=== PATIENT | male | born 1955 | race Caucasian/White ===

== ENCOUNTER 2023-01-30 08:09 | Day surgery (SDC) | payer MEDICARE, SELFPAY ==
--- NOTE | 2023-01-29 13:13 | HO.ANESPROP2 ---
HPI - Anesthesia Eval Consult details Narrative: 67yo M for Colonoscopy Follows [facility] yearly with echo. Pt reports stable witout CP/SOB. Called 01/29/2023 for office visit, ECHO, device interr. Non-ischemic CMP (d/t radiation for non-hodgkin's lymphoma) with ICD - remote monitoring Aortic stenosis - moderate Xarelto for afib - ok to hold PMFSH Past Medical History Medical History Afib Aortic stenosis Asthma with COPD BPH (benign prostatic hyperplasia) Hodgkins disease Hyperlipidemia Left bundle branch block Nonischemic cardiomyopathy Presence of combination internal cardiac defibrillator (ICD) and pacemaker Surgical History Surgical History Hx of splenectomy Social History Social History Patient Tobacco Use Status: Former Tobacco user Are you DNR?: No Advance Directives: No Advance Directives Information Provided: Yes Nutrition Risks: No Nutritional Risk Meds Allergies Allergy/AdvReac Type Severity Reaction Status Date / Time No Known Allergies Allergy Verified 01/29/23 07:18 Home Medications Medication Instructions Recorded Confirmed Last Taken Type Wixela Inhub 01/29/23 Unknown History Xarelto 01/29/23 01/24/23 History carvedilol 25 mg tablet mg 01/29/23 01/29/23 01/30/23 History diazepam 5 mg tablet mg 01/29/23 Unknown History pentoxifylline 400 mg mg PO 01/29/23 Unknown History tablet,extended release rosuvastatin 40 mg tablet mg 01/29/23 Unknown History sacubitril 24 mg-valsartan 26 mg tab 01/29/23 Unknown History tablet (Entresto) Exam Exam Date and Time: January 29, 2023 1313 Narrative Narrative: ICD interr 12/2022 on chart. No shocks, VT/VF Per office visit 10/2022 ECHO 2020 EF 40-45% Grade 1 DD Moderate with mean pressure gradient of 14, DIMPLE 1.5 No pulm htn Assessment and Plan Assessment Anesthesia Assessment: Chart Reviewed
[2023-01-30 08:24] VITALS: BP 125/65; PULSE 89; RESP 18; TEMP 36.6; O2SAT 96
[2023-01-30] MEDS: Lactated Ringers 1,000 ML 50 ML IVCONT (08:48)
--- NOTE | 2023-01-30 09:28 | HO.ANESPROP2 ---
FORM[facility]LY [facility] Past Medical History Medical History Afib Aortic stenosis Asthma with COPD BPH (benign prostatic hyperplasia) Hodgkins disease Hyperlipidemia Left bundle branch block Nonischemic cardiomyopathy Presence of combination internal cardiac defibrillator (ICD) and pacemaker Functional capacity: independent ambulation Surgical History Surgical History Hx of splenectomy Social History Social History Patient Tobacco Use Status: Former Tobacco user Are you DNR?: No Advance Directives: No Advance Directives Information Provided: Yes Nutrition Risks: No Nutritional Risk Meds Allergies Allergy/AdvReac Type Severity Reaction Status Date / Time No Known Allergies Allergy Verified 01/29/23 07:18 Active Medications: Current Medications Albuterol Sulfate (Albuterol Sulfate (0.083%) 2.5 Mg/3 Ml Vial.Neb) 2.5 mg INHALE ONCE PRN PRN Reason: Shortness of Breath/Wheezing Lactated Ringer's (Lr) 1,000 mls @ 50 mls/hr IVCONT .Q20H DANN Last Admin: 01/30/23 08:48 Dose: 50 mls/hr Home Medications Medication Instructions Recorded Confirmed Last Taken Type Wixela Inhub 01/29/23 Unknown History Xarelto 01/29/23 01/24/23 History carvedilol 25 mg tablet mg 01/29/23 01/29/23 01/30/23 History diazepam 5 mg tablet mg 01/29/23 Unknown History pentoxifylline 400 mg mg PO 01/29/23 Unknown History tablet,extended release rosuvastatin 40 mg tablet mg 01/29/23 Unknown History sacubitril 24 mg-valsartan 26 mg tab 01/29/23 Unknown History tablet (Entresto) Exam Exam Date and Time: January 30, 2023927 Height,Weight and Vital Signs: Last Vital Signs Temp 98 F 01/30/23 08:24 Pulse 89 01/30/23 08:24 Resp 18 01/30/23 08:24 BP 125/65 01/30/23 08:24 Pulse Ox 96 01/30/23 08:24 O2 Del Method Room Air 01/30/23 08:24 Airway Mallampati Class: II TM Dist: >3cm Neck ROM: Full Heart: RRR Lungs: CTA Assessment and Plan Final Anesthetic Review ASA Class: III Final Preanesthetic Review: Meds/Allgs Chart Reviewed, Consent Obtained/Reviewed and Anes Risks/Benef Reviewed Patient Risk: Intermediate Procedure Risk: Low Anesthetic Plan Anesthetic Plan: MAC: Disposition: Standard PACU
[2023-01-30 10:00] VITALS: BMI 24.4
--- NOTE | 2023-01-30 10:05 | MHC.SHP ---
Pre-Procedural Eval Section A Date of Service: 01/30/23 Section B Chief Complaint: Other fecal abnormalities Details of Present Illness: see H&P Relevant Family History (Specify if Yes): No Relevant Social History: None Present Medications: see Short Stay Collaborative assessment Medical History: Significant History History of Previous Operations: No relevant previous surgery Allergies: Allergies Allergy/AdvReac Type Severity Reaction Status Date / Time No Known Allergies Allergy Verified 01/29/23 07:18 Review of Systems Sugical H&P ROS: Negative: Constitution, Cardiovascular, Respiratory, Neurological, Psychiatric, Hem-Onc, Allergic/Immunologic, Gastrointestinal, Genitourinary, Musculoskeletal, Integumentary, Endocrine and Eyes/Ears/Nose/Throat Exam Surgical H&P Exam: Normal: HEENT, Normal: Heart, Normal: Lungs, Normal: Extremities, Normal: Abdomen, Normal: Skin and Normal: Neurological Plan Diagnosis/Plan: Unchanged I have reviewed the history and physical and performed a pertinent physical examination on my patient. No changes have occurred unless specified. Time Spent With Patient Time: Total time managing care of this patient today ____ minutes.
--- NOTE | 2023-01-30 10:50 | HO.POSTANES ---
Post Anesthesia Evaluation Post Anesthesia Evaluation Date of Service: 01/30/23 Vital Signs: Vital Signs Temp Pulse Resp BP Pulse Ox O2 Del Method 01/30/23 08:24 98 F 89 18 125/65 96 Room Air Anesthesia: Monitored Mental Status: Awake Pain Control: Satisfactory Nausea/Vomiting: None Hydration: Adequate Anesthesia-Related Issues: No Anes. Related Issues
[2023-01-30 10:52] VITALS: BP 101/79; PULSE 82; RESP 16; TEMP 36.1; O2SAT 95
--- NOTE | 2023-01-30 11:01 | P.BOP_ITS ---
Brief Operative Note Date of Service: 01/30/23 Pre-op diagnosis: see H&P Post-op diagnosis: same Surgeon: Rico Ugalde Anesthesia: MAC Was an Utilization Coordinator used for this Procedure?: No Estimated blood loss (mL): 2 Pathology: other Condition: stable Disposition: PACU
[2023-01-30 11:03] VITALS: BP 106/57; PULSE 75; RESP 18; TEMP 36.1; O2SAT 95
--- NOTE | 2023-01-30 11:22 | OP_ITS ---
DATE OF SERVICE: 01/30/2023 SURGEON: Rico Ugalde MD INDICATIONS: Abnormal findings in stool. PREOPERATIVE DIAGNOSIS: POSTOPERATIVE DIAGNOSIS: PROCEDURE PERFORMED: Colonoscopy to the terminal ileum with biopsy and snare polypectomy. ESTIMATED BLOOD LOSS: COMPLICATIONS: ANESTHESIA: Monitored anesthesia care. ASSISTANTS: SPECIMENS: DESCRIPTION OF PROCEDURE: A history and physical was performed. The risks and benefits of the procedure were explained to the patient. Informed consent was obtained. The patient was placed in the left lateral decubitus position. A digital rectal exam was performed and was found to be normal. The Olympus pediatric video colonoscope was introduced into the rectum and advanced to the cecum. The cecum was identified by transillumination, palpation, and identification of ileocecal valve. Examination was performed. The scope was removed. He tolerated the procedure well and was returned to the recovery area in stable condition. FINDINGS: The terminal ileum was examined and appeared normal. The visualized colonic mucosa was within normal limits without evidence of masses or ulcers. Multiple colonic polyps were present, all were less than 10 mm. These were removed with a combination of biopsy forceps, cold snare polypectomies, and hot snare polypectomy. Single polyps were located in the right colon at 60 cm and 50 cm. Four polyps were located at 70 cm and two at 30 cm. Retroflexed examination showed small to moderate-sized internal hemorrhoids. The quality of the prep was good. IMPRESSION: Colon polyps. RECOMMENDATION: Follow up the biopsy results. MD YOMAIRA Khan/SHIELAL / [id number]
== END 2023-01-30 12:44 | disposition home or self-care (01) ==
PROVIDERS: PCP Internal Medicine Medical Oncology; Visit Provider Internal Medicine Gastroenterology
PROC: 0DJD8ZZ Inspection of Lower Intestinal Tract, Via Natural or Artificial Opening Endoscopic (ICD-10-PCS; CPT 45378; principal; 2023-01-30 09:40)
DX: D12.2 Benign neoplasm of ascending colon (principal); D12.4 Benign neoplasm of descending colon; D12.5 Benign neoplasm of sigmoid colon; K64.8 Other hemorrhoids; R19.5 Other fecal abnormalities; E78.5 Hyperlipidemia, unspecified; I44.7 Left bundle-branch block, unspecified; I48.91 Unspecified atrial fibrillation; Z85.71 Personal history of Hodgkin lymphoma; Z95.0 Presence of cardiac pacemaker; Z79.899 Other long term (current) drug therapy
CPT/HCPCS: 45380; 45385; 88305

== ENCOUNTER 2024-07-21 10:21 | Outpatient (REF) | payer MEDICARE, SELFPAY ==
[2024-07-21 13:42] LABS: Free T4 (Free Thyroxine) 1.15 ng/dL (0.71-1.85); Thyroid Stimulating Hormone 2.68 uIU/mL (0.32-4.0)
== END 2024-07-21 10:22 | disposition home or self-care (01) ==
LOC: HO.10HDL 10:21
PROVIDERS: Visit Provider Internal Medicine Medical Oncology
DX: Z00.00 Encounter for general adult medical examination without abnormal findings (principal); E04.1 Nontoxic single thyroid nodule; R63.4 Abnormal weight loss
CPT/HCPCS: 36415; 84134; 84439; 84443

== ENCOUNTER 2024-07-22 13:31 | Outpatient (AMB) | payer MEDICARE, SELFPAY ==
--- NOTE | 2024-07-22 13:33 | A.OFFVIS_ITS ---
Vital Signs 07/22/24 13:34 Weight 160 lb 14.999 oz BP 128/62 Blood Pressure Location Rt brachial Position Sitting Pulse 95 Pulse Source Pulse Oximeter Pulse Oximetry (%) 90 L Oxygen Delivery Method Room Air Intake Visit Reasons: Pulmonary Nodule Allergies No Known Allergies Allergy (Verified 07/22/24 13:38) Medication List - Last Reconciled 07/22/24 by Kaylyn Heredia LPN carvedilol mg diazepam mg pentoxifylline ER mg PO rosuvastatin mg sacubitril-valsartan 24-26 mg (Entresto) tabs [Wixela Inhub ] [Xarelto ] HPI HPI Pulmonary Nodule: Details: 68-year-old gentleman, remote approximately 15 pack-year smoker, quit over 30 years prior, with history of Hodgkin's lymphoma status post radiation 49 years prior who is being evaluated for TAVR at [facility] and as a part of evaluation had CT chest that demonstrated multiple pulmonary nodules. Patient is also complain of unintended weight loss of approximately 10 lb over the last 3 months. He has been using Wixela for underlying reactive airway disease. 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 [facility] Medical History (Updated 07/22/24 @ 14:18 by Jose Corey MD) Afib Presence of combination internal cardiac defibrillator (ICD) and pacemaker Asthma with COPD Left bundle branch block BPH (benign prostatic hyperplasia) Aortic stenosis Nonischemic cardiomyopathy Hodgkins disease Hyperlipidemia Surgical History Hx of splenectomy Social History (Updated 07/22/24 @ 13:39 by Kaylyn Heredia LPN) Patient Tobacco Use Status: Former Tobacco user Tobacco use type: Cigarette Years Smoked: 20 Review of Systems Const Denies daytime sleepiness, Denies excessive sweating, Denies fatigue, Denies fever(s), Denies lethargy, Denies malaise, Denies night sweats, Denies snoring and Reports weight loss Eyes Denies blurry vision and Denies itchy eyes ENT Denies nasal congestion, Denies post nasal drip, Denies sinus pain, Denies sinus pressure and Denies other ( Thrush) Card Denies chest pain, Denies pedal edema, Denies dyspnea, Reports dyspnea on exertion, Denies orthopnea and Denies paroxysmal nocturnal dyspnea Resp Denies cough, Denies hemoptysis, Denies excessive phlegm production, Denies dyspnea, Reports dyspnea on exertion, Denies snoring and Denies wheezing GI Denies abdominal pain and Denies heartburn Musc Denies myalgias, Denies arthralgias and Denies joint swelling Skin/Breast Denies rash Neuro Denies memory loss and Denies seizure-like activity Psych Denies abnormal sleep pattern, Denies anxiety and Denies memory loss Endo Denies excessive sweating, Denies fatigue and Denies heat intolerance Chon/Lymph Denies easy bruising Aller/Immun Denies itchy eyes, Denies seasonal rhinorrhea and Denies wheezing Physical Exam Vital Signs: Last Vital Signs Pulse 95 07/22/24 13:34 BP 128/62 07/22/24 13:34 Pulse Ox 90 L 07/22/24 13:34 Oxygen Delivery Method Room Air 07/22/24 13:34 Const General: no acute distress and alert Nutritional Appearance: not obese Orientation/consciousness: Other orientation findings ( oriented) HEENT Head: Yes atraumatic Eyes General: appearance normal, both eyes and all related structures Sclerae: sclerae normal EOM: EOMs intact bilaterally Neck Neck: Yes supple Lymphatic: no lymphadenopathy noted Resp Effort & Inspection: normal respiratory effort and no use of accessory muscles Auscultation: clear to auscultation bilaterally Cardio Rate: regular rate Rhythm: regular rhythm Heart sounds: no gallops, no murmurs and no rubs Skin General skin exam: other ( warm) Extrem General: No clubbing, No cyanosis and No edema Assessment & Plan Assessment & Plan (1) Pulmonary nodules: Code(s): R91.8 - Other nonspecific abnormal finding of lung field Category: Medical Plan: Multiple greater than 1 cm pulmonary nodules on a background of remote Hodgkin's status post XRT and more recent unintended weight loss of about 10 lb in the last 3 months. Will obtain PET scan. (2) Asthma with COPD: Code(s): J44.9 - Chronic obstructive pulmonary disease, unspecified Category: Medical Plan: Continue baseline regimen of Wixela and albuterol MDI. Orders: Orders PET CT fusion skull to thigh Today R91.8 - Other nonspecific abnormal finding of lung field Coding Level of Care Code New Pt Level 4 (86777) Diagnoses Pulmonary nodules R91.8 Asthma with COPD J44.9
[2024-07-22 13:34] VITALS: BP 128/62; PULSE 95; O2SAT 90
== END 2024-07-22 14:06 | disposition home or self-care (01) ==
PROVIDERS: PCP Internal Medicine Medical Oncology; Referring Provider Nurse Practitioner Family; Visit Provider Internal Medicine Pulmonary Disease
DX: R91.8 Other nonspecific abnormal finding of lung field (principal); J44.9 Chronic obstructive pulmonary disease, unspecified
CPT/HCPCS: 99204

== ENCOUNTER → 2024-07-22 13:31 | Outpatient (BNVA) | payer MEDICARE, SELFPAY | PROVIDERS: PCP Internal Medicine Medical Oncology; Referring Provider Nurse Practitioner Family; Visit Provider Internal Medicine Pulmonary Disease | DX: R91.8 Other nonspecific abnormal finding of lung field (principal); J44.9 Chronic obstructive pulmonary disease, unspecified; Z87.891 Personal history of nicotine dependence | CPT/HCPCS: 99202 ==

== ENCOUNTER 2024-08-06 10:31 | Outpatient (AMB) | payer MEDICARE, SELFPAY ==
[2024-08-06 10:41] VITALS: BP 144/67; PULSE 84; O2SAT 94; BMI 24.0
--- NOTE | 2024-08-06 10:41 | A.OFFVIS_ITS ---
Vital Signs 08/06/24 10:41 Height 5 ft 10 in Weight 167 lb BMI 24.0 BP 144/67 H Blood Pressure Location Lt brachial Position Sitting Pulse 84 Pulse Source Doppler Pulse Oximetry (%) 94 Oxygen Delivery Method Room Air Intake Visit Reasons: Pulmonary Nodule Allergies No Known Allergies Allergy (Verified 08/06/24 10:46) HPI HPI Pulmonary Nodule: Details: 68-year-old gentleman, remote approximately 15 pack-year smoker, quit over 30 years prior, with history of Hodgkin's lymphoma status post radiation 49 years prior who is being evaluated for TAVR at [facility] and as a part of evaluation had CT chest that demonstrated multiple pulmonary nodules. Patient is also complain of unintended weight loss of approximately 10 lb over the last 3 months. He has been using Wixela for underlying reactive airway disease. 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 After the last office visit patient PET-CT that did not demonstrate significant FDG uptake in his parenchymal or mediastinal nodules. Patient stated he also has been under lot of stress over the last several months secondary to passing of his child and now he is again gaining weight. [facility] Medical History (Updated 07/22/24 @ 14:18 by Jose Corey MD) Afib Presence of combination internal cardiac defibrillator (ICD) and pacemaker Asthma with COPD Left bundle branch block BPH (benign prostatic hyperplasia) Aortic stenosis Nonischemic cardiomyopathy Hodgkins disease Hyperlipidemia Surgical History Hx of splenectomy Social History Patient Tobacco Use Status: Former Tobacco user Tobacco use type: Cigarette Years Smoked: 20 Review of Systems Const Denies daytime sleepiness, Denies excessive sweating, Denies fatigue, Denies fever(s), Denies lethargy, Denies malaise, Denies night sweats, Denies snoring and Denies weight loss Eyes Denies blurry vision and Denies itchy eyes ENT Denies nasal congestion, Denies post nasal drip, Denies sinus pain, Denies sinus pressure and Denies other ( Thrush) Card Denies chest pain, Denies pedal edema, Denies dyspnea, Denies orthopnea and Denies paroxysmal nocturnal dyspnea Resp Denies cough, Denies hemoptysis, Denies excessive phlegm production, Denies dyspnea, Denies snoring and Denies wheezing GI Denies abdominal pain and Denies heartburn Musc Denies myalgias, Denies arthralgias and Denies joint swelling Skin/Breast Denies rash Neuro Denies memory loss and Denies seizure-like activity Psych Denies abnormal sleep pattern, Denies anxiety and Denies memory loss Endo Denies excessive sweating, Denies fatigue and Denies heat intolerance Chon/Lymph Denies easy bruising Aller/Immun Denies itchy eyes, Denies seasonal rhinorrhea and Denies wheezing Physical Exam Vital Signs: Last Vital Signs Pulse 84 08/06/24 10:41 BP 144/67 H 08/06/24 10:41 Pulse Ox 94 08/06/24 10:41 Oxygen Delivery Method Room Air 08/06/24 10:41 BMI result Body Mass Index 24.0 Const General: no acute distress and alert Nutritional Appearance: not obese Orientation/consciousness: Other orientation findings ( oriented) HEENT Head: Yes atraumatic Eyes General: appearance normal, both eyes and all related structures Sclerae: sclerae normal EOM: EOMs intact bilaterally Neck Neck: Yes supple Lymphatic: no lymphadenopathy noted Resp Effort & Inspection: normal respiratory effort and no use of accessory muscles Auscultation: clear to auscultation bilaterally Cardio Rate: regular rate Rhythm: regular rhythm Heart sounds: no gallops, no murmurs and no rubs Skin General skin exam: other ( warm) Extrem General: No clubbing, No cyanosis and No edema Assessment & Plan Assessment & Plan (1) Asthma with COPD: Code(s): J44.9 - Chronic obstructive pulmonary disease, unspecified Category: Medical Plan: Well controlled on current regimen of Wixela and albuterol MDI. Continue current regimen. (2) Pulmonary nodules: Code(s): R91.8 - Other nonspecific abnormal finding of lung field Category: Medical Plan: Results of PET scan reviewed, no significant FDG uptake in mediastinal or pa renchymal nodules. Will repeat CT chest in 3 months. Coding Level of Care Code Est Pt Level 4 (58143) Diagnoses Asthma with COPD J44.9 Pulmonary nodules R91.8
--- OUTSIDE RECORDS SUMMARY | 2024-08-06 11:40 | XMS_ITS ---
Author Organization Arnaud Armando III, MD Address [address] [place] [address] Care Team Providers Care Cheese Cooker Name Role Phone Arnaud Armando Primary Care Provider [phone] Allergies Allergen (clinical drug ingredient) Drug/Non Drug [...] Date Provider Diagnosis Arnaud Armando III, MD [address] [place] [address] [place] [address] 07/30/2024 Arnaud Armando Aortic stenosis Q25. 3 [...] Q25.3) He will continue to see the accounting technician and appropriate intervals. He would be a good medical candidate for cardiac surgery if necessary.Appointmen t to see his accounting technician this month. 07/30/2024 Cardiomyopathy (ICD-10 - I42.9) His cardiomyopathy is compensated and there was no sign of congestive heart failure today. He is seen regularly by the accounting technician. He is doing much better on the [...] Up: 2 Weeks, Reason: Telehealth Provider Name:Arnaud Armando, 08/13/2024 03:15:00 PM, [address] [place] [address] [address], [place], [address], Provider Name:Arnaud Armando, 07/22/2025 09:30:00 AM, [address] [place] [address] [address], [place], [phone], Progress Notes * Nahed ANDERSONOB:1955 ([age] yo M)Acc No.[id number]:07/30/2024 Patient:?Nicholas ANDERSON Provider:?Arnaud Armando MD :1955???Age:68 Y???Sex:Male Mando e:07/30/2024 Address:[address] [place], [place] [id number] Subjective: * Chief Complaints: * ???Telehealth * HPI: ???:? This telehealth visit took place over 22 minutes with the patient at home and me in my office.? He gave consent for billing.? He has become short of breath with exertion which has been found to be due to aortic stenosis and aortic insufficiency.? He has been seen at [facility] cardiology and a TAVR procedure has been recommended. A preoperative CT scan of the chest showed several pulmonary nodules.? A thyroid nodule was also seen.? An ultrasound of the thyroid has been ordered but not yet done.? A pulmonary consultation was made and he saw Dr. Corey at [facility].? A PET CT scan was ordered and will be done in the near future.? The patient reports no new findings or symptoms. ?Telehealth?Location of provider rendering services:?{...} [address] [facility] [address] ?Location of patient:?address listed in demographics for today's visit ?Patient identification confirmed using:?Name, ?Telehealth method:?Telephone only. Patient not visible to care provider. ?Consent:?Patient verbally consented to treatment, Patient verbally consented to billing insurance company, Patient informed of any privacy concerns related to method of visit ?Total time spent with patient (mins)?15 * ROS:?General/Constitutional:?pain?Neck and shoulders, otherwise only normal aches and pains.?Chills?denies.?Fatigue?admits.?Fever?denies.?ENT:?Decreased hearing?denies.?Respiratory:?Cough?denies.?Cardiovascular:?Chest pain with exertion?denies.?Dyspnea on exertion?denies.?Shortness of breath?with exertion.?Gastrointestinal:?Constipation?occasional.?Decreased appetite?denies.?Diarrhea?denies.?Heartburn?denies.?Nausea?denies.?Rectal bleeding?denies.?Vomiting?denies.?Hematology:?bruising?denies.?petechiae?denies.?Swollen glands?none have been noted.?Genitourinary:?Frequent urination?once a night.?Musculoskeletal:?Muscle aches?denies.?Painful joints?denies.?Sciatica?denies.?Weakness?denies.?Skin:?Itching?denies.?Rash?denies.?Skin lesion(s)?denies.?Neurologic:?Difficulty speaking?denies.?Dizziness?denies.?Headache?denies.?Low back pain?denies.?Psychiatric:?Depressed mood?which is moderate.? * Medical History:? 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 1 son(s) , 1 daughter(s) - healthy. .? He has an identical twin brother. Son due to Angiochleoblastoma. * Social History:?Tobacco Use:?Tobacco Use/Smoking?Patient is a?former smoker ?How long has it been since you last smoked??> 10 years ?Additional Findings: Tobacco Non-User?Ex-cigarette smoker ?Tobacco Control (Standard)?Tobacco use:?Former smoker ?How long has it been since you last smoked??Greater than 10 years ?Additional Findings: Tobacco non-user?Ex-cigarette smoker ???He was born in [place]. He is and has 3 children. He has a twin. * Medications:?TakingWixela In hub 250-50 MCG/ACT Aerosol Powder Breath Activated INHALE [...] reviewed and reconciled with the patient * Allergies:?No Known Drug All ergyno[Allergies Verified] Objective: * Vitals:?Ht: 70, Wt:163, BMI: 23.39, Ht-cm: 177.8, Wt-k.94. * ???Past Orders: ???Lab:Thyroid Stimulating H elba (Order Date - 07/21/2024) (Collection Date & Time - 07/21/2024 10:28 AM) ? Value Reference Range ?Thyroid Stimulating Hormone 2.68 0.32-4.0 - uIU/mL ???Lab:Free T4 (Free Thyroxi ne) (Order Date - 07/21/2024) (Collection Date & Time - 07/21/2024 10:28 AM) ? Value Reference Range ?Free T4 (Free Thyroxine) 1.15 0.71-1.85 - ng/dL ???Lab:Prealbumin (Order Mando e - 07/21/2024) (Collection Date & Time - 07/21/2024 10:28 AM) ? Value Reference Range ?Prealbumin 24.0 20-40 - m g/dL Lab:URINE DIP STICK * Collection Date 07/21/2024 [...] Menstrating NR N/A n/a Assessment: * Assessment: 1.?Aortic stenosis - Q25.3 ( Primary)???Notes :He will continue to see the accounting technician and appropriate intervals. He would be a good medical candidate for cardiac surgery if necessary.Appointment to see his accounting technician this month.???2.?Cardiomyopathy - I42.9???Notes :His cardiomyopathy is compensated and there was no sign of congestive heart failure today. He is seen regularly by the accounting technician. He is doing much better on the entresto.???3.?Hodgkin's disease - C81.90???Notes :There is no sign of a new primary lymphoma.???4.?Other and unspecified hyperlipidemia - E78.5???Notes :Her recent lipid profile shows good control of his lipids in no change in his regimen was needed.???5.?Asthma - J45.909???Notes :He is breathing comfortably. No wheezes are heard on examination. No change in his regimen as needed. His COPDD is mild.???6.?COPD (chronic obstructive pulmonary disease) - J44.9???Notes :He is not smoking and his COPD is mild. No change in his therapy was needed.???7.?Neuromuscular disease - G70.9???Notes :He continues to complain of pain because of the weakness in his neck and back muscles which is from the radiation therapy he received many years ago for Hodgkin's disease.???8.?Pulmonary nodules - R91.8???9.?Thyroid nodule - E04.1???Notes :A significant thyroid nodule in the left lobe was an incidental finding on recent imaging for his heart. He has been losing weight and thyroid function tests have been ordered as well as an ultrasound of the thyroid gland.??? Plan: * Treatment: 2.?Others? Continue Wixela Inhub Aerosol Powder Breath Activated, 250-50 MCG/ACT, INHALE 1 PUFF BY MOUTH TWICE A DAY.?? * Procedure Codes:? * Preventive Medicine:? ??Counseling:?Smoking/Tobacco Use?Patient counseled on the dangers of tobacco use and urged to quit.?07/30/2024 ??COPD Care Plan:?Patient Lifestyle Goals?Relieve symptoms and improve quality of life, Reduce number of ED and hospitalizations, Be able to be more active with friends and family.?Treatment Goals?Eat a nutritious diet and increase water consumption to 6-8 glasses a day, Exercise to help whole body, including lungs.?Barriers?no barriers.?Self-Managment Goals?Get an air purifier for the rooms you are in the most, Eat a healthy diet.? * Follow Up:?2 Weeks (Reason: Telehealth) * Images: * Sign off status: Completed true * Provider:?Arnaud Armando MD Date:?07/16 Generated for Janny mesa/Ed/eTransmitting on:?08/06/2024 11:40 AM EST History and Physical Notes * HPI (History of Present Illness) Category Sub-Category Detail Notes Telehealth Location of [facility] rendering services:: {...} [address] [place] [id number] Location of patient:: address listed in demographics [...]
--- OUTSIDE RECORDS SUMMARY | 2024-08-06 11:40 | XMS_ITS ---
Author Organization Arnaud Armando III, MD Address [address] [place] [address] Care Team Providers Care Digital Sales Planner Name Role Phone Arnaud Armando Primary Care Provider REASON FOR VISIT Message Social History Sex Assigned At : Social History Observation Description Sex Assigned At Male Encounters Encounter Location Date Provider Diagnosis Arnaud Armando III, MD [address] [place] [address] [place] [address] 07/22/2024 Arnaud Armando Plan Of Treatment Next Appt Details Provider Name:Arnaud Armando, 08/13/2024 03:15:00 PM, [address] [place] [address] [place], [address], Provider Name:Arnaud Armando, 07/22/2025 09:30:00 AM, [address] [place] [address] DR, [address], [place], [address], Progress Notes * Nahed ANDERSONOB:1955 ([age] yo M)Acc No.[id number]:07/22/2024 Patient:?Nicholas ANDERSON :1955???Age:68 Y???Sex:Male Address:[address] [place] [id number] * true * Date:? Generated for Janny mesa/Ed/eTjaymiesmitting on:?08/06/2024 11:40 AM EST
--- OUTSIDE RECORDS SUMMARY | 2024-08-06 11:41 | XMS_ITS ---
Author Organization [facility] Address [address] [place] [address] Care Team Providers Care Data Software Engineer Name Role Phone Prabha LIU, Arnaud Primary Care Provider Unavailab Rico Garrido Jr REASON FOR VISIT pathology Encounters Encounter Location Date Provider Diagnosis [facility] [address] [place] [address] 02/09/2023 Rico Ugalde Jr PLAN OF TREATMENT No Information
--- OUTSIDE RECORDS SUMMARY | 2024-08-06 11:41 | XMS_ITS | Encounter Summary ---
Author Organization [facility] Address [address] [place] [address] Care Team Providers Care Legislative Analyst Name Role Phone Unavailable Primary Care Provider Unavailabl e Reason for Referral * Imaging (Routine) - Closed Specialty Diagnoses / Procedures Referred By Hanna gomes Referred To Contact Radiology Diagnoses Other nonspecific abnormal finding of lung field Procedures PET CT Skull to Mid Thigh Initial Jose Corey MD [address] [place] [phone] [facility] Referral ID Status Reason Start Date Expiration Date Visits Re quested Visits Authorized [id number] Closed 07/30/2024 07/30/2025 1 1 Reason for Visit * Imaging (Routine) - Closed Specialty Diagnoses / Procedures Referred By Hanna gomes Referred To Contact Radiology Diagnoses Other nonspecific abnormal finding of lung field Procedures PET CT Skull to Mid Thigh Initial Jsoe Corey MD [address] [place] [phone] [facility] Referral ID Status Reason Start Date Expiration Date Visits Re quested Visits Authorized [id number] Closed 07/30/2024 07/30/2025 1 1 Encounter Details Date Type Department Care Team (Latest Contact Info) Description 07/31/2024 1:29 PM EST Hospital Encounter [facility] PET Scan [address] [place] [address] Other nonspecific abnormal finding of lung field Social History Tobacco Use Types Packs/Day Years Used Date Smoking Tobacco: Never Assessed Sex and Gender Information Value Date Recorded Sex Assigned at Not on file Gender Identity Not on file Sexual Orientation Not on file documented as of this encounter Plan of Treatment Not on file documented as of this encounter Procedures Procedure Name Priority Date/Time Associated Diagnosis Comments PET CT SKULL TO MID THIGH INITIAL Routine 07/31/2024 3:40 PM EST Other nonspecific abnormal finding of lung field documented in this encounter Results * PET CT Skull to Mid Thigh Initial (07/31/2024 3:40 PM EST) Anatomical Region Laterality Modality Body Radiographic Lorene ging 08/04/2024 3:27 AM EST Impressions 08/04/2024 5:12 AM EST 1. ??Bilateral multifocal nodular opacities demonstrating variable FDG activity likely postinfectious/postinflammatory in etiology. ??Follow-up with chest CT can be obtained after treatment to ensure resolution/clearing. 2. ??10 mm nodule in the left lower lobe of the lung not demonstrating significant FDG activity. ??10 mm nodule in the right lower lobe of the lung demonstrates mild FDG activity. ??This may be postinfectious or postinflammatory. ??Short-term follow-up is recommended to ensure clearing and exclude underlying malignancy. 3. ??Abdominal and pelvic lymph nodes not demonstrating significant FDG activity in comparison to background mediastinal blood pool. 4. Indeterminate left thyroid nodule demonstrating asymmetric FDG activity. ??Correlation with thyroid ultrasound is recommended. Please note: The CT was acquired at a low radiation dose settings. ??The images are of nondiagnostic quality and used solely for purposes of attenuation correction and slice localization for the PET scan. ??If a diagnostic CT study is desired it must be ordered separately. -------- FINAL REPORT -------- Dictated By: Christine Grajeda Dictated Date: 08/04/2024 03:27 ET Assigned Physician: Christine Grajeda Reviewed and Electronically Signed By: Christine Grajeda Signed Date: 08/04/2024 05:12 ET Workstation ID: [id number] Transcribed By: Self Edit Transcribed Date: 08/04/2024 03:27 ET Narrative 08/04/2024 5:12 AM EST INDICATION: LUNG CANCER SUSPECTED. ??Outside CT of the chest demonstrated 12 mm solid nodule in the left lower lobe. ??History of Hodgkin's lymphoma status post radiation and splenectomy. TECHNIQUE: FDG PET-CT imaging was performed from the skull bases through the thighs in a single acquisition with data set reconstructed in axial, coronal, and sagittal planes at the computer workstation with fused data from both the PET imaging study and attenuation correction CT. The CT portion of the examination was done strictly for attenuation correction and is not a true diagnostic CT examination. DLP: ??1209 mGy-cm Radiopharmaceutical: 11.6 mCi of F-18 FDG IV. Blood glucose: 100 mg/dl. COMPARISON: Correlation is made with outside CT Angio Chest TAVR 07/08 FINDINGS: ??SUV Max: ??Mediastinal Blood Pool: ??3.2 Liver: ??3.6 HEAD AND NECK: No abnormal FDG activity. ??Nonenlarged supraclavicular/lower cervical lymph nodes without significant FDG activity measuring up to SUV Max 1.9. ??Retention cyst versus polyp in the left maxillary sinus with mucosal thickening the right maxillary sinus. ??Low-attenuation lesions in the thyroid gland, the largest in the left thyroid lobe measuring approximately 2.4 x 1.5 cm SUV max 2.8 on the left and 1.4 on the right. THORAX: 10 mm solid nodule in the left lower lobe SUV max 0.3. ??10 mm nodule in the right lung base SUV max 2.1. Scattered multifocal bilateral tree-in-bud/centrilobular opacities demonstrating variable FDG activity SUV max 2.4 in the right upper lobe and 2.0 in the superior segment of the left lower lobe. ??Bronchial wall thickening. Mediastinal lymph nodes not demonstrating significant FDG activity comparison to background. ??For example subcarinal lymph node SUV max 2.8 (mediastinal blood pool SUV Max 3.2). ?? Left-sided pacing device. ??Aortic annular and coronary artery as well as thoracic aortic calcifications. ??Bilateral gynecomastia. ABDOMEN/PELVIS: Scattered nonenlarged abdominal and pelvic lymph nodes without significant FDG activity compared to blood pool including gastrohepatic SUV Max 2, retroperitoneal measuring up to SUV Max 2.2 and obturator nodes SUV Max 2.1. Postsurgical appearance status post splenectomy with surgical clips also noted near the vicenta hepatis. ??Bilateral low-attenuation lesions within the kidneys without significant FDG activity. ??Bilateral fat-containing inguinal hernias. Nonspecific focal FDG activity within the anal canal SUV max 4.3. MUSCULOSKELETAL: Degenerative changes with associated FDG activity, for example along the right hip and both shoulders. Procedure Note Christine Grajeda MD - 08/04/2024 INDICATION: LUNG CANCER SUSPECTED. Outside CT of the chest [id number] mm solid nodule in the left lower lobe. History of Hodgkin's lymphomastatus post radiation and splenectomy. TECHNIQUE: FDG PET-CT imaging was performed from the skull bases throughthe thighs in a single acquisition with data set reconstructed in axial,coronal, and sagittal planes at the computer workstation with fused datafrom both the PET imaging study and attenuation correction CT. The CTportion of the examination was done strictly for attenuation correctionand is not a true diagnostic CT examination. DLP: 1209 mGy-cm Radiopharmaceutical: 11.6 mCi of F-18 FDG IV. Blood glucose: 100 mg/dl. COMPARISON: Correlation is made with outside CT Angio Chest TAVR 07/08 FINDINGS: SUV Max: Mediastinal Blood Pool: 3.2 Liver: 3.6 HEAD AND NECK: No abnormal FDG activity. Nonenlargedsupraclavicular/lower cervical lymph nodes without significant FDGactivity measuring up to SUV Max 1.9. Retention cyst versus polyp in theleft maxillary sinus with mucosal thickening the right maxillary sinus.Low-attenuation lesions in the thyroid gland, the largest in the leftthyroid lobe measuring approximately 2.4 x 1.5 cm SUV max 2.8 on the leftand 1.4 on the right. THORAX: 10 mm solid nodule in the left lower lobe SUV max 0.3. 10 mmnodule in the right lung base SUV max 2.1. Scattered multifocal bilateral tree-in-bud/centrilobular opacitiesdemonstrating variable FDG activity SUV max 2.4 in the right upper lobeand 2.0 in the superior segment of the left lower lobe. Bronchial wallthickening. Mediastinal lymph nodes not demonstrating significant FDG activitycomparison to background. For example subcarinal lymph node SUV max 2.8(mediastinal blood pool SUV Max 3.2). Left-sided pacing device. Aortic annular and coronary artery as well asthoracic aortic calcifications. Bilateral gynecomastia. ABDOMEN/PELVIS: Scattered nonenlarged abdominal and pelvic lymph nodeswithout significant FDG activity compared to blood pool includinggastrohepatic SUV Max 2, retroperitoneal measuring up to SUV Max 2.2 andobturator nodes SUV Max 2.1. Postsurgical appearance status post splenectomy with surgical clips alsonoted near the vicenta hepatis. Bilateral low-attenuation lesions withinthe kidneys without significant FDG activity. Bilateral fat-containinginguinal hernias. Nonspecific focal FDG activity within the anal canal SUV max 4.3. MUSCULOSKELETAL: Degenerative changes with associated FDG activity, forexample along the right hip and both shoulders. IMPRESSION: 1. Bilateral multifocal nodular opacities demonstrating variable FDGactivity likely postinfectious/postinflammatory in etiology. Follow-upwith chest CT can be obtained after treatment to ensureresolution/clearing. 2. 10 mm nodule in the left lower lobe of the lung not demonstratingsignificant FDG activity. 10 mm nodule in the right lower lobe of thelung demonstrates mild FDG activity. This may be postinfectious orpostinflammatory. Short-term follow-up is recommended to ensure clearingand exclude underlying malignancy. 3. Abdominal and pelvic lymph nodes not demonstrating significant FDGactivity in comparison to background mediastinal blood pool. 4. Indeterminate left thyroid nodule demonstrating asymmetric FDGactivity. Correlation with thyroid ultrasound is recommended. Please note: The CT was acquired at a low radiation dose settings. The images are ofnondiagnostic quality and used solely for purposes of attenuationcorrection and slice localization for the PET scan. If a diagnostic CTstudy is desired it must be ordered separately. -------- FINAL REPORT -------- Dictated By: Christine Grajeda Dictated Date: 08/04/2024 03:27 ET Assigned Physician: Christine Grajeda Reviewed and Electronically Signed By: Christine Grajeda Signed Date: 08/04/2024 05:12 ET Workstation ID: [id number] Transcribed By: Self Edit Transcribed Date: 08/04/2024 03:27 ET Jose Corey MD IMG NM PROCEDURES documented in this encounter Visit Diagnoses Diagnosis Other nonspecific abnormal finding of lung field documented in this encounter Administered Medications Inactive Administered Medications - up to 3 most recent administrations Medication Order MAR Action Action Date Dose Rate Site F-18 FDG pet diag radio-isotope injection 11.6 millicurie 11.6 millicurie, intravenous, Once in imaging, Starting on Amral 07/31/24 at 1415, For 1 dose Given 07/31/2024 2:12 PM EST 11.6 millicuries Right Antecubital documented in this encounter Orders Medications Ordered That Danyel ht Not Have Been Administered Count Last Ordered Date First Ordered Date F-18 FDG pet diag radio-isot ope injection 11.6 millicurie 1 07/31/2024 documented in this encounter
--- OUTSIDE RECORDS SUMMARY | 2024-08-06 11:41 | XMS_ITS ---
Author Organization Arnaud Armando III, MD Address [address] [place] [address] Care Team Providers Care Mid Level Developer Name Role Phone Arnaud Armando Primary Care Provider Allergies Allergen (clinical drug [...] Prealbumin Reviewed date:07/22/2024 05:18:01 PM Interpretation: Performing Lab:[facility], [address] [place] [phone] Notes/Report: FAX RESULTS TO [phone] Prealbumin 24.0 20-40 mg/dL Free T4 (Free Thyroxine) Reviewed date:07/22/2024 05:18:01 PM Interpretation: Performing Lab:[facility], [address] [place] [phone] Notes/Report: FAX RESULTS TO [phone] Free T4 (Free Thyroxine) 1.15 0.71-1.85 ng/dL REASON FOR VISIT annual exam Medications Medication [...] W/U Status Risk Notes Problem Weight loss (59128874) Weight loss (R63.4) Active confirmed Has been losing weight steadily for unclear reasons. Recently nodules in his lung have been found. On evaluation will be conducted. Problem [id number] Nonrheumatic aortic valve insufficiency (I35.1) Active confirmed [...] Date Provider Diagnosis Arnaud Armando III, MD [address] [place] [address] [address] [place], [place] [phone] 07/21/2024 Arnaud Armando Aortic stenosis Q25. 3 [...] Q25.3) He will continue to see the tattoo designer and appropriate intervals. He would be a good medical candidate for cardiac surgery if necessary.Appointment to see his tattoo designer this month. 07/21/2024 Nonrheumatic aortic valve insufficiency [...] today. He is seen regularly by the tattoo designer. He is doing much better on the [...] with food O rally Twice a day Pending Test Test Name Order Date TSH (THYROID STIMULATING HORMONE) 2024 US thyroid 07/21/2024 Next Appt Details Follow Up: 1 Week, 7 to 10 d ays from now, Reason: Telehealth, To discuss the results of the TAVR conference and the patient's condition Provider Name:Arnaud Armando, 08/13/2024 03:15:00 PM, [address] [place] [address] [address]ER[address] KAPLAN, [place], [phone], Provider Name:Arnaud Armando, 07/22/2025 09:30:00 AM, [address] [place] [address] DERIAN KAPLAN, [place], [phone], Progress Notes * Nahed ANDERSONOB:1955 ([age] yo M)Acc No.[id number]:07/21/2024 Progress Notes Patient:?Nicholas ANDERSON Provider:?Arnaud Armando MD :1955???Age:68 Y???Sex:Male Mando e:07/21/2024 Address:[address] [place], [place] [phone] Subjective: * Chief Complaints: * ???Annual exam * HPI: ???Depression Screening:?PHQ-9?Little interest or pleasure in doing things?Not at all ?Feeling down, depressed, or hopeless?Not at all ?Trouble falling or staying asleep, or sleeping too much?More than half the days ?Feeling tired or having little energy?Not at all ?Poor appetite or overeating?Not at all ?Feeling bad about yourself or that you are a failure, or have let yourself or your family down?Not at all ?Trouble concentrating on things, such as reading the newspaper or watching television?Not at all ?Moving or speaking so slowly that other people could have noticed; or the opposite, being so fidgety or restless that you have been moving around a lot more than usual?Not at all ?Thoughts that you would be better off or of hurting yourself in some way?Not at all ?Total Score?2 ?Interpretation?Minimal Depression ???COVID-19 Screening:?dr kristine wing sent him to [facility]. ?Questions?Have you had any new onset fever, chills, cough, congestion, sore throat, shortness of breath, muscle aches??No ???Fall Risk Screening:?Fall History?Have you had any falls with injury in the past year??No ?Have you had two or more falls in the past year??No ?Fall Risk Assessment:?No falls in the past year ???SDOH Questions:?SDOH Questions?In the past year have you been worried about losing your housing??No ?In the past year have you or any family members you live with been unable to get any of the following when it was really needed? Check all that apply:?None ???:?The patient is a 68-year-old male who has [...] recently by cardiology and cardiac surgery at [facility].? He needs an aortic valve replacement.? He is being presented at TAVR conference later this week to see if this is feasible.? Otherwise he will have the valve replaced surgically.? The imaging showed a nodule in the left lobe of his thyroid and ultrasound was recommended.? Nodules were seen in his lungs as well some of which were bigger than 1 cm.? I have ordered an ultrasound of the thyroid.? Pulmonary nodules will be evaluated in view of his recent weight loss.? The weight loss remains unexplained could be due to depression as his son is quite ill.? It could be due to hyperthyroidism and blood work was ordered today.? Malignancy is possible but no primary tumor has been found.? In the future he may need a PET CT scan. The imaging also showed multiple areas in both lungs of tree in bud abnormality.? He has a distinctly productive cough.? He is bringing up thick white phlegm.? I have given him an antibiotic to remove any bacterial process in his lungs prior to his cardiac procedure.? A follow-up visit was arranged. * ROS:?General/Constitutional:?pain?Neck and back.?Chills?denies.?Fatigue?admits.?Fever?denies.?ENT:?Decreased hearing?denies.?Respiratory:?Cough?denies.?Cardiovascular:?Chest pain with exertion?denies.?Dyspnea on exertion?denies.?Shortness of breath?with exertion.?Gastrointestinal:?Constipation?denies.?Decreased appetite?denies.?Diarrhea?denies.?Heartburn?denies.?Nausea?denies.?Rectal bleeding?denies.?Vomiting?denies.?Hematology:?bruising?denies.?petechiae?denies.?Swollen glands?none have been noted.?Genitourinary:?Frequent urination?once a night.?Musculoskeletal:?Muscle aches?denies.?Painful joints?denies.?Sciatica?denies.?Weakness?that is mild.?Skin:?Itching?denies.?Rash?denies.?Skin lesion(s)?denies.?Neurologic:?Difficulty speaking?denies.?Dizziness?denies.?Headache?denies.?Low back pain?denies.?Psychiatric:?Depressed mood?which is moderate.? [...] 10 years ?Additional Findings: Tobacco non-user?Ex-cigarette smoker ???Drugs/Alcohol:?Drugs?Have you used drugs other than those for medical reasons in the past 12 months??No ???Drug/Alcohol:?AUDIT-C (Standard)?Did you have a drink containing alcohol in the past year??No ?Points?0 ?Interpretation?Negative ???He was born in [place]. He is and has 3 children. He [...] Objective: * Vitals:?Ht: 70, Wt:163, BMI: 23.39, BP:134/73, HR:80, Temp:98.2, Wt-k.94. * ???Past Orders: Lab:URINE DIP STICK * Collection Date [...] neg Menstrating NR N/A n/a * Examination: ???General Examination: ?GENERAL APPEARANCE:?pleasant, well nourished, well developed, in no acute distress, Depressed gentleman.?HEAD:?atraumatic, normocephalic.?EYES:?eomi, perrla, anicteric, conjugate.?EARS:?normal.?NOSE:?septum intact.?ORAL CAVITY:?normal, unremarkable.?NECK/THYROID:?no jugular venous distention, no carotid bruit, thyroid nodule not palpable.?LYMPH NODES:?no enlarged lymph nodes,spleen normal.?SKIN:?no suspicious lesions, anicteric.?HEART:?no clicks, gallops; 1/6 systolicmurmu;?no?rubs, regular rhythm, S1, S2 normal, no s3, or vascular bruits.?LUNGS:?, diminished breath sounds throughout, rhonchi on the LEFT, rhonchi on the RIGHT.?BREASTS:??no masses palpable bilaterally.?ABDOMEN:?bowel sounds normal, no ascites, no organomegaly, no mass.?RECTAL EXAM:?not examined.?MUSCULOSKELETAL:?extremities unremarkable, no clubbing, cyanosis or edema.?PERIPHERAL PULSES:?normal.?NEUROLOGIC:?alert and oriented, cranial nerves 2-12 grossly intact, deep tendon reflexes 2+ symmetrical, motor strength normal upper and lower extremities, sensory exam intact.?PSYCH:?alert, oriented, mood depressed.? Assessment: * Assessment: 1.?Aortic stenosis - Q25.3 ( Primary)???Notes :He will continue to see the tattoo designer and appropriate intervals. He would be a good medical candidate for cardiac surgery if necessary.Appointment to see his tattoo designer this month.???2.?Nonrheumatic aortic valve insufficiency - I35.1???Notes :He is currently be considered for TAVR.?3.?Thyroid nodule - E04.1???Notes :A significant thyroid nodule in the left lobe was an incidental finding on recent imaging for his heart.? He has been losing weight and thyroid function tests have been ordered as well as an ultrasound of the thyroid gland.???4.?Weight loss - R63.4???Notes :Has been losing weight steadily for unclear reasons.? Recently nodules in his lung have been found.? On evaluation will be conducted.???5.?Cardiomyopathy - I42.9???Notes :His cardiomyopathy is compensated and there was no sign of congestive heart failure today. He is seen regularly by the tattoo designer. He is doing much better on the entresto.???6.?Hodgkin's disease - C81.90???Notes :There is no sign of a new primary lymphoma.???7.?COPD (chronic obstructive pulmonary disease) - J44.9???Notes :He is not smoking and his COPD is mild. No change in his therapy was needed.???8.?Neuromuscular disease - G70.9???Notes :He continues to complain of pain because of the weakness in his neck and back muscles which is from the radiation therapy he received many years ago for Hodgkin's disease.???9.?Asthma - J45.909???Notes :He is breathing comfortably. No wheezes are heard on examination. No change in his regimen as needed. His COPDD is mild.???10.?Other and unspecified hyperlipidemia - E78.5???Notes :Her recent lipid profile shows good control of his lipids in no change in his regimen was needed.???11.?Former smoker - Z87.891???Notes :He is highly motivated not to smoke. 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 He would like to be put on diazepam twice a day indefinitely as she has read on the Internet that this is helpful thing for muscle spasm. I negotiated a prescription for cyclobenzaprine instead. We discussed the use of long-term control substances which are habit forming.???13.?Essential (primary) hypertension - I10???Notes :His blood pressure today is normal and well controlled and no change in his regimen was needed.??? Plan: * Treatment: 2.?Thyroid nodule?LAB: TSH (THYROID STIMULATING HORMONE) ?LAB: Prealbumin (Collection Date & Time - 07/21/2024 10:28 AM) ? Value Reference Range ?Prealbumin 24.0 20-40 - mg/d L ?LAB: Free T4 (Free Thyroxine) (Collection Date & Time - 07/21/2024 10:28 AM)* ? Value Reference Range ?Free T4 (Free Thyroxine) 1.15 0.71-1.85 - ng/dL ?Imaging: US thyroid3.?Weight loss?LAB: TSH (THYROID STIMULATING HORMONE) ?LAB: Prealbumin (Collection Date & Time - 07/21/2024 10:28 AM)* ? Value Reference Range ?Prealbumin 24.0 20-40 - mg/d L ?LAB: Free T4 (Free Thyroxine) (Collection Date & Time - 07/21/2024 10:28 AM)* ? Value Reference Range ?Free T4 (Free Thyroxine) 1.15 0.71-1.85 - ng/dL 4.?Others? Continue Wixela Inhub Aerosol Powder Breath Activated, 250-50 MCG/ACT, INHALE 1 PUFF BY MOUTH TWICEA DAY;?Start Amoxicillin-Pot Clavulanate Tablet, 875-125 MG, 1 tablet, Orally, every 12 hrs, 10 days, 20 Tablet, Refills 0.?? * Labs:? * ?Lab: URINE DIP STICK (C ollection Date & Time - 07/21/2024) ? Value Reference Range ?SG 1.020 1.005 - 1.025 * ?pH 8.0 5.0 - 9.0 * ?GREGORY Negative Negative - * ?NIT Negative Negative - * ?PRO 30 Negative - Trac e * ?GLU Negative Negative - * ?KET 5 Negative - * ?UBG 0.2 0.1 - 1.8 * ?DENISE Negative 0.2 - 1.3 * ?BLD Negative Negative - * Procedure Codes:?23754 URINE -NO MICRO * Preventive Medicine:? ??COPD Care Plan:?Patient Lifestyle Goals?Relieve symptoms and improve quality of life, Reduce number of ED and hospitalizations, Be able to be more active with friends and family.?Treatment Goals?Eat a nutritious diet and increase water consumption to 6-8 glasses a day, Exercise to help whole body, including lungs, Eat 4-5 small meals throughout the day.?Barriers?no barriers.?Self-Managment Goals?Eat a healthy diet, Get an air purifier for the rooms you are in the most.? * Follow Up:?1 Week, 7 to 10 d ays from now (Reason: Telehealth, To discuss the results of the TAVR conference and the patient's condition) * Images: * Sign off status: Completed true * Provider:?Arnaud Armando MD Date:?12/2024 Generated for Janny mesa/Ed/eTransmitting on:?08/06/2024 11:40 AM [...] Fall Risk Assessment:: No falls in the p year COVID-19 Screening Questions Have you had [...]
--- OUTSIDE RECORDS SUMMARY | 2024-08-06 11:41 | XMS_ITS | Patient Health Record ---
Author Organization [facility] Address [address] [place] [phone] Care Team Providers Care Restaurant Operations Manager Name Role Phone Arnaud Armando MD Primary Care Provider UnavailRico Malcolm Jr Unavailable ALLERGIES No Known Allergies REASON FOR REFERRAL No Information MEDICATIONS Medication SIG (Take, Route, Frequency, Duration) Notes Start Date End Date Status Baclofen 10 MG/20ML as directed Intrathecal Active MiraLax (colon prep) 17 GM/SCOOP mixed with Gatorade or Crystal Light Orally begin at 5:00 p.m. the day before the procedure for 1 day 12/28/2022 Active traZODone HCl 50 MG 1 tablet at bedtime as needed Orally Once a day for 30 day(s) Active Niacin 500 MG 1 tablet with food Orally Once a day for 30 day(s) Active Carvedilol 25 MG Oral for 90 A ctive Pentoxifylline ER 400 MG 1 tablet with m eals Orally Twice a day for 30 day(s) Active diazePAM 5 MG 1 tablet as needed Orally Once a day Active Symbicort 160-4.5 MCG/ACT 2 puffs Inhala tion Twice a day Active Rosuvastatin Calcium 40 MG Oral for 90 Active Wixela Inhub 250-50 MCG/ACT Inhalation for 90 Active Xarelto 20 MG TAKE 1 TABLET BY LATOYA TH EVERY DAY FOR 90 DAYS Oral for 90 Active Entresto 24-26 MG TAKE 1 TABLET BY LATOYA TH TWICE A DAY FOR 90 DAYS Oral for 90 Active IMMUNIZATIONS Vaccine Route Administration Date Status Comme nts Influenza Unknown 12/28/2022 Refused SOCIAL HISTORY Tobacco Use: Social History Observation Description Date Details (start date - stop date) Never Smoker NA - NA Sex Assigned At : Social History Observation Description Sex Assigned At Unknown Tobacco Use/Smoking Question Answer Notes Patient is a nonsmoker Alcohol Screen Question Answer Notes Did you have a drink containing alcohol in the p ast year? No Points 0 Interpretation Negative PROBLEMS Problem Type ICD Code Onset Dates Problem Status W/U Status Risk SNOMED Code Notes Problem Abnormal findings in stool (R19.5) Active confirmed 565964910 Problem halfway (current) use of anticoagulants (Z79.01) Active confirmed 971746789 PLAN OF TREATMENT Future Test Test Name Order Date COLONOSCOPY 12/28/2022 Insurance Providers Payer Name Payer Address Payer Phone Subscriber Number Group Number Insured Name Patient Relationship to Insured Coverage Start Date Coverage End Date [facility] [address] [facility] [place] [id number] [phone] [id number] RENNY ANDERSON Self - patient is the insured MEDICAL (GENERAL) HISTORY Medical History History ICD Code Hyperlipidemia Hodgkin's disease status pos t colectomy and radiation with radiation fibrosis Nonischemic cardiomyopathy Aortic stenosis BPH Anxiety Left bundle-branch block Asthma/COPD Surgical History Surgery Date(Month/Year) Splenectomy 1985 Pacemaker/defibrillator 2019
--- OUTSIDE RECORDS SUMMARY | 2024-08-06 11:41 | XMS_ITS | Clinical Summary ---
Author Organization [facility] Address [address] [place] [address] Phone Care Team Providers Care Real Estate Professor Name Role Phone Unavailable Primary Care Provider Unavailabl e Encounters Date Type Department Care Team Description 07/31/2024 1:29 PM EST Hospital Encounter [facility] PET Scan [address] [place] [address] Other nonspecific abnormal finding of lung field from Last 3 Months Social History Tobacco Use Types Packs/Day Years Used Date Smoking Tobacco: Never Assessed Sex and Gender Information Value Date Recorded Sex Assigned at Not on file Gender Identity Not on file Sexual Orientation Not on file Plan of Treatment Health Maintenance Due Date Last Done Comments Zoster Vaccines (1 of 2) 10/10/2005 RSV Immunization Patients 60+ Years Old (1 - Risk 60-74 years 1-dose series) 2015 Pneumococcal Vaccine: 65+ Years (1 of 1 - PCV) 10/10/2020 COVID-19 Vaccine ( - season) 2024 11/27/2020, 10/29/2020 Influenza Vaccine (#1) 2024 , 05/02/2018, 04/24/2017, Additional history exists Abdominal Aortic Aneurysm (AAA) Screen 07/30/2024 Cholesterol Screening (Lipid Panel) 07/30/2024 Colorectal Cancer Screening: Colonoscopy 07/30/2024 Depression Screening 07/30/2024 Falls Risk Assessment 07/30/2024 Hepatitis C Screening 07/30/2024 Medicare Annual Wellness Visit 07/30/2024 Social Influencers of Health Screening 07/30/2024 Hypertension/CHF/CAD Annual BMP Blood Test 07/31/2024 DTaP,Tdap,and Td Vaccines (2 - Td or Tdap) 03/23/2028 03/23/2018 HIB Vaccines Aged Out No longer eligi ble based on patient's age to complete this topic HPV Vaccines Aged Out No longer eligi ble based on patient's age to complete this topic Hepatitis A Vaccines Aged Out No long er eligible based on patient's age to complete this topic Hepatitis B Vaccines Aged Out No long er eligible based on patient's age to complete this topic IPV Vaccines Aged Out No longer eligi ble based on patient's age to complete this topic MMR Vaccines Aged Out No longer eligi ble based on patient's age to complete this topic Meningococcal ACWY Vaccine Aged Out N o longer eligible based on patient's age to complete this topic RSV Immunization Patients Under 20 months Aged Out No longer eligible based on patient's age to complete this topic Varicella Vaccines Aged Out No longer eligible based on patient's age to complete this topic Procedures Procedure Name Priority Date/Time Associated Diagnosis Comments PET CT SKULL TO MID THIGH INITIAL Routine 07/31/2024 3:40 PM EST Other nonspecific abnormal finding of lung field from Last 3 Months Results * PET CT Skull to Mid [...] Signed Date: 08/04/2024 05:12 ET Workstation ID: [id number] Transcribed By: Self Edit Transcribed Date: 08/04/2024 [...] CANCER SUSPECTED. Outside CT of the chest [id number] mm solid nodule in the left lower [...] Signed Date: 08/04/2024 05:12 ET Workstation ID: [id number] Transcribed By: Self Edit Transcribed Date: 08/04/2024 03:27 ET Jose Corey MD IMG NM PROCEDURES from Last 3 Months
== END 2024-08-06 11:02 | disposition home or self-care (01) ==
PROVIDERS: PCP Internal Medicine Medical Oncology; Visit Provider Internal Medicine Pulmonary Disease
DX: J44.9 Chronic obstructive pulmonary disease, unspecified (principal); R91.8 Other nonspecific abnormal finding of lung field
CPT/HCPCS: 99214

== ENCOUNTER → 2024-08-06 10:31 | Outpatient (BNVA) | payer MEDICARE, SELFPAY | PROVIDERS: PCP Internal Medicine Medical Oncology; Visit Provider Internal Medicine Pulmonary Disease | DX: R91.8 Other nonspecific abnormal finding of lung field (principal); J44.9 Chronic obstructive pulmonary disease, unspecified; Z87.891 Personal history of nicotine dependence | CPT/HCPCS: 99212 ==

== ENCOUNTER 2024-10-14 10:09 | Outpatient (REF) | payer MEDICARE, SELFPAY ==
--- NOTE | ~2024-10-14 | CT_ITS ---
CLINICAL HISTORY: R91.8 - Other nonspecific abnormal finding of lung field CT chest without contrast Comparison: CT/PT - CT OUTSIDE IMAGES - 07/31/24 14:44 EST Findings: The heart is normal size. Calcification of the coronary vasculature. The visualized thyroid and mediastinum are unremarkable. Decreased left lower lobe reticulonodular density. No change in moderate right basilar predominant reticulonodular pulmonary opacity. Multifocal bilateral ground-glass and solid pulmonary nodules are present as before. This includes an 8 mm ground-glass nodule within the right upper lobe anteriorly ( image 52), which is unchanged. Cholelithiasis. The bones are intact. IMPRESSION: 1. Decreased left lower lobe reticulonodular density. Otherwise, no change in above described pulmonary opacities. Follow-up chest CT in 6 months is recommended for further assessment. 2. Coronary artery disease. 3. Cholelithiasis. This document has been electronically signed by: Prakash Linn MD on 10/15/2024 14:28:47
--- OUTSIDE RECORDS SUMMARY | 2024-10-14 11:51 | XMS_ITS ---
Author Organization Arnaud Armando III, MD Address [address] [place] [place] [address] Care Team Providers Care Topline Beading Machine Tender Name Role Phone Arnaud Armando Primary Care [...] Date Provider Diagnosis Arnaud Armando III, MD [address] [place] [address] [place] [address] 08/13/2024 Arnaud Armando Aortic stenosis Q25. 3 [...] check on the patient's condition Provider Name:Arnaud Armando, 11/20/2024 09:30:00 AM, [address] [place] [address] [address], [place], [address], Provider Name:Arnaud Armando, 07/22/2025 09:30:00 AM, [address] [place] [address] [address], [place], [address], Progress Notes * Nahed ANDERSONOB:1955 ([age] yo M)Acc No.[id number]:08/13/2024 Patient:?Nicholas ANDERSON Provider:?Arnaud Armando MD :1955???Age:68 Y???Sex:Male Mando e:08/13/2024 Address:[address] [place] [id number] Subjective: * Chief Complaints: * ???Aortic stenosis and insuf ficiencyCardiomyopathyAsthmaCOPDRadiation fibrosisBenign prostatic hypertrophyThyroid nodule * HPI: ???:?Telehealth?Location of provider rendering services:?{...} [address] [facility] [address] ?Location of patient:?address listed in demographics for today's visit ?Patient identification confirmed using:?Name, ?Telehealth method:?Telephone only. Patient not visible to care provider. ?Consent:?Patient verbally consented to treatment, Patient verbally consented to billing insurance company, Patient informed of any privacy concerns related to method of visit ?Total time spent with patient (mins)?15 ?The patient, a 68-year-old male, reported for a [...] cleared to proceed with the TAVR. * ROS:?General/Constitutional:?pain?Neck and shoulders.?Chills?denies.?Fatigue?admits.?Fever?denies.?ENT:?Decreased hearing?denies.?Respiratory:?Cough?denies.?Cardiovascular:?Chest pain with exertion?denies.?Dyspnea on exertion?denies.?Shortness of [...] Tobacco non-user?Ex-cigarette smoker ???He was born in [place]. He is and has 3 children. He [...] 70, Wt:163, BMI: 23.39, Ht-cm: 177.8, Wt-k.94. Assessment: * Assessment: 1.?Aortic stenosis - Q25.3 ( Primary)???Notes :We are awaiting the day of the TAVR now that the PET CT scan is negative for malignancy.? He continues to have mild shortness of breath with exertion.? Recent studies have shown significant aortic stenosis and insufficiency.???2.?Hodgkin's disease - C81.90???Notes :There is no sign of a new primary lymphoma.???3.?Asthma - J45.909???Notes :He is breathing comfortably. No wheezes are heard on examination. No change in his regimen as needed. His COPDD is mild.???4.?COPD (chronic obstructive pulmonary disease) - J44.9???Notes :He is not smoking and his COPD is mild. No change in his therapy was needed.???5.?Neuromuscular disease - G70.9???Notes :He continues to complain of pain because of the weakness in his neck and back muscles which is from the radiation therapy he received many years ago for Hodgkin's disease.???6.?Former smoker - Z87.891???Notes :He is highly motivated not to smoke. He has a plan to prevent relapse an time of stress and illness.??? Plan: * Treatment: 2.?Others? Continue Wixela Inhub Aerosol Powder Breath Activated, 250-50 MCG/ACT, INHALE 1 PUFF BY MOUTH TWICE A DAY.?? * Procedure Codes:? * Preventive Medicine:? ??Counseling:?Smoking/Tobacco Use?Patient counseled on the dangers of tobacco use and urged to quit.?08/13/2024 ??COPD Care Plan:?Patient Lifestyle Goals?Relieve symptoms and improve quality of life, Be able to be more active with friends and family.?Treatment Goals?Exercise to help whole body, including lungs, Eat a nutritious diet and increase water consumption to 6-8 glasses a day.?Barriers?no barriers.?Self-Managment Goals?Get an air purifier for the rooms you are in the most, Eat a healthy diet.? * Follow Up:?About a month fro m now (Reason: To check on the patient's condition) * Images: * Sign off status: Completed true * Provider:?Arnaud Armando MD Date:?07/17 Generated for Janny mesa/Ed/Edieitting on:?10/14/2024 11:51 AM EDT History and Physical Notes * HPI (History of Present Illness) Category Sub-Category Detail Notes Telehealth Location of [facility] rendering services:: {...} [address] [place] [address] Location of patient:: address listed in demographics [...]
--- OUTSIDE RECORDS SUMMARY | 2024-10-14 11:51 | XMS_ITS | Clinical Summary ---
Author Organization [facility] Address [address] [place] [address] Phone Care Team Providers Care Radio Mechanic Name Role Phone Unavailable Primary Care Provider Unavailabl e Encounters Date Type Department Care Team Description 07/31/2024 1:29 PM EST - 07/31/2024 11:59 PM EST Hospital Encounter [facility] PET Scan [address] [place] [address] Other nonspecific abnormal finding of lung field Discharge Disposition: Home or Self Care from Last 3 Months Social History Tobacco Use Types Packs/Day Years Used Date Smoking Tobacco: Never Assessed Sex and Gender Information Value Date Recorded Sex Assigned at Not on file Legal Sex Male 11:51 PM EST Gender Identity Not on file Sexual Orientation Not on file Plan of Treatment Health Maintenance Due Date Last Done Comments Zoster Vaccines (1 of 2) 10/10/1974 Pneumococcal Vaccine: 50+ Years (2 of 2 - PCV) 06/20/2014 06/20/2013 RSV Immunization Patients 60+ Years Old (1 - Risk 60-74 years 1-dose series) 2015 COVID-19 Vaccine (3 - Moderna risk series) 12/25/2020 11/27/2020, 10/29/2020 Influenza Vaccine (#1) 2024 , [...] patient's age to complete this topic Meningococcal B Vacine Aged Out No lo nger eligible based on patient's age to complete [...] Signed Date: 08/04/2024 05:12 ET Workstation ID: [id number] Transcribed By: Self Edit Transcribed Date: 08/04/2024 [...] CANCER SUSPECTED. Outside CT of the chest [id number] mm solid nodule in the left lower [...] Signed Date: 08/04/2024 05:12 ET Workstation ID: [id number] Transcribed By: Self Edit Transcribed Date: 08/04/2024 03:27 ET Jose Corey MD IMG [place] PROCEDURES Final Result from Last 3 Months Insurance [employer]
--- OUTSIDE RECORDS SUMMARY | 2024-10-14 11:51 | XMS_ITS ---
Author Organization Arnaud Armando III, MD Address [address] [place] [address] Care Team Providers Care Outpatient Coordinator Name Role Phone Arnaud Armando Primary Care Provider REASON FOR VISIT HCC Risk Codes Social History Sex Assigned At : Social History Observation Description Sex Assigned At Male Encounters Encounter Location Date Provider Diagnosis Arnaud Armando III, MD [address] [place] [address] [place] [address] 09/29/2024 Arnaud Armando Plan Of Treatment Next Appt Details Provider Name:Arnaud Armando, 11/20/2024 09:30:00 AM, [address] [place] [address] [place], [address], Provider Name:Arnaud Armando, 07/22/2025 09:30:00 AM, [address] [place] [address] DR, [place] [address], [place], [address], Progress Notes * Nahed ANDERSONOB:1955 ([age] yo M)Acc No.[id number]:09/29/2024 Patient:?Nicholas ANDERSON :1955???Age:68 Y???Sex:Male Address:[address] [place] [address] * true * Date:? Generated for Janny mesa/Ed/eTjaymiesmitting on:?10/14/2024 11:51 AM EDT
--- OUTSIDE RECORDS SUMMARY | 2024-10-14 11:51 | XMS_ITS ---
Author Organization Arnaud Armando III, MD Address [address] [place] [address] Care Team Providers Care Medical Referral Coordinator Name Role Phone Arnaud Armando Primary Care Provider [phone] Allergies Allergen (clinical drug ingredient) Drug/Non Drug Allergy documented on EMR Reaction Allergy Type Onset Date Status No Known Drug Allergy Unknown Drug Allergy Active REASON FOR VISIT TAVR Scheduled September 30, 2024 at [facility], Aortic stenosis, Hyperlipidemia, Asthma, COPD, Posterior [...] has it been since you last smoked? Renea ter than 10 years Additional Findings: Tobacco non-user Ex-cigaret te smoker Vital Signs Temperature 99.0 degrees Fahrenheit 09/19/19 25 Blood pressure systolic 132 mm Hg 09/19/19 25 Blood pressure diastolic 64 mm Hg 025 Heart Rate 80 /min 09/18/2024 Height 70 in 09/18/2024 Weight 167 lbs 09/18/2024 BMI 23.96 kg/m2 09/18/2024 Encounters Encounter Location Date Provider Diagnosis Arnaud Armando III, MD [address] [place] [address] [place] [address] 09/18/2024 Arnaud Armando Aortic stenosis Q25. 3 [...] He will proceed to the TAVR at [facility] September 30, 2024. I found no [...] today. He is seen regularly by the web application dev specialist. He is doing much better on [...] Up: 8 weeks, Reason: OV Provider Name:Arnaud Armando, 11/20/2024 09:30:00 AM, [address] [place] [address] [address], [place], [address], Provider Name:Arnaud Armando, 07/22/2025 09:30:00 AM, [address] [place] [address] [address], [place], [address], Progress Notes * Nahed ANDERSONOB:1955 ([age] yo M)Acc No.[id number]:09/18/2024 Progress Notes Patient:?Nicholas ANDERSON Provider:?Arnaud Armando MD :1955???Age:68 Y???Sex:Male Mando e:09/18/2024 Address:[address] [place] [address] [id number] Subjective: * Chief Complaints: * ???[facility] stenosisHyperlipidemiaAsthmaCOPDPosterior thoracic muscle weaknessHypertensionBenign prostatic hypertrophy * HPI: ???COVID-19 Screening:? He is scheduled to have a TAVR for critical aortic stenosis September 30, 2024 at [facility] to be done by Dr. Boateng.? He was comfortable breathing room air today.? He is short of breath with exertion which limits his quality of life.? He denies any recent chest pain.? He continues to grieve the loss of his son recently from a brain tumor.? He has been compliant with all of his medications.? He understands the procedure and wishes to proceed.? I found no contraindication to the cardiac procedure today.? He is given for medical clearance. ?Questions?Have you had any new onset fever, chills, cough, congestion, sore throat, shortness of breath, muscle aches??No * ROS:?General/Constitutional:?pain?Neck muscles and upper thoracic spine.?Chills?denies.?Fatigue?admits.?Fever?denies.?ENT:?Decreased hearing?denies.?Respiratory:?Cough?denies.?Cardiovascular:?Chest pain with exertion?denies.?Dyspnea on exertion?with mild activity.?Shortness of breath?with exertion.?Gastrointestinal:?Constipation?occasional.?Decreased appetite?denies.?Diarrhea?denies.?Heartburn?denies.?Nausea?denies.?Rectal bleeding?denies.?Vomiting?denies.?Hematology:?bruising?denies.?petechiae?denies.?Swollen glands?none have been noted.?Genitourinary:?Frequent urination?denies.?Musculoskeletal:?Muscle aches?denies.?Painful joints?denies.?Sciatica?denies.?Weakness?Pelvic muscles and upper back.?Skin:?Itching?denies.?Rash?denies.?Skin lesion(s)?denies.?Neurologic:?Difficulty speaking?denies.?Dizziness?denies.?Headache?denies.?Low back pain?denies.?Psychiatric:?Depressed mood?which is moderate.? [...] due to Angiochleoblastoma. * Social History:?Tobacco Use:?Tobacco Control (Standard)?Tobacco use:?Former smoker ?How long has it been since you last smoked??Greater than 10 years ?Additional Findings: Tobacco non-user?Ex-cigarette smoker ???He was born in [place]. He is and has 3 children. He [...] All ergyno[Allergies Verified] Objective: * Vitals:?Ht: 70, Wt:167, BMI: 23.96, BP:132/64, HR:80, Temp:99.0, Ht-cm: 177.8, Wt-k.75. * ???Past Orders: ???Lab:Thyroid Stimulating H elba (Order Date - 07/21/2024) (Collection Date & Time - 07/21/2024 10:28 AM) ? Value Reference Range ?Thyroid Stimulating Hormone 2.68 0.32-4.0 - uIU/mL Lab:URINE DIP STICK * Collection Date 07/21/2024 [...] Date & Time - 07/21/2024 10:28 AM)?ValueReference Range?Dtojhetvfe62.020-40 - mg/dL ???Lab:Free T4 (Free Thyroxine) (Order Date - 07/21/2024) (Collection Date & Time - 07/21/2024 10:28 AM)?ValueReference Range?Free T4 (Free Thyroxine)1.150.71-1.85 - ng/dL ???Imaging:US thyroid (Order Date - 07/21/2024) (Performed Date - 08/22/2024) * Examination: ???General Examination: ?GENERAL APPEARANCE:?pleasant, well nourished, well developed, in no acute distress, calm and relaxed, man.?HEAD:?atraumatic, normocephalic.?EYES:?eomi, perrla, anicteric, conjugate.?EARS:?normal.?NOSE:?septum intact.?ORAL CAVITY:?normal, unremarkable.?NECK/THYROID:?no jugular venous distention, no carotid bruit, thyroid normal.?LYMPH NODES:?no enlarged lymph nodes,spleen normal.?SKIN:?no suspicious lesions, anicteric.?HEART:?no clicks, gallops, 1/6 systolic?murmur, or rubs, regular rhythm, S1, S2 normal, no s3, or vascular bruits.?LUNGS:?clear to auscultation .?BREASTS:??no masses palpable bilaterally.?ABDOMEN:?bowel sounds normal, no ascites, no organomegaly, no mass.?RECTAL EXAM:?not examined.?MUSCULOSKELETAL:?extremities unremarkable, no clubbing, cyanosis or edema, Rectangular area of muscle atrophy upper back and neck.?PERIPHERAL PULSES:?normal.?NEUROLOGIC:?alert and oriented, cranial nerves 2-12 grossly intact, deep tendon reflexes 2+ symmetrical, motor strength normal upper and lower extremities, sensory exam intact.?PSYCH:?alert, oriented.? Assessment: * Assessment: 1.?Aortic stenosis - Q25.3 ( Primary)???Notes :He will proceed to the TAVR at [facility] September 30, 2024.? I found no contraindication to the procedure today.???2.?Hodgkin's disease - C81.90???Notes :There is no sign of a new primary lymphoma.???3.?COPD (chronic obstructive pulmonary disease) - J44.9???Notes :He is not smoking and his COPD is mild. No change in his therapy was needed.???4.?Cardiomyopathy - I42.9???Notes :His cardiomyopathy is compensated and there was no sign of congestive heart failure today. He is seen regularly by the web application dev specialist. He is doing much better on the entresto.???5.?Asthma - J45.909???Notes :He is breathing comfortably. No wheezes are heard on examination. No change in his regimen as needed. 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 He has a plan to prevent relapse an time of stress and illness.??? Plan: * Treatment: 2.?Others? Continue Wixela Inhub Aerosol Powder Breath Activated, 250-50 MCG/ACT, INHALE 1 PUFF BY MOUTH TWICE A DAY.?? * Procedure Codes:? * Preventive Medicine:? ??Counseling:?Smoking/Tobacco Use?Patient counseled on the dangers of tobacco use and urged to quit.?09/17/2024 * Follow Up:?8 weeks (Reason: OV) * Images: * Sign off status: Completed true * Provider:?Arnaud Armando MD Date:?12/2024 Generated for Janny mesa/Ed/Edieitting on:?10/14/2024 11:51 AM [...]
--- OUTSIDE RECORDS SUMMARY | 2024-10-14 11:52 | XMS_ITS | Clinical Summary ---
Author Organization [facility] [employer] [facility] Send [employer] Address [address] [place] [address] Care Team Providers Care Line Mechanic Name Role Phone No, Pcp ACQUISITIONS EDITOR Primary Care Provider Unavailabl e Allergies No known active allergies Medications SYMBICORT 160-4.5 mcg/actuation inhaler 03/09/2018 Active carvedilol (COREG) 25 MG tablet 03/20/2018 Active furosemide (LASIX) 20 MG tablet 03/09/2018 Active rosuvastatin (CRESTOR) 10 MG tablet 02/28/2018 Active Immunizations Name Administration Dates Next Due Boostrix (Tdap) Prefilled Syringe 03/23/2018 Social History Tobacco Use Types Packs/Day Years Used Date Smoking Tobacco: Former Smokeless Tobacco: Never Sex and Gender Information Value Date Recorded Sex Assigned at Not on file Legal Sex Male 11:28 AM EDT Gender Identity Not on file Sexual Orientation Not on file Last Filed Vital Signs Vital Sign Reading Time Taken Comments Blood Pressure 128/68 03/23/2018 11:39 AM EDT Pulse 90 03/23/2018 11:39 AM EDT Temperature 36.2 ??C (97.2 ??F) 03/23/2018 11:39 AM E DT Respiratory Rate 12 03/23/2018 11:39 AM EDT Oxygen Saturation 96% 03/23/2018 11:39 AM EDT Inhaled Oxygen Concentration - - Weight 81.2 kg (179 lb) 03/23/2018 11:39 AM EDT Height 177.8 cm (5' 10 ) 03/23/2018 11:39 AM EDT Body Mass Index 25.68 03/23/2018 11:39 AM EDT Plan of Treatment Health Maintenance Due Date Last Done Comments Colorectal Cancer: COLONOSCO PY Screening every 10 yrs (or Modifier) 1955 Depression: Screening Annual ly using PHQ-2/9 in Adults 18 yrs or above (or HM Modifier)([facility]) 10/10/1973 Hepatitis C Virus Infection in Adolescents and Adults: Screening (or Modifier) ([facility]) 10/10/1973 SDOH Screening Reminder: Juliana ually for all adults ([facility]) 10/10/1973 Tobacco Smoking Cessation: i n Adults excluding Women: Behavioral and Pharmacotherapy Interventions ([facility]) 10/10/1973 Lipid Screening: Every 5 yrs for Men aged 35+ (or HM Modifier) ([facility]) 1991 Colorectal Cancer Screening 45 -75 Yrs (or HM Modifier) 10/10/2000 Colorectal Cancer: FLEXIBLE SIGMOIDOSCOPY Screening every 5 yrs 10/10/2000 Colorectal Cancer: Fecal Imm unochemical Test (FIT) Annually [facility] 10/10/2000 Colorectal Cancer: High-sens itivity gFOBT Screening Annually [facility] 10/10/2000 Colorectal Cancer: Stool Col oguard Screening every 3 yrs 10/10/2000 Colorectal Cancer:CT Colonog grant Screening every 5 yrs 10/10/2000 Lung Cancer: Screening Annua lly in adults aged 50 to 80 years (or HM Modifiers)([facility]) 10/10/2005 Pneumococcal Vaccination Scr eening: Patients 50+ yrs of age ([facility]) (1 of 1 - PCV) 10/10/2005 Zoster/Shingles Vaccine Seri es Screening: Adults aged 18+ yrs (or HM Modifiers)([facility]) (1 of 2) 10/10/2005 Flu Vaccination: Ages 65+: Y early High Dose Recommended (or Modifier)([facility]) 02/14/2024 COVID-19 Vaccine Screening: Initial Series and Booster Status ([facility]) ( - 2023- season) 2024 DTaP/Tdap/Td Vaccines ([facility]) (2 - Td or Tdap) 03/23/2018 RSV Vaccines (1 - 1-dose 75+ series) 10/10/2030 Medical Devices Not on file Insurance [facility] Care Teams Line Mechanic Relationship Specialty Start Date End Date No, Pcp, ACQUISITIONS EDITOR N/A Do not use PCP - General 03/23/18
--- OUTSIDE RECORDS SUMMARY | 2024-10-14 11:52 | XMS_ITS | Patient Health Record ---
Author Organization [facility] Address [address] [place] [address] Care Team Providers Care Set Up Mechanic Coil Winding Machines Name Role Phone Arnaud Armando MD Primary Care Provider UnavailRico Malcolm Jr Unavailable [phone] Allergies No Known Allergies Reason For Referral No Information Medications Medication SIG (Take, Route, Frequency, Duration) [...] FOR 90 DAYS Oral for 90 Active Immunizations Vaccine Route Administration Date Status Comme nts Influenza Unknown 12/28/2022 Refused Social History Tobacco Use: Social History Observation Description Date Details (start date - stop date) Never Smoker NA - NA Tobacco Use/Smoking Question Answer Notes Patient is a nonsmoker Alcohol Screen Question Answer Notes Did you have a drink containing alcohol in the p ast year? 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) use of anticoagulants (Z79.01) Active confirmed Problem 468585455 Abnormal finding s in stool (R19.5) Active confirmed Plan Of Treatment Future Test Test Name Order Date COLONOSCOPY 12/28/2022 Insurance Providers Payer Name Payer Address Payer Phone Subscriber Number Group Number Insured Name Patient Relationship to Insured Coverage Start Date Coverage End Date [facility] [address] [place] [phone] [id number] RENNY ANDERSON Self - patient is the insured Medical (General) History Medical History History ICD Code Hyperlipidemia Hodgkin's disease status pos t colectomy and radiation with radiation fibrosis Nonischemic cardiomyopathy Aortic stenosis BPH Anxiety Left bundle-branch block Asthma/COPD Surgical History Surgery Date(Month/Year) Splenectomy 1985 Pacemaker/defibrillator 2019
== END 2024-10-14 10:10 | disposition home or self-care (01) ==
LOC: HO.CT 10:09
PROVIDERS: PCP Internal Medicine Medical Oncology; Visit Provider Internal Medicine Pulmonary Disease
DX: R91.8 Other nonspecific abnormal finding of lung field (principal)
CPT/HCPCS: 71250

== ENCOUNTER → 2024-10-14 10:11 | Outpatient (BNV) | payer MEDICARE, SELFPAY | PROVIDERS: PCP Internal Medicine Medical Oncology; Visit Provider Radiology Diagnostic Radiology | DX: R91.8 Other nonspecific abnormal finding of lung field (principal) | CPT/HCPCS: 71250 ==

== ENCOUNTER 2024-11-05 14:33 | Outpatient (AMB) | payer MEDICARE, SELFPAY ==
[2024-11-05 14:37] VITALS: BP 128/70; PULSE 94; O2SAT 93; BMI 23.7
--- NOTE | 2024-11-05 14:37 | MHC.OFFVIS ---
Vital Signs 11/05/24 14:37 Height 5 ft 10 in Weight 165 lb BMI 23.7 BP 128/70 Blood Pressure Location Rt brachial Position Sitting Pulse 94 Pulse Source Doppler Pulse Oximetry (%) 93 Oxygen Delivery Method Room Air Intake Visit Reasons: pulmonary nodule Allergies No Known Allergies Allergy (Verified 11/05/24 14:43) HPI HPI pulmonary nodule: Details: 68-year-old gentleman, remote approximately 15 pack-year smoker, quit over 30 years prior, with history of Hodgkin's lymphoma status post radiation 49 years prior who is being evaluated for TAVR at [facility] and as a part of evaluation had CT chest that demonstrated multiple pulmonary nodules. Patient is also complain of unintended weight loss of approximately 10 lb over the last 3 months. He has been using Wixela for underlying reactive airway disease. 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 Patient's PET-CT did not demonstrate significant FDG uptake in his parenchymal or mediastinal nodules in his follow-up CT chest in 3 months demonstrate decreasing pulmonary densities. Patient also had TAVR on September 30 with improvement in his respiratory symptoms. He denies recent exacerbations. [facility] Medical History (Updated 07/22/24 @ 14:18 by Jose Corey MD) Afib Presence of combination internal cardiac defibrillator (ICD) and pacemaker Asthma with COPD Left bundle branch block BPH (benign prostatic hyperplasia) Aortic stenosis Nonischemic cardiomyopathy Hodgkins disease Hyperlipidemia Surgical History Hx of splenectomy Social History Patient Tobacco Use Status: Former Tobacco user Tobacco use type: Cigarette Years Smoked: 20 Review of Systems Const Denies daytime sleepiness, Denies excessive sweating, Denies fatigue, Denies fever(s), Denies lethargy, Denies malaise, Denies night sweats, Denies snoring and Denies weight loss Eyes Denies blurry vision and Denies itchy eyes ENT Denies nasal congestion, Denies post nasal drip, Denies sinus pain, Denies sinus pressure and Denies other ( Thrush) Card Denies chest pain, Denies pedal edema, Denies dyspnea, Denies orthopnea and Denies paroxysmal nocturnal dyspnea Resp Denies cough, Denies hemoptysis, Denies excessive phlegm production, Denies dyspnea, Denies snoring and Denies wheezing GI Denies abdominal pain and Denies heartburn Musc Denies myalgias, Denies arthralgias and Denies joint swelling Skin/Breast Denies rash Neuro Denies memory loss and Denies seizure-like activity Psych Denies abnormal sleep pattern, Denies anxiety and Denies memory loss Endo Denies excessive sweating, Denies fatigue and Denies heat intolerance Chon/Lymph Denies easy bruising Aller/Immun Denies itchy eyes, Denies seasonal rhinorrhea and Denies wheezing Physical Exam Vital Signs: Last Vital Signs Pulse 94 11/05/24 14:37 BP 128/70 11/05/24 14:37 Pulse Ox 93 11/05/24 14:37 Oxygen Delivery Method Room Air 11/05/24 14:37 BMI result Body Mass Index 23.7 Const General: no acute distress and alert Nutritional Appearance: not obese Orientation/consciousness: Other orientation findings ( oriented) HEENT Head: Yes atraumatic Eyes General: appearance normal, both eyes and all related structures Sclerae: sclerae normal EOM: EOMs intact bilaterally Neck Neck: Yes supple Lymphatic: no lymphadenopathy noted Resp Effort & Inspection: normal respiratory effort and no use of accessory muscles Auscultation: clear to auscultation bilaterally Cardio Rate: regular rate Rhythm: regular rhythm Heart sounds: no gallops, no murmurs and no rubs Skin General skin exam: other ( warm) Extrem General: No clubbing, No cyanosis and No edema Assessment & Plan Assessment & Plan (1) Pulmonary nodules: Code(s): R91.8 - Other nonspecific abnormal finding of lung field Category: Medical Plan: Results of 3 months follow-up CT chest reviewed, improved pulmonary densities, will repeat CT chest in 6 months. (2) Asthma with COPD: Code(s): J44.9 - Chronic obstructive pulmonary disease, unspecified Category: Medical Plan: Well controlled on Wixela and albuterol MDI. Continue current regimen. Orders: Orders CT chest wo IV con 04/26/25 R91.8 - Other nonspecific abnormal finding of lung field Coding Level of Care Code Est Pt Level 4 (12212) Diagnoses Pulmonary nodules R91.8 Asthma with COPD J44.9
--- OUTSIDE RECORDS SUMMARY | 2024-11-05 17:26 | XMS_ITS | Patient Health Record ---
Author Organization [facility] Address [address] [place] [address] Care Team Providers Care Cyanide Case Hardener Name Role Phone Arnaud Armando MD Primary Care Provider UnavailRico Malcolm Jr Unavailable Allergies No Known Allergies Reason For Referral [...] Problem Status W/U Status Risk Notes Problem [id number] half-way (curre nt) use of anticoagulants (Z79.01) Active confirmed Problem [id number] Abnormal finding s in stool (R19.5) Active confirmed Plan Of Treatment Future Test Test Name Order Date COLONOSCOPY 12/28/2022 Insurance Providers Payer Name Payer Address Payer Phone Subscriber Number Group Number Insured Name Patient Relationship to Insured Coverage Start Date Coverage End Date [facility] [address] [place] [phone] [id number] RENNY ANDERSON Self - patient is the insured Medical (General) History Medical History History ICD Code Hyperlipidemia Hodgkin's disease status pos t colectomy and radiation with radiation fibrosis Nonischemic cardiomyopathy Aortic stenosis BPH Anxiety Left bundle-branch block Asthma/COPD Surgical History Surgery Date(Month/Year) Splenectomy 1985 Pacemaker/defibrillator 2019
--- OUTSIDE RECORDS SUMMARY | 2024-11-05 17:26 | XMS_ITS ---
Author Organization Arnaud Armando III, MD Address [address] [place] [address] Care Team Providers Care Planner Intern Name Role Phone Arnaud Armando Primary Care [...] Date Provider Diagnosis Arnaud Armando III, MD [address] [place] [address] [place] [address] 08/13/2024 Arnaud Armando Aortic stenosis Q25. 3 [...] condition Provider Name:Arnaud Armando, 11/20/2024 09:30:00 AM, [address] [place] [address] [address], [place], [address], Provider Name:Arnaud Armando, 07/22/2025 09:30:00 AM, [address] [place] [address] [address], [place], [address], Progress Notes * Nhaed ANDERSONOB:1955 ([age] yo M)Acc No.[id number]:08/13/2024 Patient:?Nicholas ANDERSON Provider:?Arnaud Armando MD :1955???Age:68 Y???Sex:Male Mando e:08/13/2024 Address:[address] [place] [id number] Subjective: * Chief Complaints: * ???Aortic stenosis and insuf ficiencyCardiomyopathyAsthmaCOPDRadiation fibrosisBenign prostatic hypertrophyThyroid nodule * HPI: ???:?Telehealth?Location of provider rendering services:?{...} [address] [facility] [address] ?Location of patient:?address listed in demographics for [...] Tobacco non-user?Ex-cigarette smoker ???He was born in [place]. He is and has 3 children. He [...] Provider:?Arnaud Armando MD Date:?07/17 Generated for Janny mesa/Ed/Stepan on:?11/05/2024 05:26 PM EDT History and Physical Notes * HPI (History of Present Illness) Category Sub-Category Detail Notes Telehealth Location of [facility] rendering services:: {...} [address] [place] [address] Location of patient:: address listed in demographics [...]
--- OUTSIDE RECORDS SUMMARY | 2024-11-05 17:26 | XMS_ITS ---
Author Organization Arnaud Armando III, MD Address [address] [place] [address] Care Team Providers Care Balloon Tester Name Role Phone Arnaud Armando Primary Care Provider [phone] Allergies Allergen (clinical drug ingredient) Drug/Non Drug Allergy documented on EMR Reaction Allergy Type Onset Date Status No Known Drug Allergy Unknown Drug Allergy Active REASON FOR VISIT TAVR Scheduled September 30, 2024 at [facility], Aortic stenosis, Hyperlipidemia, Asthma, COPD, Posterior [...] Date Provider Diagnosis Arnaud Armando III, MD [address] [place] [address] [place] [address] 09/18/2024 Arnaud Armando Aortic stenosis Q25. 3 [...] He will proceed to the TAVR at [facility] September 30, 2024. I found no [...] today. He is seen regularly by the obstetrics specialist. He is doing much better on [...] OV Provider Name:Arnaud Armando, 11/20/2024 09:30:00 AM, [address] [place] [address] [address], [place], [address], Provider Name:Arnaud Armando, 07/22/2025 09:30:00 AM, [address] [place] [address] [address], [place], [phone], Progress Notes * Nahed ANDERSONOB:1955 ([age] yo M)Acc No.[id number]:09/18/2024 Progress Notes Patient:?Nicholas ANDERSON Provider:?Arnaud Armando MD :1955???Age:68 Y???Sex:Male Mando e:09/18/2024 Address:[address] [place] [address] [phone] Subjective: * Chief Complaints: * ???[facility] stenosisHyperlipidemiaAsthmaCOPDPosterior thoracic muscle weaknessHypertensionBenign prostatic hypertrophy * HPI: ???COVID-19 Screening:? He is scheduled to have a TAVR for critical aortic stenosis September 30, 2024 at [facility] to be done by Dr. Boateng.? [...] Tobacco non-user?Ex-cigarette smoker ???He was born in [place]. He is and has 3 children. He [...] Date & Time - 07/21/2024 10:28 AM)?ValueReference Range?Xqrnrzitli73.020-40 - mg/dL ???Lab:Free T4 (Free Thyroxine) (Order [...] :He will proceed to the TAVR at [facility] September 30, 2024.? I found no [...] today. He is seen regularly by the obstetrics specialist. He is doing much better on [...] Armando MD Date:?12/2024 Generated for Janny mesa/Ed/Edieitting on:?11/05/2024 05:26 PM EDT History and Physical [...]
--- OUTSIDE RECORDS SUMMARY | 2024-11-05 17:26 | XMS_ITS | Clinical Summary ---
Author Organization [facility] Address [address] [place] [address] Phone Care Team Providers Care Switchboard Manager Name Role Phone Unavailable Primary Care Provider Unavailabl e Social History Tobacco Use Types Packs/Day Years [...] 2 - PCV) 06/20/2014 06/20/2013 RSV Immunization Adult Patients (1 - Risk 60-74 years 1-dose series) 2015 COVID-19 Vaccine (3 - Moderna risk series) 12/25/2020 11/27/2020, 10/29/2020 Abdominal Aortic Aneurysm (AAA) Screen 07/30/2024 Cholesterol Screening (Lipid Panel) 07/30/2024 Colorectal Cancer Screening: Colonoscopy 07/30/2024 Depression Screening 07/30/2024 Falls Risk Assessment 07/30/2024 Hepatitis C Screening 07/30/2024 Medicare Annual Wellness Visit 07/30/2024 Social Influencers of Health Screening 07/30/2024 Hypertension/CHF/CAD Annual BMP Blood Test 07/31/2024 Influenza Vaccine (Season Ended) 2025 07/28/2019, 05/02/2018, 04/24/2017, Additional history exists DTaP,Tdap,and Td Vaccines (2 - Td or [...] age to complete this topic Meningococcal B Vaccine Aged Out No l onger eligible based on patient's age to complete this topic RSV Immunization Patients Under 20 months Aged Out No longer eligible based on patient's age to complete this topic Varicella Vaccines Aged Out No longer eligible based on patient's age to complete this topic Insurance [employer]
--- OUTSIDE RECORDS SUMMARY | 2024-11-05 17:26 | XMS_ITS ---
Author Organization Arnaud Armando III, MD Address [address] [address] Care Team Providers Care Golf Cart Assembler Name Role Phone Arnaud Armando Primary Care Provider REASON FOR VISIT [facility] Risk Codes Social History Sex Assigned At : Social History Observation Description Sex Assigned At Male Encounters Encounter Location Date Provider Diagnosis Arnaud Armando III, MD [address] [place] [address] [place] [address] 09/29/2024 Arnaud Armando Plan Of Treatment Next Appt Details Provider Name:Arnaud Armando, 11/20/2024 09:30:00 AM, [address] [place] [address] [place], [address], Provider Name:Arnaud Armando, 07/22/2025 09:30:00 AM, [address] [place] [address] [address], [place] [address], [place], [address], Progress Notes * Nahed ANDERSONOB:1955 ([age] yo M)Acc No.[id number]:09/29/2024 Patient:?Nicholas ANDERSON :1955???Age:68 Y???Sex:Male Address:[address] [place] [address] * true * Date:? Generated for Janny mesa/Ed/Cynsmitting on:?11/05/2024 05:26 PM EDT
--- OUTSIDE RECORDS SUMMARY | 2024-11-05 17:27 | XMS_ITS | Patient Health Record ---
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 Name Role Phone Arnaud Armando Primary Care Provider Allergies Allergen (clinical drug ingredient) Drug/Non Drug Allergy documented on EMR Reaction Allergy Type Onset Date Status No Known Drug Allergy Unknown Drug Allergy Active Results Component Value Reference Range Notes PROFILE, FASTING (COMPREHENS DARRELL METABOLIC) Reviewed date:09/18/2024 01:38:15 PM Interpretation: Performing Lab: Notes/Report: BRAIN NATRIURETIC PEPTIDE (B LIQUEFACTION SUPERVISOR) Reviewed date:09/18/2024 01:38:27 PM Interpretation: Performing Lab: Notes/Report: CBC WITH AUTO DIFF Reviewed date:09/18/2024 01:38:39 PM Interpretation: Performing Lab: Notes/Report: Lipid Panel Reviewed date:09/18/2024 01:38:51 PM Interpretation: Performing Lab: Notes/Report: PROFILE, FASTING (COMPREHENS DARRELL METABOLIC) Reviewed date:09/18/2024 01:37:11 PM Interpretation: Performing Lab: Notes/Report: BRAIN NATRIURETIC PEPTIDE (B LIQUEFACTION SUPERVISOR) Reviewed date:09/18/2024 01:37:21 PM Interpretation: Performing Lab: Notes/Report: PSA, TOTAL Reviewed date:09/18/2024 01:37:31 PM Interpretation: Performing Lab: Notes/Report: CBC WITH AUTO DIFF Reviewed date:09/18/2024 01:37:52 PM Interpretation: Performing Lab: Notes/Report: Lipid Panel Reviewed date:09/18/2024 01:38:04 PM Interpretation: Performing Lab: Notes/Report: URINE DIP STICK Reviewed date:07/21/2024 09:34:25 AM Interpretation: Performing Lab: Notes/Report: SG 1.020 1.005 - 1.025 pH 8.0 5.0 - 9.0 GREGORY Negative Negative - NIT Negative Negative - PRO 30 Negative - Trace GLU Negative Negative - KET 5 Negative - UBG 0.2 0.1 - 1.8 DENISE Negative 0.2 - 1.3 BLD Negative Negative - Prealbumin Reviewed date:07/22/2024 05:18:01 PM Interpretation: Performing Lab:[facility], [address] [place] [phone] Notes/Report: FAX RESULTS TO [phone] Prealbumin 24.0 20-40 mg/dL Free T4 (Free Thyroxine) Reviewed date:07/22/2024 05:18:01 PM Interpretation: Performing Lab:[facility], [address] [place] [phone] Notes/Report: FAX RESULTS TO [phone] Free T4 (Free Thyroxine) 1.15 0.71-1.85 ng/dL US thyroid Reviewed date:08/22/2024 10:11:23 AM Interpretation: Performing Lab: Notes/Report: Thyroid Stimulating Hormone Reviewed date:07/22/2024 05:18:01 PM Interpretation: Performing Lab:[facility], [address] [place] [phone] Notes/Report: FAX RESULTS TO [phone] Thyroid Stimulating Hormone 2.68 0.32-4.0 uIU/mL Note: A sustained TSH level above 2.5 uIU/mL may warrant further investigation. TSH 3rd Generation ([facility]) CT chest wo con (Not yet rev iewed by provider) Interpretation: Performing Lab: Notes/Report: [address] [address] [address] Scan Report Signed Patient: Nicholas Anderson MR#: [id number] : 1955 Acct:[id number] Age/Sex: 69 / M ADM Date: 10/14/24 Loc: HO.CT Attending Dr: Jose Corey MD Ordering Physician: Jose Corey MD Date of Service: 10/14/24 Procedure(s): CT chest wo IV con Accession Number(s): [id number] cc: Arnaud Armando MD; Jose Corey MD Report Number: [id number]: Total DLP = 150.00 mGy-cm CLINICAL HISTORY: R91.8 - Other nonspecific abnormal finding of lung field CT chest without contrast Comparison: CT/PT - CT OUTSIDE IMAGES - 07/31/24 14:44 EST Findings: The heart is normal size. Calcification of the coronary vasculature. The visualized thyroid and mediastinum are unremarkable. Decreased left lower lobe reticulonodular density. No change in moderate right basilar predominant reticulonodular pulmonary opacity. Multifocal bilateral ground-glass and solid pulmonary nodules are present as before. This includes an 8 mm ground-glass nodule within the right upper lobe anteriorly ( image 52), which is unchanged. Cholelithiasis. The bones are intact. IMPRESSION: 1. Decreased left lower lobe reticulonodular density. Otherwise, no change in above described pulmonary opacities. Follow-up chest CT in 6 months is recommended for further assessment. 2. Coronary artery disease. 3. Cholelithiasis. This document has been electronically signed by: Prakash Linn MD on 10/15/2024 14:28:47 Dictated By: Prakash Linn MD Signed By: <Electronically signed by Prakash Linn MD in OV> 10/15/24 1429 DD/ 1428 TD/TT: 10/15/24 142 Manuscript Reader: [place] [id number] CT Scan Report Signed Patient: Nicholas Anderson MR#: [id number] : 1955 Acct:[id number] Age/Sex: 69 / M ADM Date: 10/14/24 Loc: HO.CT Attending Dr: Jose Corey MD Ordering Physician: Jose Corey MD Date of Service: 10/14/24 Procedure(s): CT odalis st wo IV con Accession Number(s): [id number] cc: Arnaud Armando MD; Jose Corey MD Report Number: [id number]: Total DLP = 150.00 mGy-cm CLINICAL HISTORY: R9 1.8 - Other nonspecific abnormal finding of lung field CT chest without contrast Comparison: CT/PT - CT OUTSIDE IMAGES - 07/31/24 14:44 EST Findings: The heart is normal size. Calcification of the coronary vasculature. The visualized thyro id and mediastinum are unremarkable. Decreased left lower lobe reticulonodular density. No change in moderate right basilar predominant reticulonodular pulmonary opacity. Multifocal bilateral ground-gla ss and solid pulmonary nodules are present as before. This includes an 8 m m ground-glass nodule within the right upper lobe anteriorly ( image 5 2), which is unchanged. Cholelithiasis. The bones are intact. IMPRESSION: 1. Decreased left lo wer lobe reticulonodular density. Otherwise, no change in above described pulmonary opacities. Follow-up chest CT in 6 months is recommended for furt her assessment. 2. Coronary artery disease. 3. Cholelithiasis. This document has be en electronically signed by: Prakash Linn MD on 10/15/2024 14:28:47 Dictated By: Prakash Linn MD Signed By: <Electronically signed by Prakash Linn MD in OV> 10/15/24 1429 DD/ 27 TD/TT: 10/15/241427 Manuscript Reader: Reason For Referral No Information Medications Medication SIG (Take, Route, Frequency, Duration) Notes Start Date End Date Status Vitamin E 400 UNIT 1 tablet Orally twic e a day Active Krill Oil 500 MG as directed Orally Active Carvedilol 17 MG 1 tablet with food O rally Twice a day Active Wixela Inhub 250-50 MCG/ACT INHALE 1 PUF F BY MOUTH TWICE A DAY Active Entresto 24-26 MG 1 tablet Orally Twic e a day Active Rosuvastatin Calcium 20 MG 1 tablet Oral ly Once a day Active Xarelto 20 MG 1 tablet with food O rally Once a day Active Immunizations Vaccine Route Administration Date Status Comme nts Influenza IM Intramuscular 06/20/2013 Administered Pneumococcal IM Intramuscular 06/20/2013 Administered Influenza IM Intramuscular 04/07/2014 Administered Influenza IM Intramuscular 06/23/2015 Administered Influenza IM Intramuscular 05/29/2016 Administered Influenza no Preserv 3 and > IM Intramuscular 04/24/2017 Administered Influenza no Preserv 3 and > IM Intramuscular 05/02/2018 Administered Influenza no Preserv 3 and > IM Intramuscular 07/28/2019 Administered Tdap Unknown 03/23/2018 Administered COVID- 19 Vaccine Unknown 10/29/2020 Administered COVID- 19 Vaccine Unknown 11/27/2020 Administered Social History Tobacco Use: Social History Observation [...] Problem Status W/U Status Risk Notes Problem 3061469 Former smoker (Z87.891) Active confirmed He is highly motivated not to smoke. He has a plan to prevent relapse an time of stress and illness. Problem 437654359 Asthma (J45.909) Active confirmed He is breathing comfortably. No wheezes are heard on examination. No change in his regimen as needed. His COPDD is mild. Problem 229175066 Overweight (E66.3) Active confirmed His body mass index is 25.54. I recommended stabilizing his weight at this level and then gradually reducing it over the summer time. Problem Weight loss (463156302) Weight loss (R63.4) Active confirmed Has been losing weight steadily for unclear reasons. Recently nodules in his lung have been found. On evaluation will be conducted. Problem 66032240 Anxiety (F41.9) Active confirmed His anxiety is well controlled at this time. No additional therapy is necessary. Problem Essential hypertension (52414366) Essential (primary) hypertension (I10) Active confirmed His blood pressure today is normal and well controlled and no change in his regimen was needed. Problem Benign prostatic hyperplasia (019788002) BPH (benign prostatic hyperplasia) (N40.0) Active confirmed He rises from sleep at most once a night to urinate. We have discussed his options for treatment. We reviewed lifestyle modifications he can make to decrease nocturia. Problem 324342499 Anticoagulated (Z79.01) Active confirmed He told me toda y that he has stopped taking his xarelto. He dislikes the cost and does not think he needs it. He was adamant about not restarting it.I urged him to speak to the services coordinator about this at the upcoming visit. Problem 45072639 COPD (chronic obstructive pulmonary disease) (J44.9) Active confirmed He is not s moking and his COPD is mild. No change in his therapy was needed. Problem Thyroid nodule (090098690) Thyroid nodule (E04.1) Active confirmed A significant thyroid nodule in the left lobe was an incidental finding on recent imaging for his heart. He has been losing weight and thyroid function tests have been ordered as well as an ultrasound of the thyroid gland. Problem 97217059 Cardiomyopathy (I42.9) Active confirmed His cardiomyopathy is compensated and there was no sign of congestive heart failure today. He is seen regularly by the services coordinator. He is doing much better on the entresto. Problem 37405580 Other and unspecified hyperlipidemia (E78.5) Active confirmed Her recent lipi d profile shows good control of his lipids in no change in his regimen was needed. Problem 759086397 Hodgkin's disease (C81.90) Active confirmed There is no sign of a new primary lymphoma. Problem 21273631 Aortic stenosis (Q25.3) Active confirmed He will proceed to the TAVR at [facility] September 30, 2024. I found no contraindication to the procedure today. 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 He would like to be put on diazepam twice a day indefinitely as she has read on the Internet that this is helpful thing for muscle spasm. I negotiated a prescription for cyclobenzaprine instead. We discussed the use of long-term control substances which are habit forming. Problem 49185400 Hyperlipidemia, unspecified hyperlipidemia type (E78.5) Active confirmed Comprehensive blood work is not available today. A fasting lipid profile has been ordered. Problem 651223622 Positive colorectal cancer screening using Cologuard test (R19.5) Active confirmed He has had a colonoscopy that did not show a malignancy. Several polyps were removed. He had no complications afterward. Problem 777717426 Nonrheumatic aortic valve insufficiency (I35.1) Active confirmed He is currently be considered for TAVR. Vital Signs Heart Rate 80 /min 09/18/2024 Temperature 99.0 degrees Fahrenheit 09/18/2024 Blood pressure diastolic 64 mm Hg 09/18/2024 Height 70 in 09/18/2024 Blood pressure systolic 132 mm Hg 09/18/2024 Weight 167 lbs 09/18/2024 BMI 23.96 kg/m2 09/18/2024 Encounters Encounter Location Date Provider Diagnosis Arnaud Armando III, MD [address] [place] [address] [place] [phone] 01/23/2024 Arnaud Armando Aortic stenosis Q25. 3 ; Hodgkin's disease C81.90 ; Hyperlipidemia, unspecified hyperlipidemia type E78.5 ; Cardiomyopathy I42.9 ; COPD (chronic obstructive pulmonary disease) J44.9 ; Asthma J45.909 and Former smoker Z87.891 Arnaud Armando III, MD [address] [place] [address] [place] [address] 05/15/2024 Arnaud Rolandrne Aortic stenosis Q25. 3 ; Other and unspecified hyperlipidemia E78.5 ; BPH (benign prostatic hyperplasia) N40.0 ; Hodgkin's disease C81.90 ; COPD (chronic obstructive pulmonary disease) J44.9 ; Former smoker Z87.891 ; Asthma J45.909 ; Radiation fibrosis of soft tissue from therapeutic procedure L59.9 and HTN (hypertension) I10 Arnaud Armando III, MD [address] [place] [address] [place] [address] 07/21/2024 Arnaud Armando Aortic stenosis Q25. 3 [...] procedure L59.9 and Essential (primary) hypertension I10 Arnaud Armando III, MD [address] [place] [address] [place] [address] 07/30/2024 Arnaud Rolandrne Aortic stenosis Q25. 3 ; Cardiomyopathy I42.9 ; Hodgkin's disease C81.90 ; Other and unspecified hyperlipidemia E78.5 ; Asthma J45.909 ; COPD (chronic obstructive pulmonary disease) J44.9 ; Neuromuscular disease G70.9 ; Pulmonary nodules R91.8 and Thyroid nodule E04.1 Arnaud Armando III, MD [address] [place] [address] [place] [address] 08/13/2024 Arnaud Casarezne Aortic stenosis Q25. 3 ; Hodgkin's disease C81.90 ; Asthma J45.909 ; COPD (chronic obstructive pulmonary disease) J44.9 ; Neuromuscular disease G70.9 and Former smoker Z87.891 Arnaud Armando III, MD [address] [place] [address] [place] [address] 09/18/2024 Arnaud Rolandrne Aortic stenosis Q25. 3 ; Hodgkin's disease C81.90 ; COPD (chronic obstructive pulmonary disease) J44.9 ; Cardiomyopathy I42.9 ; Asthma J45.909 ; Radiation fibrosis of soft tissue from therapeutic procedure L59.9 ; Other and unspecified hyperlipidemia E78.5 ; Essential (primary) hypertension I10 and Former smoker Z87.891 Arnaud Armando III, MD [address] [place] [address] [place] [address] 07/22/2024 Arnaud Armando III, MD [address] [place] [address] [place], [place] [phone] 09/29/2024 Arnaud Armando Assessments Encounter Date Diagnosis (ICD Code) Assessment Notes T reatment Notes Treatment Clinical Notes 01/23/2024 Hodgkin's disease (ICD-10 - C81.90) There is no sign of a new primary lymphoma. 01/23/2024 Aortic stenosis (ICD-10 - Q25.3) He will continue to see the services coordinator and appropriate intervals. He would be a good medical candidate for cardiac surgery if necessary. 05/15/2024 Other and unspecified hyperlipidemia (ICD-10 - E78.5) Her recent lipid profile shows good control of his lipids in no change in his regimen was needed. 05/15/2024 Aortic stenosis (ICD-10 - Q25.3) He will continue to see the services coordinator and appropriate intervals. He would be a good medical candidate for cardiac surgery if necessary.Appointment to see his services coordinator this month. 07/21/2024 Aortic stenosis (ICD-10 - Q25.3) He will continue to see the services coordinator and appropriate intervals. He would be a good medical candidate for cardiac surgery if necessary.Appointment to see his services coordinator this month. 07/21/2024 Nonrheumatic aortic valve insufficiency (ICD-10 - I35.1) He is currently be considered for TAVR. 07/30/2024 Cardiomyopathy (ICD-10 - I42.9) His cardiomyopathy is compensated and there was no sign of congestive heart failure today. He is seen regularly by the services coordinator. He is doing much better on the entresto. 07/30/2024 Aortic stenosis (ICD-10 - Q25.3) He will continue to see the services coordinator and appropriate intervals. He would be a good medical candidate for cardiac surgery if necessary.Appointment to see his services coordinator this month. 08/13/2024 Hodgkin's disease (ICD-10 - C81.90) There is no sign of a new primary lymphoma. 08/13/2024 Aortic stenosis (ICD-10 - Q25.3) We are awaiting the day of the TAVR now that the PET CT scan is negative for malignancy. He continues to have mild shortness of breath with exertion. Recent studies have shown significant aortic stenosis and insufficiency. 09/18/2024 Hodgkin's disease (ICD-10 - C81.90) There is no sign of a new primary lymphoma. 09/18/2024 Aortic stenosis (ICD-10 - Q25.3) He will proceed to the TAVR at [facility] September 30, 2024. I found no contraindication to the procedure today. 01/23/2024 Hyperlipidemia, unspecified hyperlipidemia type (ICD-10 - E78.5) Comprehensive blood work is not available today. A fasting lipid profile has been ordered. 05/15/2024 BPH (benign prostatic hyperplasia) (ICD-10 - N40.0) He rises from sleep at most once a night to urinate. We have discussed his options for treatment. We reviewed lifestyle modifications he can make to decrease nocturia. 07/21/2024 Thyroid nodule (ICD-10 - E04.1) A significant thyroid nodule in the left lobe was an incidental finding on recent imaging for his heart. He has been losing weight and thyroid function tests have been ordered as well as an ultrasound of the thyroid gland. 07/30/2024 Hodgkin's disease (ICD-10 - C81.90) There is no sign of a new primary lymphoma. 08/13/2024 Asthma (ICD-10 - J45.909) He is breathing comfortably. No wheezes are heard on examination. No change in his regimen as needed. His COPDD is mild. 09/18/2024 COPD (chronic obstructive pulmonary disease) (ICD-10 - J44.9) He is not smoking and his COPD is mild. No change in his therapy was needed. 01/23/2024 Cardiomyopathy (ICD-10 - I42.9) His cardiomyopathy is compensated and there was no sign of congestive heart failure today. He is seen regularly by the services coordinator. He is doing much better on the entresto. 05/15/2024 Hodgkin's disease (ICD-10 - C81.90) There is no sign of a new primary lymphoma. 07/21/2024 Weight loss (ICD-10 - R63.4) Has been losing weight steadily for unclear reasons. Recently nodules in his lung have been found. On evaluation will be conducted. 07/30/2024 Other and unspecified hyperlipidemia (ICD-10 - E78.5) Her recent lipid profile shows good control of his lipids in no change in his regimen was needed. 08/13/2024 COPD (chronic obstructive pulmonary disease) (ICD-10 - J44.9) He is not smoking and his COPD is mild. No change in his therapy was needed. 09/18/2024 Cardiomyopathy (ICD-10 - I42.9) His cardiomyopathy is compensated and there was no sign of congestive heart failure today. He is seen regularly by the services coordinator. He is doing much better on the entresto. 01/23/2024 COPD (chronic obstructive pulmonary disease) (ICD-10 - J44.9) He is not smoking and his COPD is mild. No change in his therapy was needed. 05/15/2024 COPD (chronic obstructive pulmonary disease) (ICD-10 - J44.9) He is not smoking and his COPD is mild. No change in his therapy was needed. 07/21/2024 Cardiomyopathy (ICD-10 - I42.9) His cardiomyopathy is compensated and there was no sign of congestive heart failure today. He is seen regularly by the services coordinator. He is doing much better on the entresto. 07/30/2024 Asthma (ICD-10 - J45.909) He is breathing comfortably. No wheezes are heard on examination. No change in his regimen as needed. His COPDD is mild. 08/13/2024 Neuromuscular disease (ICD-10 - G70.9) He continues to complain of pain because of the weakness in his neck and back muscles which is from the radiation therapy he received many years ago for Hodgkin's disease. 09/18/2024 Asthma (ICD-10 - J45.909) He is breathing comfortably. No wheezes are heard on examination. No change in his regimen as needed. His COPDD is mild. 01/23/2024 Asthma (ICD-10 - J45.909) He is breathing comfortably. No wheezes are heard on examination. No change in his regimen as needed. His COPDD is mild. 05/15/2024 Former smoker (ICD-10 - Z87.891) He is highly motivated not to smoke. He has a plan to prevent relapse an time of stress and illness. 07/21/2024 Hodgkin's disease (ICD-10 - C81.90) There is no sign of a new primary lymphoma. 07/30/2024 COPD (chronic obstructive pulmonary disease) (ICD-10 - J44.9) He is not smoking and his COPD is mild. No change in his therapy was needed. 08/13/2024 Former smoker (ICD-10 - Z87.891) He is highly motivated not to smoke. He has a plan to prevent relapse an time of stress and illness. 09/18/2024 Radiation fibrosis of soft tissue from [...] long-term control substances which are habit forming. 01/23/2024 Former smoker (ICD-10 - Z87.891) He is highly motivated not to smoke. He has a plan to prevent relapse an time of stress and illness. 05/15/2024 Asthma (ICD-10 - J45.909) He is breathing comfortably. No wheezes are heard on examination. No change in his regimen as needed. His COPDD is mild. 07/21/2024 COPD (chronic obstructive pulmonary disease) (ICD-10 - J44.9) He is not smoking and his COPD is mild. No change in his therapy was needed. 07/30/2024 Neuromuscular disease (ICD-10 - G70.9) He continues to complain of pain because of the weakness in his neck and back muscles which is from the radiation therapy he received many years ago for Hodgkin's disease. 09/18/2024 Other and unspecified hyperlipidemia (ICD-10 - E78.5) Her recent lipid profile shows good control of his lipids in no change in his regimen was needed. 05/15/2024 Radiation fibrosis of soft tissue from therapeutic [...] control substances which are habit forming. 07/21/2024 Neuromuscular disease (ICD-10 - G70.9) He continues to complain of pain because of the weakness in his neck and back muscles which is from the radiation therapy he received many years ago for Hodgkin's disease. 07/30/2024 Pulmonary nodules (ICD-10 - R91.8) 09/18/2024 Essential (primary) hypertension (ICD-10 - I10) His blood pressure today is normal and well controlled and no change in his regimen was needed. 05/15/2024 HTN (hypertension) (ICD-10 - I10) His blood pressure is normal and well controlled and no change in his regimen was needed today.Today's blood pressure ftw209/58. 07/21/2024 Asthma (ICD-10 - J45.909) He is breathing comfortably. No wheezes are heard on examination. No change in his regimen as needed. His COPDD is mild. 07/30/2024 Thyroid nodule (ICD-10 - E04.1) A significant thyroid nodule in the left lobe was an incidental finding on recent imaging for his heart. He has been losing weight and thyroid function tests have been ordered as well as an ultrasound of the thyroid gland. 09/18/2024 Former smoker (ICD-10 - Z87.891) He is highly motivated not to smoke. He has a plan to prevent relapse an time of stress and illness. 07/21/2024 Other and unspecified hyperlipidemia (ICD-10 - [...] his regimen was needed. Plan Of Treatment Pending Test Test Name Order Date CT chest wo con 10/15/2024 Next Appt Details Provider Name:Arnaud Armando, 11/20/2024 09:30:00 AM, [address] [place] [address] [address], [place], [phone], Provider Name:Arnaud Armando, 07/22/2025 09:30:00 AM, [address] [place] [address] [address], [place], [phone], Insurance Providers Payer Name Payer Address Payer Phone Subscriber Number Group Number Insured Name Patient Relationship to Insured Coverage Start Date Coverage End Date [facility] [address] [facility] [address] [facility] [place] [phone] [id number] Nicholas Anderson Self - patient is the insured 9 MEDICARE NGS [address] [facility] [place] [address] [id number] Nicholas Anderson Self - patient is the insured Medical (General) History Medical History History ICD Code hypertension hyperlipidemia Hodgkins disease asthma anxiety 1974 osteoblastoma cervical vertebra thoracic muscle weakness noN ischemic cardiomyopathy aortic stenosis Last Bundle-branch block Aortic Stenosis, Aortic Insufficiency, H odgkin's disease, Pacemaker Surgical History Surgery Date(Month/Year) No history pacemaker 08/04 angioplasty 05/2019 resection cervical osterblastoma 1975 Hospitalization History Reason Date(Month/Year) No history
--- OUTSIDE RECORDS SUMMARY | 2024-11-05 17:27 | XMS_ITS | Clinical Summary ---
Author Organization [facility] [employer] [facility] [employer] Address [address] [place] [address] Care Team Providers Care Plumber And Tinner Name Role Phone No, Pcp BLACK LEATHER TRIMMER Primary Care Provider Unavailabl e Allergies No [...] Adults 18 yrs or above (or HM Modifier)([facility]) 1955 Hepatitis C Virus Infection in Adolescents and Adults: Screening (or Modifier) ([facility]) 10/10/1973 SDOH Screening Reminder: Juliana ually for all adults ([facility]) 10/10/1973 Tobacco Smoking Cessation: i n Adults excluding Women: Behavioral and Pharmacotherapy Interventions ([facility]) 10/10/1973 Lipid Screening: Every 5 yrs for Men aged 35+ (or HM Modifier) ([facility]) 1991 Colorectal Cancer Screening 45 -75 Yrs (or HM Modifier) 10/10/2000 Colorectal Cancer: FLEXIBLE SIGMOIDOSCOPY Screening every 5 yrs 10/10/2000 Colorectal Cancer: Fecal Imm unochemical Test (FIT) Annually [facility] 10/10/2000 Colorectal Cancer: High-sens itivity gFOBT Screening Annually [facility] 10/10/2000 Colorectal Cancer: Stool Col oguard Screening every 3 yrs 10/10/2000 Colorectal Cancer:CT Colonog grant Screening every 5 yrs 10/10/2000 Lung Cancer: Screening Annua lly in adults aged 50 to 80 years (or HM Modifiers)([facility]) 10/10/2005 Pneumococcal Vaccination Scr eening: Patients 50+ yrs of age ([facility]) (1 of 1 - PCV) 10/10/2005 Zoster/Shingles Vaccine Seri es Screening: Adults aged 18+ yrs (or HM Modifiers)([facility]) (1 of 2) 10/10/2005 COVID-19 Vaccine Screening: Initial Series and Booster Status ([facility]) ( - 2023- season) 2024 Flu Vaccination: Ages 65+: Y early High Dose Recommended (or Modifier)([facility]) 02/13/2025 DTaP/Tdap/Td Vaccines ([facility]) (2 - Td or Tdap) 03/23/2018 RSV Vaccines (1 - 1-dose 75+ series) 10/10/2030 Medical Devices Not on file Insurance [facility] [place] [address] Care Teams Plumber And Tinner Relationship Specialty Start Date End Date No, Pcp, BLACK LEATHER TRIMMER N/A Do not use PCP - General 03/23/18
== END 2024-11-05 14:52 | disposition home or self-care (01) ==
LOC: HO.HPS 14:34
PROVIDERS: PCP Internal Medicine Medical Oncology; Visit Provider Internal Medicine Pulmonary Disease
DX: R91.8 Other nonspecific abnormal finding of lung field (principal); J44.9 Chronic obstructive pulmonary disease, unspecified
CPT/HCPCS: 99214

== ENCOUNTER → 2024-11-05 14:33 | Outpatient (BNVA) | payer MEDICARE, SELFPAY | PROVIDERS: PCP Internal Medicine Medical Oncology; Visit Provider Internal Medicine Pulmonary Disease | DX: J44.9 Chronic obstructive pulmonary disease, unspecified (principal); R91.8 Other nonspecific abnormal finding of lung field | CPT/HCPCS: 99212 ==

== ENCOUNTER 2025-04-16 15:34 | Outpatient (REF) | payer MEDICARE, SELFPAY ==
--- OUTSIDE RECORDS SUMMARY | 2024-09-18 06:15 | XMS_ITS ---
Author Organization Arnaud Armando III, MD Address [address] [place] [address] Care Team Providers Care Belt Dresser Name Role Phone Dr. Arnaud Armando III Primary Care Provider Allergies Allergen (clinical drug ingredient) Drug/Non Drug Allergy documented on EMR Reaction Allergy Type Onset Date Status No Known Drug Allergy Unknown Drug Allergy Active REASON FOR VISIT TAVR Scheduled September 30, 2024 at [facility], Aortic stenosis, Hyperlipidemia, Asthma, COPD, Posterior thoracic muscle weakness, Hypertension, Benign prostatic hypertrophy Medications Medication SIG (Take, Route, Frequency, Duration) Notes Start Date End Date Status Vitamin E 400 UNIT 1 tablet Orally twic e a day Active Carvedilol 17 MG 1 tablet with food O rally Twice a day Active Entresto 24-26 MG 1 tablet Orally Twic e a day Active Rosuvastatin Calcium 20 MG 1 tablet Oral ly Once a day Active Xarelto 20 MG 1 tablet with food O rally Once a day Active Krill Oil 500 MG as directed Orally Active Wixela Inhub 250-50 MCG/ACT INHALE 1 PUF F BY MOUTH TWICE A DAY Active Social History Tobacco Use: Social History Observation Description Date Details (start date - stop date) Former Smoker NA - NA Sex Assigned At : Social History Observation Description Sex Assigned At Male Tobacco Control (Standard) Question Answer Notes Tobacco use: Former smoker How long has it been since you last smoked? Grea ter than 10 years Additional Findings: Tobacco non-user Ex-cigaret te smoker Vital Signs Temperature 99.0 degrees Fahrenheit 09/19/19 25 Blood pressure systolic 132 mm Hg 09/19/19 25 Blood pressure diastolic 64 mm Hg 025 Heart Rate 80 /min 09/18/2024 Height 70 in 09/18/2024 Weight 167 lbs 09/18/2024 BMI 23.96 kg/m2 09/18/2024 Encounters Encounter Location Date Provider Diagnosis Arnaud Armando III, MD [address] [place] [address] [place] [address] 09/18/2024 Arnaud Armando Aortic stenosis Q25. 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 I found no contraindication to the procedure today. 09/18/2024 Hodgkin's disease (ICD-10 - C81.90) There is no sign of a new primary lymphoma. 09/18/2024 COPD (chronic obstructive pulmonary disease) (ICD-10 - J44.9) He is not smoking and his COPD is mild. No change in his therapy was needed. 09/18/2024 Cardiomyopathy (ICD-10 - I42.9) His cardiomyopathy is compensated and there was no sign of congestive heart failure today. He is seen regularly by the real estate development manager. He is doing much better on the entresto. 09/18/2024 Asthma (ICD-10 - J45.909) He is breathing comfortably. No wheezes are heard on examination. No change in his regimen as needed. His COPDD is mild. 09/18/2024 Radiation fibrosis of soft tissue from therapeutic [...] long-term control substances which are habit forming. 09/18/2024 Other and unspecified hyperlipidemia (ICD-10 - E78.5) Her recent lipid profile shows good control of his lipids in no change in his regimen was needed. 09/18/2024 Essential (primary) hypertension (ICD-10 - I10) His blood pressure today is normal and well controlled and no change in his regimen was needed. 09/18/2024 Former smoker (ICD-10 - Z87.891) He is highly motivated not to smoke. He has a plan to prevent relapse an time of stress and illness. Plan Of Treatment Medication Medication Name Sig Start Date Stop Date Notes Vitamin E 400 UNIT 1 tablet Orally twice a day Carvedilol 17 MG 1 tablet with food O rally Twice a day Entresto 24-26 MG 1 tablet Orally Twice a day Rosuvastatin Calcium 20 MG 1 tablet Orally Once a day Xarelto 20 MG 1 tablet with food O rally Once a day Krill Oil 500 MG as directed Orally Wixela Inhub 250-50 MCG/ACT INHALE 1 PUF F BY MOUTH TWICE A DAY Next Appt Details Follow Up: 8 weeks, Reason: OV Provider Name:Arnaud Armando , 05/04/2025 09:30:00 AM, [address] [place] [address] [address] [place], [place], [address], Provider Name:Arnaud Armando , 07/22/2025 09:30:00 AM, [address] [place] [address] [address], [place], [address], Progress Notes * Nahed ANDERSONOB:1955 ([age] yo M)Acc No.[id number]:09/18/2024 Progress Notes Patient: Nicholas CROCKETT Provider: Yoselyn Armando MD :1955 A ge:68 Y S ex:Male Date:09/18/2024 Address:[address] [place] [address] [id number] Subjective: * Chief Complaints: * [facility] stenosisHyperlipidemiaAsthmaCOPDPosterior thoracic muscle weaknessHypertensionBenign prostatic hypertrophy * HPI: C OVID-19 Screening: He is scheduled to have a TAVR for critical aortic stenosis September 30, 2024 at [facility] to be done by Dr. Boateng. He was comfortable breathing room air today. He is short of breath with exertion which limits his quality of life. He denies any recent chest pain. He continues to grieve the loss of his son recently from a brain tumor. He has been compliant with all of his medications. He understands the procedure and wishes to proceed. I found no contraindication to the cardiac procedure today. He is given for medical clearance. Questions H ave you had any new onset fever, chills, cough, congestion, sore throat, shortness of breath, muscle aches? N o * ROS: G eneral/Constitutional: pain N humble muscles and upper thoracic spine. C hills?denies. F atigue a dmits. F ever d enies. E NT: Decreased hearing d enies. R espiratory: Cough d enies. C ardiovascular: Chest pain with exertion d enies. D yspnea on exertion?with mild activity. S hortness of breath w ith exertion. G astrointestinal: Constipation o ccasional. D ecreased appetite d enies. D iarrhea d enies. H eartburn d enies. N ausea d enies. R ectal bleeding d enies. V omiting d enies. H ematology: bruising d enies. p etechiae d enies. S wollen glands n one have been noted. G enitourinary: Frequent urination d enies. M usculoskeletal: Muscle aches d enies. P ainful joints d enies. S ciatica d enies. W eakness P elvic muscles and upper back. S kin: Itching d enies. R janice [...] Social History: T obacco Use: T obacco Control (Standard) T obacco use: F ormer smoker H ow long has it been since you last smoked??Greater than 10 years A dditional Findings: Tobacco non-user E x-cigarette smoker H e was born in [place]. He is and has 3 children. He [...] Verified] Objective: * Vitals: H t: 70, Wt:167, BMI:23.96, BP:132/64, HR:80, Temp:99.0, Ht-cm: 177.8, Wt-k.75. * P ast Orders: L ab:Thyroid Stimulating Hormone (Order Date - 07/21/2024) (Collection Date & Time - 07/21/2024 10:28 AM) Value Reference Range Thyroid Stimulating Hormone 2.68 0.32-4.0 - u IU/mL Lab:URINE DIP STICK * Collection Date 07/21/2024 [...] Negative -) neg Menstrating NR N/A n/a ???Lab:Prealbumin (Order Date - 07/21/2024) (Collection Date & Time - 07/21/2024 10:28 AM)?ValueReference Range?Julagqavop07.020-40 - mg/dL ???Lab:Free T4 (Free Thyroxine) (Order Date - 07/21/2024) (Collection Date & Time - 07/21/2024 10:28 AM)?ValueReference Range?Free T4 (Free Thyroxine)1.150.71-1.85 - ng/dL ???Imaging:US thyroid (Order Date - 07/21/2024) (Performed Date - 08/22/2024) * Examination: G eneral Examination: GENERAL APPEARANCE: p leasant, well nourished, well developed, in no acute distress, calm and relaxed, man. HEAD: a traumatic, normocephalic. EYES: e joselin, perrla, anicteric, conjugate. EARS: n ormal. NOSE: s eptum intact. ORAL CAVITY: n ormal, unremarkable. NECK/THYROID: n o jugular venous distention, no carotid bruit, thyroid normal. LYMPH NODES: n o enlarged lymph nodes,spleen normal. SKIN: n o suspicious lesions, anicteric. HEART: n o clicks, gallops, 1/6 systolic m urmur, or rubs, regular rhythm, S1, S2 normal, no s3, or vascular bruits. LUNGS: c lear to auscultation . BREASTS: no masses palpable bilaterally. ABDOMEN: b owel sounds normal, no ascites, no organomegaly, no mass. RECTAL EXAM: n ot examined. MUSCULOSKELETAL: e xtremities unremarkable, no clubbing, cyanosis or edema, Rectangular area of muscle atrophy upper back and neck. PERIPHERAL PULSES: n ormal. NEUROLOGIC: a lert and oriented, cranial nerves 2-12 grossly intact, deep tendon reflexes 2+ symmetrical, motor strength normal upper and lower extremities, sensory exam intact. PSYCH: a lert, oriented. Assessment: * Assessment: 1. A ortic stenosis - Q25.3 (Primary) N otes :He will proceed to the TAVR at [facility] September 30, 2024. I found no contraindication to the procedure today. 2 . H odgkin's disease - C81.90 N otes :There is no sign of a new primary lymphoma. 3 . C OPD (chronic obstructive pulmonary disease) - J44.9 N otes :He is not smoking and his COPD is mild. No change in his therapy was needed. 4 . C ardiomyopathy - I42.9 N otes :His cardiomyopathy is compensated and there was no sign of congestive heart failure today. He is seen regularly by the real estate development manager. He is doing much better on the entresto. 5 . A sthma - J45.909 N otes :He is breathing comfortably. No wheezes are heard on examination. No change in his regimen as needed. His COPDD is mild. 6 . 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 He would like to be put on diazepam twice a day indefinitely as she has read on the Internet that this is helpful thing for muscle spasm. I negotiated a prescription for cyclobenzaprine instead. We discussed the use of long-term control substances which are habit forming. 7 . O ther and unspecified hyperlipidemia - E78.5 N otes :Her recent lipid profile shows good control of his lipids in no change in his regimen was needed. 8 . E ssential (primary) hypertension - I10 N otes :His blood pressure today is normal and well controlled and no change in his regimen was needed. 9 . F ormer smoker - Z87.891 N [...] tobacco use and urged to quit. 0 09/17/2024 * Follow Up: 8 weeks (Reason: OV) * Images: * Sign off status: Completed true * Provider: Yoselyn Armando MD Date: 0 09/18/2024 Generated for Janny mesa/Ed/Stepan on: 04:46 PM EDT History and Physical Notes * HPI (History of Present Illness) Category Sub-Category Detail Notes COVID-19 Screening Questions Have you had any new onset fever, chills, cough, congestion, sore throat, shortness of breath, muscle aches?: No Examination Category Sub-Category Detail Notes General Examination GENERAL APPEARANCE: pleasant , well nourished, well developed, in no acute distress, calm and relaxed, man HEAD: atraumatic, normocep halic EYES: eomi, perrla, anicte mini, conjugate EARS: normal NOSE: septum intact NECK/THYROID: no jugular venous di stention, no carotid bruit, thyroid normal HEART: no clicks, gallops, 1/6 systolic murmur, or rubs, regular rhythm, S1, S2 normal, no s3, or vascular bruits LUNGS: clear to auscultatio n ABDOMEN: bowel sounds normal, no ascites, no organomegaly, no mass NEUROLOGIC: alert and oriented, cranial nerves 2-12 grossly intact, deep tendon reflexes 2+ symmetrical, motor strength normal upper and lower extremities, sensory exam intact SKIN: no suspicious lesion s, anicteric PERIPHERAL PULSES: normal BREASTS: no masses palpable b ilaterally MUSCULOSKELETAL: extremities unremark able, no clubbing, cyanosis or edema, Rectangular area of muscle atrophy upper back and neck LYMPH NODES: no enlarged lymph no kennedy,spleen normal RECTAL EXAM: not examined PSYCH: alert, oriented ORAL CAVITY: normal, unremarkable
--- OUTSIDE RECORDS SUMMARY | 2024-09-29 06:52 | XMS_ITS ---
Author Organization Arnaud Armando III, MD Address [address] [facility] [place] [address] Care Team Providers Care Chargeback Specialist Name Role Phone Dr. Arnaud Armando III Primary Care Provider REASON FOR VISIT HCC Risk Codes Social History Sex Assigned At : Social History Observation Description Sex Assigned At Male Encounters Encounter Location Date Provider Diagnosis Arnaud Armando III, MD [address] [place] [address] [place] [address] 09/29/2024 Arnaud Armando Plan Of Treatment Next Appt Details Provider Name:Arnaud Armando , 05/04/2025 09:30:00 AM, [address] [place] [address] [place], [address], Provider Name:Arnaud Armando , 07/22/2025 09:30:00 AM, [address] [place] [address] [address], [place], [address], Progress Notes * Nahed ANDERSONOB:1955 ([age] yo M)Acc No.[id number]:09/29/2024 Patient: Nicholas CROCKETT :1955 A ge:68 Y S ex:Male Address:[address] [place] [id number] * true * Date: Generated for Janny mesa/Ed/Edieitting on: 04:46 PM EDT
--- OUTSIDE RECORDS SUMMARY | 2024-11-20 05:30 | XMS_ITS ---
Author Organization Arnaud Armando III, MD Address [address] [place] [address] Care Team Providers Care Biometrics Analyst Name Role Phone Dr. 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, COPD, Benign prostatic hypertrophy Medications Medication SIG (Take, Route, Frequency, Duration) Notes Start Date End Date Status Entresto 24-26 MG 1 tablet Orally Twic e a day Active Xarelto 20 MG 1 tablet with food O rally Once a day Active Rosuvastatin Calcium 20 MG 1 tablet Oral ly Once a day Active Carvedilol 17 MG 1 tablet with food O rally Twice a day Active Wixela Inhub 250-50 MCG/ACT INHALE 1 PUF F BY MOUTH TWICE A DAY Active Vitamin E 400 UNIT 1 tablet Orally twic e a day Active Krill Oil 500 MG as directed Orally Active Social History Tobacco Use: Social History Observation Description Date Details (start date - stop date) Former Smoker NA - NA Sex Assigned At : Social History Observation Description Sex Assigned At Male Tobacco Control (Standard) Question Answer Notes Tobacco use: Former smoker How long has it been since you last smoked? Joellena ter than 10 years Additional Findings: Tobacco non-user Ex-cigaret te smoker Vital Signs Temperature 97.7 degrees Fahrenheit 11/21/19 25 Blood pressure systolic 123 mm Hg 11/21/19 25 Blood pressure diastolic 66 mm Hg 025 Heart Rate 75 /min 11/20/2024 Height 70 in 11/20/2024 Weight 164 lbs 11/20/2024 BMI 23.53 kg/m2 11/20/2024 Encounters Encounter Location Date Provider Diagnosis Arnaud Armando III, MD [address] [place] [address] [place] [address] 11/20/2024 Arnaud Armando Aortic stenosis Q25. 3 ; Weight loss R63.4 ; Cardiomyopathy I42.9 ; Hodgkin's disease C81.90 ; COPD (chronic obstructive pulmonary disease) J44.9 ; Asthma J45.909 ; Essential (primary) hypertension I10 and Former smoker Z87.891 Assessments Encounter Date Diagnosis (ICD Code) Assessment Notes Treat ment Notes Treatment Clinical Notes 11/20/2024 Aortic stenosis (ICD-10 - Q25.3) He had the TAVR at [facility] September 30, 2024. The new valve appears to be working well. 11/20/2024 Weight loss (ICD-10 - R63.4) His BMI is now 23. Her continue to watch his weight to see if it becomes under weight. A thyroid evaluation has been ordered. 11/20/2024 Cardiomyopathy (ICD-10 - I42.9) His cardiomyopathy is compensated and there was no sign of congestive heart failure today. He is seen regularly by the scientologist. He is doing much better on the entresto. 11/20/2024 Hodgkin's disease (ICD-10 - C81.90) There is no sign of a new primary lymphoma. 11/20/2024 COPD (chronic obstructive pulmonary disease) (ICD-10 - J44.9) He is not smoking and his COPD is mild. No change in his therapy was needed. 11/20/2024 Asthma (ICD-10 - J45.909) He is breathing comfortably. No wheezes are heard on examination. No change in his regimen as needed. His COPDD is mild. 11/20/2024 Essential (primary) hypertension (ICD-10 - I10) His blood pressure today is normal and well controlled and no change in his regimen was needed. 11/20/2024 Former smoker (ICD-10 - Z87.891) He is highly motivated not to smoke. He has a plan to prevent relapse an time of stress and illness. Plan Of Treatment Medication Medication Name Sig Start Date Stop Date Notes Entresto 24-26 MG 1 tablet Orally Twice a day Xarelto 20 MG 1 tablet with food O rally Once a day Rosuvastatin Calcium 20 MG 1 tablet Orally Once a day Carvedilol 17 MG 1 tablet with food O rally Twice a day Wixela Inhub 250-50 MCG/ACT INHALE 1 PUF F BY MOUTH TWICE A DAY Vitamin E 400 UNIT 1 tablet Orally twice a day Krill Oil 500 MG as directed Orally Pending Test Test Name Order Date PROFILE, FASTING (COMPREHENSIVE METABOLI C) 11/20/2024 TSH (THYROID STIMULATING HORMONE) 2024 CBC w DIFF 11/20/2024 FREE T3 (FT3) 11/20/2024 Lipid Panel 11/20/2024 Free T4 (Free Thyroxine) 11/20/2024 Next Appt Details Follow Up: 6 Weeks, Reason: OV Provider Name:Arnaud Armando , 05/04/2025 09:30:00 AM, [address] [place] [address] [place], [address], Provider Name:Arnaud Armando , 07/22/2025 09:30:00 AM, [address] [place] [address] [place], [address], Progress Notes * Jesus ANDERSON:1955 ([age] yo M)Acc No.[id number]:11/20/2024 Progress Notes Patient: Nicholas CROCKETT Provider: Yoselyn Armando MD :1955 A ge:69 Y S ex:Male Date:11/20/2024 Address:[address] [place] [address] [place], [id number] Subjective: * Chief Complaints: * R ecent TAVR Due to aortic stenosisMuscle weakness From radiation 5 paralysisCOPDBenign prostatic hypertrophy * HPI: C OVID-19 Screening: Jos mack recently underwent a TAVR at [facility] by Dr. Schwartz, his scientologist. He has noted a marked improvement in his dizziness postural hypotension and shortness of breath with exertion. He has had no chest pain. They used a right groin approach and that has now completely healed. He feels healthy and well. He arises from sleep once or twice a night to urinate. 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 Questions H ave you had any new [...] yspnea on exertion?denies. S hortness of breath M uch improved. G astrointestinal: Constipation d enies. D ecreased [...] P sychiatric: Depressed mood w hich is mild. * Medical History: * Surgical History: r [...] x-cigarette smoker H e was born in [place]. He is and has 3 children. He [...] Verified] Objective: * Vitals: H t: 70, Wt:164, BMI:23.53, BP:123/66, HR:75, Temp:97.7, Ht-cm: 177.8, Wt-k.39. * Examination: G eneral Examination: GENERAL APPEARANCE: [...] lesions, anicteric. HEART: n o clicks, gallops, murmurs, or rubs, regular rhythm, S1, S2 normal, no s3, or vascular bruits. LUNGS: c lear to auscultation . BREASTS: no masses palpable bilaterally. ABDOMEN: b owel sounds normal, no ascites, no organomegaly, no mass. RECTAL EXAM: n ot examined. MUSCULOSKELETAL: e xtremities unremarkable, no clubbing, cyanosis or edema, Healed scar back of neck, rectangular area of muscle loss, upper back,. PERIPHERAL PULSES: n ormal. NEUROLOGIC: a lert and oriented, cranial nerves 2-12 grossly intact, deep tendon reflexes 2+ symmetrical, motor strength normal upper and lower extremities, sensory exam intact. PSYCH: a lert, oriented, mood depressed. ? Assessment: * Assessment: 1. A ortic stenosis - Q25.3 (Primary) N otes :He had the TAVR at [facility] September 30, 2024. The new valve appears to be working well. 2 . W eight loss - R63.4 N otes :His BMI is now 23. Her continue to watch his weight to see if it becomes under weight. A thyroid evaluation has been ordered. 3 . C ardiomyopathy - I42.9 N otes :His cardiomyopathy is compensated and there was no sign of congestive heart failure today. He is seen regularly by the scientologist. He is doing much better on the entresto. 4 . H odgkin's disease - C81.90 N otes :There is no sign of a new primary lymphoma. 5 . C OPD (chronic obstructive pulmonary disease) - J44.9 N otes :He is not smoking and his COPD is mild. No change in his therapy was needed. 6 . A sthma - J45.909 N otes :He is breathing comfortably. No wheezes are heard on examination. No change in his regimen as needed. His COPDD is mild. 7 . E ssential (primary) hypertension - I10 N otes :His blood pressure today is normal and well controlled and no change in his regimen was needed. 8 . F ormer smoker - Z87.891 N otes :He is highly motivated not to smoke. He has a plan to prevent relapse an time of stress and illness. Plan: * Treatment: 2. W eight loss L AB: PROFILE, FASTING (COMPREHENSIVE METABOLIC) L AB: TSH (THYROID STIMULATING HORMONE) L AB: CBC w DIFF L AB: FREE T3 (FT3) L AB: Lipid Panel L AB: Free T4 (Free Thyroxine) 3. O thers Continue Wixela Inhub Aerosol Powder Breath Activated, 250-50 MCG/ACT, INHALE 1 PUFF BY MOUTH TWICE A DAY. * Procedure Codes: * Preventive Medicine: Counseling: S moking/Tobacco Use Patient counseled on the dangers of tobacco use and urged to quit. 0 11/20/2024 COPD Care Plan: P atient Lifestyle Goals B e able to be more active with friends and family, Reduce number of ED and hospitalizations, Relieve symptoms and improve quality of life. T reatment Goals E xercise to help whole body, including lungs, Eat a nutritious diet and increase water consumption to 6-8 glasses a day. B arriers n o barriers. S elf-Managment Goals E at a healthy diet. * Follow Up: 6 Weeks (Reason: OV) * Images: * Sign off status: Completed true * Provider: Yoselyn Armando MD Date: 0 11/20/2024 Generated for Janny mesa/Faxing/eTransmitting on: 1 04:46 PM EDT History and Physical Notes [...] bruit, thyroid normal HEART: no clicks, gallops, murmurs, or rubs, regular rhythm, S1, S2 normal, [...] unremark able, no clubbing, cyanosis or edema, Healed scar back of neck, rectangular area of muscle loss, upper back, LYMPH NODES: no enlarged lymph no kennedy,spleen normal RECTAL EXAM: not examined PSYCH: alert, oriented, moo d depressed ORAL CAVITY: normal, unremarkable
--- OUTSIDE RECORDS SUMMARY | 2025-01-02 06:15 | XMS_ITS ---
Author Organization Arnaud Armando III, MD Address [address] [place] [address] Care Team Providers Care Clinical Rehabilitation Coordinator Name Role Phone Dr. Arnaud Armando III Primary Care Provider Allergies Allergen (clinical drug ingredient) Drug/Non Drug Allergy documented on EMR Reaction Allergy Type Onset Date Status No Known Drug Allergy Unknown Drug Allergy Active REASON FOR VISIT Recent TAVR, aortic valve, Aortic stenosis, repaired, Cardiomyopathy, Hyperlipidemia, COPD, Asthma,History of Hodgkin's disease, Radiation fibrosis upper back muscles, Hypertension Medications Medication SIG (Take, Route, Frequency, Duration) Notes Start Date End Date Status Wixela Inhub 250-50 MCG/ACT INHALE 1 PUF F BY MOUTH TWICE A DAY Active Krill Oil 500 MG as directed Orally Active Vitamin E 400 UNIT 1 tablet Orally twic e a day Active Xarelto 20 MG 1 tablet with food O rally Once a day Active Entresto 24-26 MG 1 tablet Orally Twic e a day Active Rosuvastatin Calcium 20 MG 1 tablet Oral ly Once a day Active Carvedilol 17 MG 1 tablet with food O rally Twice a day Active Social History Tobacco [...] non-user Ex-cigaret te smoker Vital Signs Temperature 98.4 degrees Fahrenheit 01/03/20 25 Blood pressure systolic 120 mm Hg 01/03/20 25 Blood pressure diastolic 73 mm Hg 025 Heart Rate 70 /min 01/02/2025 Height 70 in 01/02/2025 Weight 164 lbs 01/02/2025 BMI 23.53 kg/m2 01/02/2025 Encounters Encounter Location Date Provider Diagnosis Arnaud Armando III, MD [address] [place] [address] [place] [address] 01/02/2025 Arnaud Armando Aortic stenosis Q25. 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 The new valve appears to be working well. 01/02/2025 Anxiety (ICD-10 - F41.9) His anxiety is well controlled at this time. No additional therapy is necessary. 01/02/2025 Hodgkin's disease (ICD-10 - C81.90) There is no sign of a new primary lymphoma. 01/02/2025 Other and unspecified hyperlipidemia (ICD-10 - E78.5) Her recent lipid profile shows good control of his lipids in no change in his regimen was needed. 01/02/2025 Asthma (ICD-10 - J45.909) He is breathing comfortably. No wheezes are heard on examination. No change in his regimen as needed. His COPDD is mild. 01/02/2025 Radiation fibrosis of soft tissue from therapeutic [...] long-term control substances which are habit forming. 01/02/2025 Overweight (ICD-10 - E66.3) His body mass index is 25.54. I recommended stabilizing his weight at this level and then gradually reducing it over the summer time. 01/02/2025 Essential (primary) hypertension (ICD-10 - I10) His blood pressure today is normal and well controlled and no change in his regimen was needed. 01/02/2025 BPH (benign prostatic hyperplasia) (ICD-10 - N40.0) He rises from sleep at most once a night to urinate. We have discussed his options for treatment. We reviewed lifestyle modifications he can make to decrease nocturia. Plan Of Treatment Medication Medication Name Sig Start Date Stop Date Notes Wixela Inhub 250-50 MCG/ACT INHALE 1 PUF F BY MOUTH TWICE A DAY Krill Oil 500 MG as directed Orally Vitamin E 400 UNIT 1 tablet Orally twice a day Xarelto 20 MG 1 tablet with food O rally Once a day Entresto 24-26 MG 1 tablet Orally Twice a day Rosuvastatin Calcium 20 MG 1 tablet Orally Once a day Carvedilol 17 MG 1 tablet with food O rally Twice a day Pending Test Test Name Order Date PROFILE, FASTING (COMPREHENSIVE METABOLI C) 01/02/2025 PSA, TOTAL 01/02/2025 CBC w DIFF 01/02/2025 Lipid Panel 01/02/2025 Next Appt Details Follow Up: 4 Months, Reason: OV Provider Name:Arnaud Armando , 05/04/2025 09:30:00 AM, [address] [place] [address] , [address], [place], [address], Provider Name:Arnaud Armando , 07/22/2025 09:30:00 AM, [address] [place] [address] [address], [place], [address], Progress Notes * Nahed ANDERSONOB:1955 ([age] yo M)Acc No.[id number]:01/02/2025 Progress Notes Patient: Nicholas CROCKETT Provider: Yoselyn Armando MD :1955 A ge:69 Y S ex:Male Date:01/02/2025 Address:[address] [place], [place] [id number] Subjective: * Chief Complaints: * R ecent TAVR, aortic valveAortic stenosis, repairedCardiomyopathyHyperlipidemiaCOPDAsthmaHistory of Hodgkin's diseaseRadiation fibrosis upper back musclesHypertension * HPI: C OVID-19 Screening: He returns to the office for comprehensive medical management. He has had his aortic valve replaced and repaired. He is much less short of breath and tolerate exertion normally now. He is quite pleased with the result. He continues to have pain and weakness in his neck muscles but continues to exercise. He is anticoagulated but has had no bleeding. He rises from sleep once or twice a night to urinate. He has had no chest pain. Questions H ave you had any new onset fever, chills, cough, congestion, sore throat, shortness of breath, muscle aches? N o * ROS: G eneral/Constitutional: pain n humble. C hills d enies. F atigue a dmits. F ever d enies. E NT: Decreased hearing d enies. R espiratory: Cough d enies. C ardiovascular: Chest pain with exertion d enies. D yspnea on exertion?denies. S hortness of breath d enies. G astrointestinal: Constipation o ccasional. D ecreased appetite d enies. D iarrhea d enies. H eartburn d enies. N ausea d enies. R ectal bleeding d enies. V omiting d enies. H ematology: bruising d enies. p etechiae d enies. S wollen glands n one have been noted. G enitourinary: Frequent urination o nce a night. M usculoskeletal: Muscle aches N humble and bilateral upper back. P ainful joints n humble. S ciatica d enies. W eakness N humble and upper back muscles. ? S kin: Itching d enies. R janice [...] x-cigarette smoker H e was born in [place]. He is and has 3 children. He [...] * Vitals: H t: 70, Wt:164, BMI:23.53, BP:120/73, HR:70, Temp:98.4, Ht-cm: 177.8, Wt-k.39. * P ast Orders: I maging:CT chest wo con (Order Date - 10/15/2024) (Performed Date - 10/15/2024) * Examination: G eneral Examination: GENERAL APPEARANCE: [...] e xtremities unremarkable, no clubbing, cyanosis or edemaLarge rectangular area of muscle atrophy midline upper back, neck weakness. PERIPHERAL PULSES: n ormal. NEUROLOGIC: a lert and oriented, cranial nerves 2-12 grossly intact, deep tendon reflexes 2+ symmetrical, motor strength normal upper and lower extremities, sensory exam intact. PSYCH: a lert, oriented, anxious appearing, mood depressed.? Assessment: * Assessment: 1. A nxiety - F41.9 (Primary) N otes :His anxiety is well controlled at this time. No additional therapy is necessary. 2 . A ortic stenosis - Q25.3 N otes :He had the TAVR at [facility] September 30, 2024. The new valve appears to be working well. 3 . H odgkin's disease - C81.90 [...] which are habit forming. 7 . O verweight - E66.3 N otes :His body mass index is 25.54. I recommended stabilizing his weight at this level and then gradually reducing it over the summer time. 8 . E ssential (primary) hypertension - I10 N otes :His blood pressure today is normal and well controlled and no change in his regimen was needed. 9 . B PH (benign prostatic hyperplasia) - N40.0 N otes :He rises from sleep at most once a night to urinate. We have discussed his options for treatment. We reviewed lifestyle modifications he can make to decrease nocturia. Plan: * Treatment: 2. O ther and unspecified hyperlipidemia L AB: PROFILE, FASTING (COMPREHENSIVE METABOLIC) L AB: PSA, TOTAL L AB: CBC w DIFF L AB: Lipid Panel 3. O verweight L AB: PROFILE, FASTING (COMPREHENSIVE METABOLIC) L AB: PSA, TOTAL L AB: CBC w DIFF L AB: Lipid Panel 4. B PH (benign prostatic hyperplasia) L AB: PROFILE, FASTING (COMPREHENSIVE METABOLIC) L AB: PSA, TOTAL L AB: CBC w DIFF L AB: Lipid Panel 5. O thers Continue Wixela Inhub Aerosol Powder Breath Activated, 250-50 MCG/ACT, INHALE 1 PUFF BY MOUTH TWICE A DAY. * Procedure Codes: * Preventive Medicine: COPD Care Plan: P atient Lifestyle Goals R elieve symptoms and improve quality of life, Reduce number of ED and hospitalizations, Be able to be more active with friends and family. T reatment Goals E at 4-5 small meals throughout the day, Eat a nutritious diet and increase water consumption to 6-8 glasses a day, Exercise to help whole body, including lungs. B arriers n o barriers. S elf-Managment Goals G et an air purifier for the rooms you are in the most, Eat a healthy diet. * Follow Up: 4 Months (Reason: OV) * Images: * Sign off status: Completed true * Provider: Yoselyn Armando MD Date: 0 01/02/2025 Generated for Janny mesa/Ed/eTransmitting on: 1 04:46 PM EDT History and [...] extremities unremark able, no clubbing, cyanosis or edemaLarge rectangular area of muscle atrophy midline upper back, neck weakness LYMPH NODES: no enlarged lymph no kennedy,spleen normal RECTAL EXAM: not examined PSYCH: alert, oriented, anx ious appearing, mood depressed ORAL CAVITY: normal, unremarkable
--- OUTSIDE RECORDS SUMMARY | 2025-02-17 07:30 | XMS_ITS ---
Author Organization Arnaud Armando III, MD Address [address] [place] [address] Care Team Providers Care Parts Puller Name Role Phone Dr. Arnaud Armando III [...] Problem Status W/U Status Risk Notes Problem [id number] Hematoma (T14.8XXA) Active confirmed We are going [...] Date Provider Diagnosis Arnaud Armando III, MD [address] [place] [address] [place] [address] 02/17/2025 Arnaud Armando Aortic stenosis Q25. 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 The new valve [...] today. He is seen regularly by the log carrier operator. He is doing much better on the [...] Appt Details Follow Up: call office [place] with update on how he is feeling, Reason: as scheduled Provider Name:Arnaud Armando , 05/04/2025 09:30:00 AM, [address] [place] [address] [address], [place], [phone], Provider Name:Arnaud Armando , 07/22/2025 09:30:00 AM, [address] [place] [address] [address], [place], [address], Progress Notes * Nahed ANDERSONOB:1955 ([age] yo M)Acc No.[id number]:02/17/2025 Patient: Nicholas CROCKETT Provider: Yoselyn Armando MD :1955 A ge:69 Y S ex:Male Date:02/17/2025 Address:[address] [place] [id number] Subjective: * Chief Complaints: * M ass [...] x-cigarette smoker Jos mack was born in [place]. He is and has 3 children. He [...] N otes :He had the TAVR at [facility] September 30, 2024. The new valve appears to be working well. 3 . C ardiomyopathy - I42.9 N otes :His cardiomyopathy is compensated and there was no sign of congestive heart failure today. He is seen regularly by the log carrier operator. He is doing much better on the [...] MD Date: 0 02/17/2025 Generated for Janny mesa/Ed/Stepan on: 04:47 PM EDT History and Physical Notes * [...]
--- OUTSIDE RECORDS SUMMARY | 2025-04-16 16:46 | XMS_ITS | Clinical Summary ---
Author Organization [facility] Address [address] [place] [phone] Phone Care Team Providers Care Solidworks Designer Name Role Phone Unavailable Primary Care Provider Unavailabl e Social History Tobacco Use Types Packs/Day Years Used Date Smoking Tobacco: Never Assessed Sex and Gender Information Value Date Recorded Sex Assigned at Not on file Legal Sex Male 11:51 PM EST Gender Identity Not on file Sexual Orientation Not on file Plan of Treatment Health Maintenance Due Date Last Done Comments Colorectal Cancer Screening: Colonoscopy 1955 Zoster Vaccines (1 of 2) 10/10/1974 Pneumococcal Vaccine: 50+ Years (2 of 2 - PCV) 06/20/2014 06/20/2013 RSV Immunization Adult Patients (1 - Risk 60-74 years 1-dose series) 2015 COVID-19 Vaccine (3 - Moderna risk series) 12/25/2020 11/27/2020, 10/29/2020 Depression Screening 07/16/2024 Abdominal Aortic Aneurysm (AAA) Screen 07/30/2024 Cholesterol Screening (Lipid Panel) 07/30/2024 Falls Risk Assessment 07/30/2024 Hepatitis C Screening 07/30/2024 Medicare Annual Wellness Visit 07/30/2024 Social Influencers of Health Screening 07/30/2024 Hypertension/CHF/CAD Annual BMP Blood Test 07/31/2024 Influenza Vaccine (#1) 2025 , 05/02/2018, 04/24/2017, Additional history exists DTaP,Tdap,and Td [...]
--- OUTSIDE RECORDS SUMMARY | 2025-04-16 16:47 | XMS_ITS | Patient Health Record ---
Author Organization Arnaud Armando III, MD Address [address] [place] [address] Care Team Providers Care Business Development Professional Name Role Phone Dr. 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) Reviewed date:09/18/2024 01:37:21 PM Interpretation: Performing Lab: [...] Prealbumin Reviewed date:07/22/2024 05:18:01 PM Interpretation: Performing Lab:[facility], [address] [place] [id number] Notes/Report: FAX RESULTS TO [phone] Prealbumin 24.0 20-40 mg/dL Free T4 (Free Thyroxine) Reviewed date:07/22/2024 05:18:01 PM Interpretation: Performing Lab:[facility], [address] [place] [address] Notes/Report: FAX RESULTS TO [phone] Free T4 (Free Thyroxine) 1.15 0.71-1.85 ng/dL US thyroid Reviewed date:08/22/2024 10:11:23 AM Interpretation: Performing Lab: Notes/Report: Thyroid Stimulating Hormone Reviewed date:07/22/2024 05:18:01 PM Interpretation: Performing Lab:[facility], [address] [place] [id number] Notes/Report: FAX RESULTS TO [phone] Thyroid Stimulating Hormone 2.68 0.32-4.0 uIU/mL Note: A sustained TSH level above 2.5 uIU/mL may warrant further investigation. TSH 3rd Generation ([facility]) CT chest wo con Reviewed date:12/14/2024 08:17:31 PM Interpretation: Performing Lab: Notes/Report: [address] [place] [address] CT Scan Report Signed Patient: Nicholas nAderson MR#: [id number] : 1955 Acct:[id number] Age/Sex: 69 / M ADM Date: 10/14/24 Loc: HO.CT Attending Dr: Jose Corey MD Ordering Physician: Jose Corey MD Date of Service: 10/14/24 Procedure(s): CT chest wo IV con Accession Number(s): [id number] cc: Arnaud Armando MD; Jose Corey MD Report Number: [id number]: Total DLP = 150.00 mGy-cm CLINICAL HISTORY: [...] Linn MD Signed By: <Electronically signed by Prkaash Linn MD in OV> 10/15/24 1429 DD/ 1428 TD/TT: 10/15/24 1428 Marina Sales And Service Supervisor: [place] [address] CT Scan Report Signed Patient: Nicholas Anderson MR#: [id number] : 1955 Acct:[id number] Age/Sex: 69 / M ADM Date: 10/14/24 Loc: HO.CT Attending Dr: Jose Corey MD Ordering Physician: Jose Corey MD Date of Service: 10/14/24 Procedure(s): CT odalis [facility] wo IV con Accession Number(s): [id number] cc: Arnaud Armando MD; Jose Coery MD Report Number: [id number]: Total DLP = 150.00 mGy-cm CLINICAL HISTORY: [...] OV> 10/15/24 1429 DD/ 1428 TD/TT: 10/15/24 1428 Marina Sales And Service Supervisor: Reason For Referral No Information Medications Medication SIG (Take, Route, Frequency, Duration) Notes Start Date End Date Status Rosuvastatin Calcium 20 MG 1 tablet Oral [...] food O rally Twice a day Active Immunizations Vaccine Route Administration [...] Problem Status W/U Status Risk Notes Problem 9830717 Former smoker (Z87.891) Active confirmed He is highly motivated not to smoke. He has a plan to prevent relapse an time of stress and illness. Problem 856593565 Asthma (J45.909) Active confirmed He is breathing comfortably. No wheezes are heard on examination. No change in his regimen as needed. His COPDD is mild. Problem 660277453 Overweight (E66.3) Active confirmed His body mass index is 25.54. I recommended stabilizing his weight at this level and then gradually reducing it over the summer time. Problem Weight loss (243373183) Weight loss (R63.4) Active confirmed His BMI is now 23. Her continue to watch his weight to see if it becomes under weight. A thyroid evaluation has been ordered. Problem 82510012 Anxiety (F41.9) Active confirmed His anxiety is well controlled at this time. No additional therapy is necessary. Problem Essential hypertension (62745211) Essential (primary) hypertension (I10) Active confirmed His blood pressure today is normal and well controlled and no change in his regimen was needed. Problem Benign prostatic hyperplasia (359131763) BPH (benign prostatic hyperplasia) (N40.0) Active confirmed He rises from sleep at most once a night to urinate. We have discussed his options for treatment. We reviewed lifestyle modifications he can make to decrease nocturia. Problem 910273537 Anticoagulated (Z79.01) Active confirmed He told me tokiara y that he has stopped taking his xarelto. He dislikes the cost and does not think he needs it. He was adamant about not restarting it.I urged him to speak to the information technology analyst about this at the upcoming visit. Problem 08360641 COPD (chronic obstructive pulmonary disease) (J44.9) Active confirmed He is not smoking and his COPD is mild. No change in his therapy was needed. Problem Thyroid nodule (263957208) Thyroid nodule (E04.1) Active confirmed A significant thyroid nodule in the left lobe was an incidental finding on recent imaging for his heart. He has been losing weight and thyroid function tests have been ordered as well as an ultrasound of the thyroid gland. Problem 96315088 Cardiomyopathy (I42.9) Active confirmed His cardiomyopathy is compensated and there was no sign of congestive heart failure today. He is seen regularly by the information technology analyst. He is doing much better on the entresto. Problem 28832998 Other and unspecified hyperlipidemia (E78.5) Active confirmed Her recent lipi d profile shows good control of his lipids in no change in his regimen was needed. Problem 501993270 Hodgkin's disease (C81.90) Active confirmed There is no sign of a new primary lymphoma. Problem 37600372 Aortic stenosis (Q25.3) Active confirmed He had the TAVR at [facility] September 30, 2024. The new valve appears to be working well. 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 Problem 20685318 Hyperlipidemia, unspecified hyperlipidemia type (E78.5) Active confirmed Comprehensive blood work is not available today. A fasting lipid profile has been ordered. Problem 859516294 Hematoma (T14.8XXA) Active confirmed We are going to observe this with our treatment as it seems to be improving. He is going to notify me if there is any adverse change. Problem 250197271 Positive colorectal cancer screening using Cologuard test (R19.5) Active confirmed He has had a colonoscopy that did not show a malignancy. Several polyps were removed. He had no complications afterward. Problem 038149434 Nonrheumatic aortic valve insufficiency (I35.1) Active confirmed He is currently be considered for TAVR. Vital Signs Heart Rate 73 /min 02/17/2025 Temperature 98.4 degrees Fahrenheit 02/17/2025 Blood pressure diastolic 95 mm Hg 02/17/2025 Height 70 in 02/17/2025 Blood pressure systolic 133 mm Hg 02/17/2025 Weight 169 lbs 02/17/2025 BMI 24.25 kg/m2 02/17/2025 Encounters Encounter Location Date Provider Diagnosis Arnaud Armando III, MD [address] [place] [address] [place] [address] 05/15/2024 Arnaud Armando Aortic stenosis Q25. 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 3 [...] procedure L59.9 and Essential (primary) hypertension I10 Arnuad Armando III, MD [address] [place] [address] [place] [address] 07/30/2024 Arnaud Armando Aortic stenosis Q25. 3 ; Cardiomyopathy I42.9 ; Hodgkin's disease C81.90 ; Other and unspecified hyperlipidemia E78.5 ; Asthma J45.909 ; COPD (chronic obstructive pulmonary disease) J44.9 ; Neuromuscular disease G70.9 ; Pulmonary nodules R91.8 and Thyroid nodule E04.1 Arnaud Armando III, MD [address] [place] [address] [place] [address] 08/13/2024 Arnaud Armando Aortic stenosis Q25. 3 ; Hodgkin's disease C81.90 ; Asthma J45.909 ; COPD (chronic obstructive pulmonary disease) J44.9 ; Neuromuscular disease G70.9 and Former smoker Z87.891 Arnaud Armando III, MD [address] [place] [address] [place] [address] 09/18/2024 Arnaud Armando Aortic stenosis Q25. 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 3 ; Weight loss R63.4 ; Cardiomyopathy I42.9 ; Hodgkin's disease C81.90 ; COPD (chronic obstructive pulmonary disease) J44.9 ; Asthma J45.909 ; Essential (primary) hypertension I10 and Former smoker Z87.891 Arnaud Armando III, MD [address] [place] [address] [place] [address] 01/02/2025 Arnaud Armando Aortic stenosis Q25. 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 05/15/2024 Aortic stenosis (ICD-10 - Q25.3) He will continue to see the information technology analyst and appropriate intervals. He would be a good medical candidate for cardiac surgery if necessary.Appointment to see his information technology analyst this month. 07/21/2024 Aortic stenosis (ICD-10 - Q25.3) He will continue to see the information technology analyst and appropriate intervals. He would be a good medical candidate for cardiac surgery if necessary.Appointment to see his information technology analyst this month. 07/21/2024 Nonrheumatic aortic valve insufficiency (ICD-10 - I35.1) He is currently be considered for TAVR. 07/30/2024 Cardiomyopathy (ICD-10 - I42.9) His cardiomyopathy is compensated and there was no sign of congestive heart failure today. He is seen regularly by the information technology analyst. He is doing much better on the entresto. 07/30/2024 Aortic stenosis (ICD-10 - Q25.3) He will continue to see the information technology analyst and appropriate intervals. He would be a good medical candidate for cardiac surgery if necessary.Appointment to see his information technology analyst this month. 08/13/2024 Hodgkin's disease (ICD-10 - [...] will proceed to the TAVR at [facility] September 30, 2024. I found no contraindication to the procedure today. 11/20/2024 Weight loss (ICD-10 - R63.4) His BMI is now 23. Her continue to watch his weight to see if it becomes under weight. A thyroid evaluation has been ordered. 11/20/2024 Aortic stenosis (ICD-10 - Q25.3) He had the TAVR at [facility] September 30, 2024. The new valve appears to be working well. 01/02/2025 Anxiety (ICD-10 - F41.9) His anxiety is well controlled at this time. No additional therapy is necessary. 01/02/2025 Aortic stenosis (ICD-10 - Q25.3) He had the TAVR at [facility] September 30, 2024. The new valve appears to be working well. 02/17/2025 Aortic stenosis (ICD-10 - Q25.3) He had the TAVR at [facility] September 30, 2024. The new valve appears to be working well. 02/17/2025 Hematoma (ICD-10 - T14.8XXA) We are going to observe this with our treatment as it seems to be improving. He is going to notify me if there is any adverse change. 05/15/2024 BPH (benign prostatic hyperplasia) (ICD-10 - [...] change in his therapy was needed. 11/20/2024 Cardiomyopathy (ICD-10 - I42.9) His cardiomyopathy is compensated and there was no sign of congestive heart failure today. He is seen regularly by the information technology analyst. He is doing much better on the entresto. 01/02/2025 Hodgkin's disease (ICD-10 - C81.90) There is no sign of a new primary lymphoma. 02/17/2025 Cardiomyopathy (ICD-10 - I42.9) His cardiomyopathy is compensated and there was no sign of congestive heart failure today. He is seen regularly by the information technology analyst. He is doing much better on the [...] today. He is seen regularly by the information technology analyst. He is doing much better on the entresto. 11/20/2024 Hodgkin's disease (ICD-10 - C81.90) There is no sign of a new primary lymphoma. 01/02/2025 Other and unspecified hyperlipidemia (ICD-10 - E78.5) Her recent lipid profile shows good control of his lipids in no change in his regimen was needed. 02/17/2025 COPD (chronic obstructive pulmonary disease) (ICD-10 [...] today. He is seen regularly by the information technology analyst. He is doing much better on the [...] as needed. His COPDD is mild. 11/20/2024 COPD (chronic obstructive pulmonary disease) (ICD-10 - J44.9) He is not smoking and his COPD is mild. No change in his therapy was needed. 01/02/2025 Asthma (ICD-10 - J45.909) He is breathing comfortably. No wheezes are heard on examination. No change in his regimen as needed. His COPDD is mild. 02/17/2025 Asthma (ICD-10 - J45.909) He is [...] long-term control substances which are habit forming. 11/20/2024 Asthma (ICD-10 - J45.909) He is [...] control substances which are habit forming. 02/17/2025 Radiation fibrosis of soft tissue from [...] long-term control substances which are habit forming. 05/15/2024 Asthma (ICD-10 - J45.909) He is [...] change in his regimen was needed. 11/20/2024 Essential (primary) hypertension (ICD-10 - I10) His blood pressure today is normal and well controlled and no change in his regimen was needed. 01/02/2025 Overweight (ICD-10 - E66.3) His body mass index is 25.54. I recommended stabilizing his weight at this level and then gradually reducing it over the summer time. 02/17/2025 Former smoker (ICD-10 - Z87.891) He is highly motivated not to smoke. He has a plan to prevent relapse an time of stress and illness. 05/15/2024 Radiation fibrosis of soft tissue from [...] relapse an time of stress and illness. 01/02/2025 Essential (primary) hypertension (ICD-10 - I10) His blood pressure today is normal and well controlled and no change in his regimen was needed. 05/15/2024 HTN (hypertension) (ICD-10 - I10) His blood pressure is normal and well controlled and no change in his regimen was needed today.Today's blood pressure [id number]. 07/21/2024 Asthma (ICD-10 - J45.909) He is [...] relapse an time of stress and illness. 01/02/2025 BPH (benign prostatic hyperplasia) (ICD-10 - N40.0) He rises from sleep at most once a night to urinate. We have discussed his options for treatment. We reviewed lifestyle modifications he can make to decrease nocturia. 07/21/2024 Other and unspecified hyperlipidemia (ICD-10 - [...] Treatment Pending Test Test Name Order Date PROFILE, FASTING (COMPREHENSIVE METABOLI C) 11/20/2024 PROFILE, FASTING (COMPREHENSIVE METABOLI C) 01/02/2025 TSH (THYROID STIMULATING HORMONE) 2024 PSA, TOTAL 01/02/2025 CBC w DIFF 11/20/2024 CBC w DIFF 01/02/2025 FREE T3 (FT3) 11/20/2024 Lipid Panel 01/02/2025 Lipid Panel 11/20/2024 Free T4 (Free Thyroxine) 11/20/2024 Next Appt Details Provider Name:Arnaud Armando , 05/04/2025 09:30:00 AM, [address] [place] [address] [address], [place], [address], Provider Name:Arnaud Armando , 07/22/2025 09:30:00 AM, [address] [place] [address] [address], [place], [address], Insurance Providers Payer Name Payer Address Payer Phone Subscriber Number Group Number Insured Name Patient Relationship to Insured Coverage Start Date Coverage End Date [facility] [address] [facility] [address] [place] [phone] [id number] Nicholas Anderson Self - patient is the insured 9 MEDICARE NGS [address] [facility] [place] [address] [id number] Nicholas Anderson Self - patient is the insured Medical (General) History Medical History History ICD Code hypertension hyperlipidemia Hodgkins disease asthma anxiety 1974 osteoblastoma cervical vertebra thoracic muscle weakness noN ischemic cardiomyopathy aortic stenosis Last Bundle-branch block Aortic Stenosis, Aortic Insufficiency, H odgkin's disease, Pacemaker Surgical History Surgery Date(Month/Year) No history pacemaker 08/04 angioplasty 05/2019 resection cervical osterblastoma 1974 Hospitalization History Reason Date(Month/Year) No history
--- OUTSIDE RECORDS SUMMARY | 2025-04-16 16:47 | XMS_ITS | Patient Health Record ---
Author Organization [facility] Address [address] [place] [address] Care Team Providers Care Wallcovering Hanger Name Role Phone Arnaud Armando MD Primary [...] Problem Status W/U Status Risk Notes Problem 177858425 longterm (curre nt) use of anticoagulants (Z79.01) Active confirmed Problem 569973599 Abnormal finding s in stool (R19.5) Active confirmed Plan Of Treatment Future Test Test Name Order Date COLONOSCOPY 12/28/2022 Insurance Providers Payer Name Payer Address Payer Phone Subscriber Number Group Number Insured Name Patient Relationship to Insured Coverage Start Date Coverage End Date [facility] [address] [place] [phone] [id number] RENNY ANDERSON Self - patient is the insured Medical (General) History Medical History History ICD Code Hyperlipidemia Hodgkin's disease status pos t colectomy and radiation with radiation fibrosis Nonischemic cardiomyopathy Aortic stenosis BPH Anxiety Left bundle-branch block Asthma/COPD Surgical History Surgery Date(Month/Year) Splenectomy 1985 Pacemaker/defibrillator 2019
== END 2025-04-16 15:35 | disposition home or self-care (01) ==
LOC: HO.CT 15:34
PROVIDERS: PCP Internal Medicine Medical Oncology; Visit Provider Internal Medicine Pulmonary Disease
DX: R91.8 Other nonspecific abnormal finding of lung field (principal)
CPT/HCPCS: 71250

== ENCOUNTER → 2025-04-16 15:35 | Outpatient (BNV) | payer MEDICARE, SELFPAY | PROVIDERS: PCP Internal Medicine Medical Oncology; Visit Provider Radiology Vascular & Interventional Radiology | DX: R91.1 Solitary pulmonary nodule (principal) | CPT/HCPCS: 71250 ==

== ENCOUNTER 2025-05-12 09:04 | Outpatient (AMB) | payer MEDICARE, SELFPAY ==
--- OUTSIDE RECORDS SUMMARY | 2024-07-21 05:30 | XMS_ITS ---
Author Organization Arnaud Armando III, MD Address [address] [place] [address] Care Team Providers [employer] Specialist Name Role Phone Dr. Arnaud Armando III Primary Care Provider Allergies Allergen (clinical drug ingredient) Drug/Non Drug Allergy documented on EMR Reaction Allergy Type Onset Date Status No Known Drug Allergy Unknown Drug Allergy Active Results Component Value Reference Range Notes URINE DIP STICK Reviewed date:07/21/2024 09:34:25 AM Interpretation: Performing Lab: Notes/Report: SG 1.020 1.005 - 1.025 pH 8.0 5.0 - 9.0 GREGORY Negative Negative - NIT Negative Negative - PRO 30 Negative - Trace GLU Negative Negative - KET 5 Negative - UBG 0.2 0.1 - 1.8 DENISE Negative 0.2 - 1.3 BLD Negative Negative - Prealbumin Reviewed date:07/22/2024 05:18:01 PM Interpretation: Performing Lab:[facility], [address] [place] [phone] Notes/Report: FAX RESULTS TO [phone] Prealbumin 24.0 20-40 mg/dL Free T4 (Free Thyroxine) Reviewed date:07/22/2024 05:18:01 PM Interpretation: Performing Lab:[facility], [address] [place] [phone] Notes/Report: FAX RESULTS TO [phone] Free T4 (Free Thyroxine) 1.15 0.71-1.85 ng/dL US thyroid Reviewed date:08/22/2024 10:11:23 AM Interpretation: Performing Lab: Notes/Report: REASON FOR VISIT annual exam Medications Medication SIG (Take, Route, Frequency, Duration) Notes Start Date End Date Status Vitamin E 400 UNIT 1 tablet Orally twic e a day Active Krill Oil 500 MG as directed Orally Active Wixela Inhub 250-50 MCG/ACT INHALE 1 PUFF BY MOUTH TWICE A DAY Active Xarelto 20 MG 1 tablet with food Orally Once a day Active Entresto 24-26 MG 1 tablet Orally Twic e a day Active Amoxicillin-Pot Clavulanate 875-125 MG 1 tablet Orally every 12 hrs for 10 days 07/21/2024 07/31/2024 Active Rosuvastatin Calcium 20 MG 1 tablet Oral ly Once a day Active Carvedilol 17 MG 1 tablet with food Orally Twice a day Active Social History Tobacco Use: Social History Observation Description Date Details (start date - stop date) Former Smoker NA - NA Sex Assigned At : Social History Observation Description Sex Assigned At Male Tobacco Use/Smoking Question Answer Notes Patient is a former smoker How long has it been since you last smoked? > 10 years Additional Findings: Tobacco Non-User Ex-cigaret te smoker Tobacco Control (Standard) Question Answer Notes Tobacco use: Former smoker How long has it been since you last smoked? Grea ter than 10 years Additional Findings: Tobacco non-user Ex-cigaret te smoker AUDIT-C (Standard) Question Answer Notes Did you have a drink containing alcohol in the p ast year? No Points 0 Interpretation Negative Problems Problem Type SNOMED Code ICD Code Onset Dates Problem Status W/U Status Risk Notes Problem Weight loss (732037198) Weight loss (R63.4) Active confirmed His BMI is now 23. Her continue to watch his weight to see if it becomes under weight. A thyroid evaluation has been ordered. Problem [id number] Nonrheumatic aortic valve insufficiency (I35.1) Active confirmed He is currently be considered for TAVR. Vital Signs Temperature 98.2 degrees Fahrenheit 07/21/19 25 Blood pressure systolic 134 mm Hg 07/21/19 25 Blood pressure diastolic 73 mm Hg 025 Heart Rate 80 /min 07/21/2024 Height 70 in 07/21/2024 Weight 163 lbs 07/21/2024 BMI 23.39 kg/m2 07/21/2024 Encounters Encounter Location Date Provider Diagnosis Arnaud Armando III, MD [address] [place] [address] [place] [address] 07/21/2024 Arnaud Armando Aortic stenosis Q25. 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 He would be a good medical candidate for cardiac surgery if necessary.Appointment to see his product marketing specialist this month. 07/21/2024 Nonrheumatic aortic valve insufficiency (ICD-10 - I35.1) He is currently be considered for TAVR. 07/21/2024 Thyroid nodule (ICD-10 - E04.1) A significant thyroid nodule in the left lobe was an incidental finding on recent imaging for his heart. He has been losing weight and thyroid function tests have been ordered as well as an ultrasound of the thyroid gland. 07/21/2024 Weight loss (ICD-10 - R63.4) Has been losing weight steadily for unclear reasons. Recently nodules in his lung have been found. On evaluation will be conducted. 07/21/2024 Cardiomyopathy (ICD-10 - I42.9) His cardiomyopathy is compensated and there was no sign of congestive heart failure today. He is seen regularly by the product marketing specialist. He is doing much better on the entresto. 07/21/2024 Hodgkin's disease (ICD-10 - C81.90) There is no sign of a new primary lymphoma. 07/21/2024 COPD (chronic obstructive pulmonary disease) (ICD-10 - J44.9) He is not smoking and his COPD is mild. No change in his therapy was needed. 07/21/2024 Neuromuscular disease (ICD-10 - G70.9) He continues to complain of pain because of the weakness in his neck and back muscles which is from the radiation therapy he received many years ago for Hodgkin's disease. 07/21/2024 Asthma (ICD-10 - J45.909) He is breathing comfortably. No wheezes are heard on examination. No change in his regimen as needed. His COPDD is mild. 07/21/2024 Other and unspecified hyperlipidemia (ICD-10 - E78.5) Her recent lipid profile shows good control of his lipids in no change in his regimen was needed. 07/21/2024 Former smoker (ICD-10 - Z87.891) He is highly motivated not to smoke. He has a plan to prevent relapse an time of stress and illness. 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 He would like to be put on diazepam twice a day indefinitely as she has read on the Internet that this is helpful thing for muscle spasm. I negotiated a prescription for cyclobenzaprine instead. We discussed the use of long-term control substances which are habit forming. 07/21/2024 Essential (primary) hypertension (ICD-10 - I10) His blood pressure today is normal and well controlled and no change in his regimen was needed. Plan Of Treatment Medication Medication Name Sig Start Date Stop Date Notes Vitamin E 400 UNIT 1 tablet Orally twic e a day Krill Oil 500 MG as directed Orally Wixela Inhub 250-50 MCG/ACT INHALE 1 PUF F BY MOUTH TWICE A DAY Xarelto 20 MG 1 tablet with food O rally Once a day Entresto 24-26 MG 1 tablet Orally Twic e a day Amoxicillin-Pot Clavulanate 875-125 MG 1 tablet Orally every 12 hrs for 10 days 07/21/2024 07/31/2024 Rosuvastatin Calcium 20 MG 1 tablet Orally Once a day Carvedilol 17 MG 1 tablet with food O rally Twice a day Next Appt Details Follow Up: 1 Week, 7 to 10 d ays from now, Reason: Telehealth, To discuss the results of the TAVR conference and the patient's condition Provider Name:Arnaud Armando , 07/22/2025 09:30:00 AM, [address] [place] [address] [address] [facility] [place] [place], [phone], Progress Notes * Nahed ANDERSONOB:1955 ([age] yo M)Acc No.[id number]:07/21/2024 Progress Notes Patient: Nicholas CROCKETT Provider: Yoselyn Armando MD :1955 A ge:68 Y S ex:Male Date:07/21/2024 Address:[address] [place] [id number] Subjective: * Chief Complaints: * A nnual exam * HPI: D epression Screening: PHQ-9 L ittle interest or pleasure in doing things?Not at all F eeling down, depressed, or hopeless N ot at all T rouble falling or staying asleep, or sleeping too much M ore than half the days F eeling tired or having little energy N ot at all P oor appetite or overeating N ot at all F eeling bad about yourself or that you are a failure, or have let yourself or your family down N ot at all T rouble concentrating on things, such as reading the newspaper or watching television N ot at all M oving or speaking so slowly that other people could have noticed; or the opposite, being so fidgety or restless that you have been moving around a lot more than usual N ot at all T houghts that you would be better off or of hurting yourself in some way N ot at all T otal Score 2 I nterpretation M inimal Depression C OVID-19 Screening: dr kristine wing sent him to [facility]. Questions H ave you had any new onset fever, chills, cough, congestion, sore throat, shortness of breath, muscle aches? N o F all Risk Screening: Fall History H ave you had any falls with injury in the past year? N o H ave you had two or more falls in the past year? N o F all Risk Assessment: N o falls in the past year S SHARLENE Questions: SDOH Questions I n the past year have you been worried about losing your housing? N o I n the past year have you or any family members you live with been unable to get any of the following when it was really needed? Check all that apply: N one * : The patient is a 68-year-old male who has been experiencing shortness of breath, especially when walking up two to three flights of stairs. He has a history of aortic stenosis and aortic insufficiency, and has been evaluated for a potential aortic valve replacement. He has also been losing weight, which he attributes to the stress of recent medical tests and personal issues. The patient has a history of Hodgkin's disease, for which he received radiation therapy. He also has a pacemaker, which is functioning well. Recently, nodules were found on his lungs and thyroid during a cardiac catheterization. The patient is currently taking Xarelto. Blood Sugar Level is 117. He is extensively reviewed recently by cardiology and cardiac surgery at [facility].? He needs an aortic valve replacement. He is being presented at TAVR conference later this week to see if this is feasible. Otherwise he will have the valve replaced surgically. The imaging showed a nodule in the left lobe of his thyroid and ultrasound was recommended. Nodules were seen in his lungs as well some of which were bigger than 1 cm. I have ordered an ultrasound of the thyroid. Pulmonary nodules will be evaluated in view of his recent weight loss. The weight loss remains unexplained could be due to depression as his son is quite ill. It could be due to hyperthyroidism and blood work was ordered today. Malignancy is possible but no primary tumor has been found. In the future he may need a PET CT scan. The imaging also showed multiple areas in both lungs of tree in bud abnormality. He has a distinctly productive cough. He is bringing up thick white phlegm. I have given him an antibiotic to remove any bacterial process in his lungs prior to his cardiac procedure. A follow-up visit was arranged. * ROS: G eneral/Constitutional: pain N humble and back. C hills d enies. F atigue?admits. F ever d enies. E NT: Decreased hearing d enies. R espiratory: Cough d enies. C ardiovascular: Chest pain with exertion d enies. D yspnea on exertion?denies. S hortness of breath w ith exertion. G astrointestinal: Constipation d enies. D ecreased appetite d enies.?Diarrhea d enies. H eartburn d enies. N ausea d enies. R ectal bleeding?denies. V omiting d enies. H ematology: bruising d enies. p etechiae d enies. S wollen glands n one have been noted. G enitourinary: Frequent urination o nce a night. M usculoskeletal: Muscle aches d enies. P ainful joints d enies. S ciatica d enies. W eakness t hat is mild. S kin: Itching d enies. R janice d enies. S kin lesion(s)?denies. N eurologic: Difficulty speaking d enies. D izziness d enies.?Headache d enies. L ow back pain d enies. P sychiatric: Depressed mood w hich is moderate. 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 M other: 78 yrs, lung cancer, diagnosed with Cancer. S on(s): . S iblings: alive. S pouse: . 2 brother(s) - healthy. 1 son(s) , 1 daughter(s) - healthy. . He has an identical twin brother. Son due to Angiochleoblastoma. * Social History: T obacco Use: T obacco Use/Smoking P atient is a f ormer smoker H ow long has it been since you last smoked??> 10 years A dditional Findings: Tobacco Non-User E x-cigarette smoker Tobacco Control (Standard) T obacco use: F ormer smoker H ow long has it been since you last smoked??Greater than 10 years A dditional Findings: Tobacco non-user E x-cigarette smoker D rugs/Alcohol: D rugs H ave you used drugs other than those for medical reasons in the past 12 months? N o D rug/Alcohol: A PROSPER-C (Standard) D id you have a drink containing alcohol in the past year? N o P oints 0 I nterpretation N egative Jos mack was born in [place]. He is and has 3 children. He has a twin. * Medications: T akingWixela Inhub 250-50 MCG/ACT Aerosol Powder Breath Activated INHALE 1 PUFF BY MOUTH TWICE A DAY Krill Oil 500 MG Capsule as directed Orally Vitamin E 400 UNIT Tablet 1 tablet Orally twice a day Carvedilol 17 MG Tablet 1 tablet with food Orally Twice a day Rosuvastatin Calcium 20 MG Tablet 1 tablet Orally Once a day Entresto 24-26 MG Tablet 1 tablet Orally Twice a day Xarelto 20 MG Tablet 1 tablet with food Orally Once a day Medication List reviewed and reconciled with the patientTaking Wixela Inhub 250-50 MCG/ACT Aerosol Powder Breath Activated INHALE 1 PUFF BY MOUTH TWICE A DAY Taking Krill Oil 500 MG Capsule as directed Orally Taking Vitamin E 400 UNIT Tablet 1 tablet Orally twice a day Taking Carvedilol 17 MG Tablet 1 tablet with food Orally Twice a day Taking Rosuvastatin Calcium 20 MG Tablet 1 tablet Orally Once a day Taking Entresto 24-26 MG Tablet 1 tablet Orally Twice a day Taking Xarelto 20 MG Tablet 1 tablet with food Orally Once a day Medication List reviewed and reconciled with the patient * Allergies: N o Known Drug Allergyno[Allergies Verified] Objective: * Vitals: H t: 70, Wt:163, BMI:23.39, BP:134/73, HR:80, Temp:98.2, Wt-k.94. * P ast Orders: Lab:URINE DIP STICK * Collection Date 07/21/2024 07/18/2023 07/13/2022 Order Date 07/21/2024 07/18/2023 07/13/2022 Result: Normal SG 1.020 (Ref Range: 1.005 - 1.025) 1.020 (Ref Range: 1.005 - 1.025) 1.025 pH 8.0 (Ref Range: 5.0 - 9.0) 5.0 (Ref Range: 5.0 - 9.0) 5 GREGORY Negative (Ref Range: Negative -) Negative (Ref Range: Negative -) neg NIT Negative (Ref Range: Negative -) Negative (Ref Range: Negative -) neg PRO 30 (Ref Range: Negative - Trace) 15 (Ref Range: Negative - Trace) trace GLU Negative (Ref Range: Negative -) Negative (Ref Range: Negative -) normal KET 5 (Ref Range: Negative -) Negative (Ref Range: Negative -) neg UBG 0.2 (Ref Range: 0.1 - 1.8) 0.2 (Ref Range: 0.1 - 1.8) normal DENISE Negative (Ref Range: 0.2 - 1.3) Negative (Ref Range: 0.2 - 1.3) neg BLD Negative (Ref Range: Negative -) Negative (Ref Range: Negative -) neg Menstrating NR N/A n/a * Examination: G eneral Examination: GENERAL APPEARANCE: p leasant, well nourished, well developed, in no acute distress, Depressed gentleman. HEAD: a traumatic, normocephalic. EYES: e joselin, perrla, anicteric, conjugate. EARS: n ormal. NOSE: s eptum intact. ORAL CAVITY: n ormal, unremarkable. NECK/THYROID: n o jugular venous distention, no carotid bruit, thyroid nodule not palpable. LYMPH NODES: n o enlarged lymph nodes,spleen normal. SKIN: n o suspicious lesions, anicteric. HEART: n o clicks, gallops; 1/6 systolicmurmu; n o r ubs, regular rhythm, S1, S2 normal, no s3, or vascular bruits. LUNGS: , diminished breath sounds throughout, rhonchi on the LEFT, rhonchi on the RIGHT. BREASTS: no masses palpable bilaterally. ABDOMEN: b owel sounds normal, no ascites, no organomegaly, no mass. RECTAL EXAM: n ot examined. MUSCULOSKELETAL: e xtremities unremarkable, no clubbing, cyanosis or edema. PERIPHERAL PULSES: n ormal. NEUROLOGIC: a lert and oriented, cranial nerves 2-12 grossly intact, deep tendon reflexes 2+ symmetrical, motor strength normal upper and lower extremities, sensory exam intact. PSYCH: a lert, oriented, mood depressed. ? Assessment: * Assessment: 1. A ortic stenosis - Q25.3 (Primary) N otes :He will continue to see the product marketing specialist and appropriate intervals. He would be a good medical candidate for cardiac surgery if necessary.Appointment to see his product marketing specialist this month. 2 . N onrheumatic aortic valve insufficiency - I35.1 N otes :He is currently be considered for TAVR. 3. T hyroid nodule - E04.1 N otes :A significant thyroid nodule in the left lobe was an incidental finding on recent imaging for his heart. He has been losing weight and thyroid function tests have been ordered as well as an ultrasound of the thyroid gland. 4 . W eight loss - R63.4 N otes :Has been losing weight steadily for unclear reasons. Recently nodules in his lung have been found. On evaluation will be conducted. 5 . C ardiomyopathy - I42.9 N otes :His cardiomyopathy is compensated and there was no sign of congestive heart failure today. He is seen regularly by the product marketing specialist. He is doing much better on the entresto. 6 . H odgkin's disease - C81.90 N otes :There is no sign of a new primary lymphoma. 7 . C OPD (chronic obstructive pulmonary disease) - J44.9 N otes :He is not smoking and his COPD is mild. No change in his therapy was needed. 8 . N euromuscular disease - G70.9 N otes :He continues to complain of pain because of the weakness in his neck and back muscles which is from the radiation therapy he received many years ago for Hodgkin's disease. 9 . A sthma - J45.909 N otes :He is breathing comfortably. No wheezes are heard on examination. No change in his regimen as needed. His COPDD is mild. 1 0. O ther and unspecified hyperlipidemia - E78.5 N otes :Her recent lipid profile shows good control of his lipids in no change in his regimen was needed. 1 1. F ormer smoker - Z87.891 N otes :He is highly motivated not to smoke. He has a plan to prevent relapse an time of stress and illness. 1 2. R adiation fibrosis of soft tissue from therapeutic procedure - L59.9? Notes :He complained bitterly today of the weakness in his neck. He would like to be put on diazepam twice a day indefinitely as she has read on the Internet that this is helpful thing for muscle spasm. I negotiated a prescription for cyclobenzaprine instead. We discussed the use of long-term control substances which are habit forming. 1 3. E ssential (primary) hypertension - I10 N otes :His blood pressure today is normal and well controlled and no change in his regimen was needed. Plan: * Treatment: 2. T hyroid nodule L AB: TSH (THYROID STIMULATING HORMONE) L AB: Prealbumin (Collection Date & Time - 07/21/2024 10:28 AM) Value Reference Range P realbumin 24.0 20-40 - mg/dL ?LAB: Free T4 (Free Thyroxine) (Collection Date & Time - 07/21/2024 10:28 AM)* Value Reference Range F ree T4 (Free Thyroxine) 1.15 0.71-1.85 - ng/d L ?Imaging: US thyroid3.?Weight loss?LAB: TSH (THYROID STIMULATING HORMONE) ?LAB: Prealbumin (Collection Date & Time - 07/21/2024 10:28 AM)* Value Reference Range P realbumin 24.0 20-40 - mg/dL ?LAB: Free T4 (Free Thyroxine) (Collection Date & Time - 07/21/2024 10:28 AM)* Value Reference Range F ree T4 (Free Thyroxine) 1.15 0.71-1.85 - ng/d L 4.?Others? Continue Wixela Inhub Aerosol Powder Breath Activated, 250-50 MCG/ACT, INHALE 1 PUFF BY MOUTH TWICEA DAY;?Start Amoxicillin-Pot Clavulanate Tablet, 875-125 MG, 1 tablet, Orally, every 12 hrs, 10 days, 20 Tablet, Refills 0.?? * Labs: * L ab: URINE DIP STICK (Collection Date & Time - 07/21/2024) Value Reference Range S G 1.020 1.005 - 1.025 * p H 8.0 5.0 - 9.0 * L EU Negative Negative - * N IT Negative Negative - * P RO 30 Negative - Trace * G MISTY Negative Negative - * K ET 5 Negative - * U BG 0.2 0.1 - 1.8 * B IL Negative 0.2 - 1.3 * B LD Negative Negative - * Procedure Codes: 8 1002 URINE-NO MICRO * Preventive Medicine: COPD Care Plan: P atient Lifestyle Goals R elieve symptoms and improve quality of life, Reduce number of ED and hospitalizations, Be able to be more active with friends and family. T reatment Goals E at a nutritious diet and increase water consumption to 6-8 glasses a day, Exercise to help whole body, including lungs, Eat 4-5 small meals throughout the day. B arriers n o barriers. S elf-Managment Goals E at a healthy diet, Get an air purifier for the rooms you are in the most. * Follow Up: 1 Week, 7 to 10 days from now (Reason: Telehealth, To discuss the results of the TAVR conference and the patient's condition) * Images: * Sign off status: Completed true * Provider: Yoselyn Armando MD Date: 07/21/2024 Generated for Janny mesa/Ed/eTransmitting on: 10:05 AM EDT History and Physical Notes * HPI (History of Present Illness) Category Sub-Category Detail Notes Depression Screening PHQ-9 Little inte rest or pleasure in doing things: Not at all Feeling down, depressed, or hopeless: No t at all Trouble falling or staying a sleep, or sleeping too much: More than half the days Feeling tired or having little energy: N ot at all Poor appetite or overeating: Not at all Feeling bad about yourself o r that you are a failure, or have let yourself or your family down: Not at all Trouble concentrating on thi ngs, such as reading the newspaper or watching television: Not at all Moving or speaking so slowly that other people could have noticed; or the opposite, being so fidgety or restless that you have been moving around a lot more than usual: Not at all Thoughts that you would be b sun off or of hurting yourself in some way: Not at all Total Score: 2 Interpretation: Minimal Depression Fall Risk Screening Fall History Have you had any falls with injury in the past year?: No Have you had two or more falls in the year?: No Fall Risk Assessment:: No falls in the year COVID-19 Screening Questions Have you had any new onset fever, chills, cough, congestion, sore throat, shortness of breath, muscle aches?: No SDOH Questions SDOH Questions In the past year have you been worried about losing your housing?: No In the past year have you or any family members you live with been unable to get any of the following when it was really needed? Check all that apply:: None Examination Category Sub-Category Detail Notes General Examination GENERAL APPEARANCE: pleasant , well nourished, well developed, in no acute distress, Depressed gentleman HEAD: atraumatic, normocep halic EYES: eomi, perrla, anicte mini, conjugate EARS: normal NOSE: septum intact NECK/THYROID: no jugular venous di stention, no carotid bruit, thyroid nodule not palpable HEART: no clicks, gallops; 1/6 systolicmurmu; no rubs, regular rhythm, S1, S2 normal, no s3, or vascular bruits LUNGS: , diminished breath sounds throughout, rhonchi on the LEFT, rhonchi on the RIGHT ABDOMEN: bowel sounds normal, no ascites, no organomegaly, no mass NEUROLOGIC: alert and oriented, cranial nerves 2-12 grossly intact, deep tendon reflexes 2+ symmetrical, motor strength normal upper and lower extremities, sensory exam intact SKIN: no suspicious lesion s, anicteric PERIPHERAL PULSES: normal BREASTS: no masses palpable b ilaterally MUSCULOSKELETAL: extremities unremark able, no clubbing, cyanosis or edema LYMPH NODES: no enlarged lymph no kennedy,spleen normal RECTAL EXAM: not examined PSYCH: alert, oriented, moo d depressed ORAL CAVITY: normal, unremarkable
--- OUTSIDE RECORDS SUMMARY | 2024-07-22 05:39 | XMS_ITS ---
Author Organization Arnaud Armando III, MD Address [address] [place] [address] Care Team Providers Care Anthropologist Physical Name Role Phone Dr. Arnaud Armando III Primary Care Provider REASON FOR VISIT Message Social History Sex Assigned At : Social History Observation Description Sex Assigned At Male Encounters Encounter Location Date Provider Diagnosis Arnaud Armando III, MD [address] [place] [address] [place] [address] 07/22/2024 Arnaud Armando Plan Of Treatment Next Appt Details Provider Name:Arnaud Armando , 07/22/2025 09:30:00 AM, [address] [place] [address] [place], [address], Progress Notes * Nahed ANDERSONOB:1955 ([age] yo M)Acc No.[id number]:07/22/2024 Patient: Nicholas CROCKETT :1955 A ge:68 Y S ex:Male Address:[address] [place] [id number] * true * Date: Generated for Janny mesa/Ed/Edieitting on: 10:05 AM EDT
--- OUTSIDE RECORDS SUMMARY | 2024-07-30 10:00 | XMS_ITS ---
Author Organization Arnaud Armando III, MD Address [address] [place] [address] Care Team Providers Care Nuclear Chemistry Technician Name Role Phone Dr. Arnaud Armando III Primary Care Provider [phone] Allergies Allergen (clinical drug ingredient) Drug/Non Drug Allergy documented on EMR Reaction Allergy Type Onset Date Status No Known Drug Allergy Unknown Drug Allergy Active REASON FOR VISIT Telehealth Medications Medication SIG (Take, Route, Frequency, Duration) Notes Start Date End Date Status Xarelto 20 MG 1 tablet with food O rally Once a day Active Rosuvastatin Calcium 20 MG 1 tablet Oral ly Once a day Active Entresto 24-26 MG 1 tablet Orally Twic e a day Active Carvedilol 17 MG 1 tablet with food O rally Twice a day Active Vitamin E 400 UNIT 1 tablet Orally twic e a day Active Krill Oil 500 MG as directed Orally Active Wixela Inhub 250-50 MCG/ACT INHALE 1 PUF F BY MOUTH TWICE A DAY Active Social History Tobacco Use: Social History [...] Additional Findings: Tobacco non-user Ex-cigaret te smoker Vital Signs Height 70 in 07/30/2024 Weight 163 lbs 07/30/2024 BMI 23.39 kg/m2 07/30/2024 Encounters Encounter Location Date Provider Diagnosis Arnaud Armando III, MD [address] [place] [address] [place] [address] 07/30/2024 Arnaud Armando Aortic stenosis Q25. 3 ; Cardiomyopathy I42.9 ; Hodgkin's disease C81.90 ; Other and unspecified hyperlipidemia E78.5 ; Asthma J45.909 ; COPD (chronic obstructive pulmonary disease) J44.9 ; Neuromuscular disease G70.9 ; Pulmonary nodules R91.8 and Thyroid nodule E04.1 Assessments Encounter Date Diagnosis (ICD Code) Assessment Notes Treat ment Notes Treatment Clinical Notes 07/30/2024 Aortic stenosis (ICD-10 - Q25.3) He will continue to see the metrology engineer and appropriate intervals. He would be a good medical candidate for cardiac surgery if necessary.Appointmen t to see his metrology engineer this month. 07/30/2024 Cardiomyopathy (ICD-10 - I42.9) His cardiomyopathy is compensated and there was no sign of congestive heart failure today. He is seen regularly by the metrology engineer. He is doing much better on the entresto. 07/30/2024 Hodgkin's disease (ICD-10 - C81.90) There is no sign of a new primary lymphoma. 07/30/2024 Other and unspecified hyperlipidemia (ICD-10 - E78.5) Her recent lipid profile shows good control of his lipids in no change in his regimen was needed. 07/30/2024 Asthma (ICD-10 - J45.909) He is breathing comfortably. No wheezes are heard on examination. No change in his regimen as needed. His COPDD is mild. 07/30/2024 COPD (chronic obstructive pulmonary disease) (ICD-10 - J44.9) He is not smoking and his COPD is mild. No change in his therapy was needed. 07/30/2024 Neuromuscular disease (ICD-10 - G70.9) He continues to complain of pain because of the weakness in his neck and back muscles which is from the radiation therapy he received many years ago for Hodgkin's disease. 07/30/2024 Pulmonary nodules (ICD-10 - R91.8) 07/30/2024 Thyroid nodule (ICD-10 - E04.1) A significant thyroid nodule in the left lobe was an incidental finding on recent imaging for his heart. He has been losing weight and thyroid function tests have been ordered as well as an ultrasound of the thyroid gland. Plan Of Treatment Medication Medication Name Sig Start Date Stop Date Notes Xarelto 20 MG 1 tablet with food O rally Once a day Rosuvastatin Calcium 20 MG 1 tablet Orally Once a day Entresto 24-26 MG 1 tablet Orally Twice a day Carvedilol 17 MG 1 tablet with food O rally Twice a day Vitamin E 400 UNIT 1 tablet Orally twice a day Krill Oil 500 MG as directed Orally Wixela Inhub 250-50 MCG/ACT INHALE 1 PUF F BY MOUTH TWICE A DAY Next Appt Details Follow Up: 2 Weeks, Reason: Telehealth Provider Name:Arnaud Armando , 07/22/2025 09:30:00 AM, [address] [place] [address], [address], [address], Progress Notes * Nahed ANDERSONOB:1955 ([age] yo M)Acc No.[id number]:07/30/2024 Patient: Alexia Nicholas HUNTLEY Provider: Yoselyn Armando MD :1955 A ge:68 Y S ex:Male Date:07/30/2024 Address:[address] [place], [place] [id number] Subjective: * Chief Complaints: * T elehealth * HPI: * : This telehealth visit took place over 22 minutes with the patient at home and me in my office. He gave consent for billing. He has become short of breath with exertion which has been found to be due to aortic stenosis and aortic insufficiency. He has been seen at [facility] cardiology and a TAVR procedure has been recommended. A preoperative CT scan of the chest showed several pulmonary nodules. A thyroid nodule was also seen. An ultrasound of the thyroid has been ordered but not yet done. A pulmonary consultation was made and he saw Dr. Corey at [facility]. A PET CT scan was ordered and will be done in the near future. The patient reports no new findings or symptoms. Telehealth L ocation of provider rendering services: { ...} [address] [facility] [address] L ocation of patient: a ddress listed in demographics for today's visit P atient identification confirmed using: ALEXANDER Puga ame T elehealth method: T elephone only. Patient not visible to care provider. C onsent: P atient verbally consented to treatment, Patient verbally consented to billing insurance company, Patient informed of any privacy concerns related to method of visit T otal time spent with patient (mins) 1 5 * ROS: G eneral/Constitutional: pain N humble and shoulders, otherwise only normal aches and pains. C hills d enies. F atigue a dmits. F ever d enies. E NT: Decreased hearing d enies. R espiratory: Cough d enies. C ardiovascular: Chest pain with exertion d enies. D yspnea on exertion?denies. S hortness of breath w ith exertion. G astrointestinal: Constipation o ccasional. D ecreased appetite d enies. D iarrhea d enies. H eartburn d enies. N ausea d enies. R ectal bleeding d enies. V omiting d enies. H ematology: bruising d enies. p etechiae d enies. S wollen glands n one have been noted. G enitourinary: Frequent urination o nce a night. M usculoskeletal: Muscle aches d enies. P ainful joints d enies. S ciatica d enies. W eakness d enies. S kin: Itching d enies. R janice [...] dditional Findings: Tobacco non-user E x-cigarette smoker Jos mack was born in [place]. He is and has 3 children. He [...] tablet with food Orally Once a day Taking Wixela Inhub 250-50 MCG/ACT Aerosol Powder Breath [...] tablet with food Orally Once a day DiscontinuedAmoxicillin-Pot Clavulanate 875-125 MG Tablet 1 tablet Orally every 12 hrs , stop date 07/31/2024Medication List reviewed and reconciled with the patientDiscontinued Amoxicillin-Pot Clavulanate 875-125 MG Tablet 1 tablet Orally every 12 hrs , stop date 07/31/2024Medication List reviewed and reconciled with the patient * Allergies: N o Known Drug Allergyno[Allergies Verified] Objective: * Vitals: H t: 70, Wt:163, BMI:23.39, Ht-cm: 177.8, Wt-k.94. * P ast Orders: L ab:Thyroid Stimulating Hormone (Order Date - 07/21/2024) (Collection Date & Time - 07/21/2024 10:28 AM) Value Reference Range Thyroid Stimulating Hormone 2.68 0.32-4.0 - u IU/mL L ab:Free T4 (Free Thyroxine) (Order Date - 07/21/2024) (Collection Date & Time - 07/21/2024 10:28 AM) Value Reference Range Free T4 (Free Thyroxine) 1.15 0.71-1.85 - ng/ dL L ab:Prealbumin (Order Date - 07/21/2024) (Collection Date & Time - 07/21/2024 10:28 AM) Value Reference Range Prealbumin 24.0 20-40 - mg/dL Lab:URINE DIP STICK * Collection Date 07/21/2024 [...] Negative -) neg Menstrating NR N/A n/a Assessment: * Assessment: 1. A ortic stenosis - Q25.3 (Primary) N otes :He will continue to see the metrology engineer and appropriate intervals. He would be a good medical candidate for cardiac surgery if necessary.Appointment to see his metrology engineer this month. 2 . C ardiomyopathy - I42.9 N otes :His cardiomyopathy is compensated and there was no sign of congestive heart failure today. He is seen regularly by the metrology engineer. He is doing much better on the entresto. 3 . H odgkin's disease - C81.90 N otes :There is no sign of a new primary lymphoma. 4 . O ther and unspecified hyperlipidemia - E78.5 N otes :Her recent lipid profile shows good control of his lipids in no change in his regimen was needed. 5 . A sthma - J45.909 N otes :He is breathing comfortably. No wheezes are heard on examination. No change in his regimen as needed. His COPDD is mild. 6 . C OPD (chronic obstructive pulmonary disease) - J44.9 N otes :He is not smoking and his COPD is mild. No change in his therapy was needed. 7 . N euromuscular disease - G70.9 N otes :He continues to complain of pain because of the weakness in his neck and back muscles which is from the radiation therapy he received many years ago for Hodgkin's disease. 8 . P ulmonary nodules - R91.8 9 . T hyroid nodule - E04.1? Notes :A significant thyroid nodule in the left lobe was an incidental finding on recent imaging for his heart. He has been losing weight and thyroid function tests have been ordered as well as an ultrasound of the thyroid gland. Plan: * Treatment: 2. O thers Continue Wixela Inhub Aerosol Powder Breath Activated, 250-50 MCG/ACT, INHALE 1 PUFF BY MOUTH TWICE A DAY. * Procedure Codes: * Preventive Medicine: Counseling: S moking/Tobacco Use Patient counseled on the dangers of tobacco use and urged to quit. 0 07/30/2024 COPD Care Plan: P atient Lifestyle Goals R elieve symptoms and improve quality of life, Reduce number of ED and hospitalizations, Be able to be more active with friends and family. T reatment Goals E at a nutritious diet and increase water consumption to 6-8 glasses a day, Exercise to help whole body, including lungs. B arriers n o barriers. S elf-Managment Goals G et an air purifier for the rooms you are in the most, Eat a healthy diet. * Follow Up: 2 Weeks (Reason: Telehealth) * Images: * Sign off status: Completed true * Provider: Yoselyn Armando MD Date: 0 07/30/2024 Generated for Janny mesa/Ed/Edieitting on: 10:07 AM EDT History and Physical Notes * HPI (History of Present Illness) Category Sub-Category Detail Notes Telehealth Location of [facility] rendering services:: {...} [address] [facility] [address] Location of patient:: address listed in demographics for today's visit Patient identification confirmed using:: Name, Telehealth method:: Telephone only. Estella ent not visible to care provider. Consent:: Patient verbally c onsented to treatment, Patient verbally consented to billing insurance company, Patient informed of any privacy concerns related to method of visit Total time spent with patient (mins): 15
--- OUTSIDE RECORDS SUMMARY | 2024-08-13 11:15 | XMS_ITS ---
Author Organization Arnaud Armando III, MD Address [address] [place] [address] Care Team Providers Care Pad Machine Operator Name Role Phone Dr. Arnaud Armando III Primary Care Provider Allergies Allergen (clinical drug ingredient) Drug/Non Drug Allergy documented on EMR Reaction Allergy Type Onset Date Status No Known Drug Allergy Unknown Drug Allergy Active REASON FOR VISIT aortic stenosis and insufficiency, cardiomyopathy, Asthma, COPD, Radiation fibrosis, benign prostatic hypertrophy, thyroid nodule Medications Medication SIG (Take, Route, Frequency, Duration) Notes Start Date End Date Status Xarelto 20 MG 1 tablet with food O rally Once a day Active Entresto 24-26 MG 1 tablet Orally Twic e a day Active Rosuvastatin Calcium 20 MG [...] te smoker Vital Signs Height 70 in 08/13/2024 Weight 163 lbs 08/13/2024 BMI 23.39 kg/m2 08/13/2024 Encounters Encounter Location Date Provider Diagnosis Arnaud Armando III, MD [address] [place] [address] [place] [address] 08/13/2024 Arnaud Armando Aortic stenosis Q25. 3 ; Hodgkin's disease C81.90 ; Asthma J45.909 ; COPD (chronic obstructive pulmonary disease) J44.9 ; Neuromuscular disease G70.9 and Former smoker Z87.891 Assessments Encounter Date Diagnosis (ICD Code) Assessment Notes Treat ment Notes Treatment Clinical Notes 08/13/2024 Aortic stenosis (ICD-10 - Q25.3) We are awaiting the day of the TAVR now that the PET CT scan is negative for malignancy. He continues to have mild shortness of breath with exertion. Recent studies have shown significant aortic stenosis and insufficiency. 08/13/2024 Hodgkin's disease (ICD-10 - C81.90) There is no sign of a new primary lymphoma. 08/13/2024 Asthma (ICD-10 - J45.909) He is breathing comfortably. No wheezes are heard on examination. No change in his regimen as needed. His COPDD is mild. 08/13/2024 COPD (chronic obstructive pulmonary disease) (ICD-10 - J44.9) He is not smoking and his COPD is mild. No change in his therapy was needed. 08/13/2024 Neuromuscular disease (ICD-10 - G70.9) He continues to complain of pain because of the weakness in his neck and back muscles which is from the radiation therapy he received many years ago for Hodgkin's disease. 08/13/2024 Former smoker (ICD-10 - Z87.891) He is highly motivated not to smoke. He has a plan to prevent relapse an time of stress and illness. Plan Of Treatment Medication Medication Name Sig Start Date Stop Date Notes Xarelto 20 MG 1 tablet with food O rally Once a day Entresto 24-26 MG 1 tablet Orally Twice a day Rosuvastatin Calcium 20 MG 1 tablet Orally Once a day Carvedilol 17 MG 1 tablet with food O rally Twice a day Vitamin E 400 UNIT 1 tablet Orally twice a day Krill Oil 500 MG as directed Orally Wixela Inhub 250-50 MCG/ACT INHALE 1 PUF F BY MOUTH TWICE A DAY Next Appt Details Follow Up: About a month fro m now, Reason: To check on the patient's condition Provider Name:Arnaud Armando , 07/22/2025 09:30:00 AM, [address] [place] [address] DR, [address], [place], [address], Progress Notes * Nahed ANDERSONOB:1955 ([age] yo M)Acc No.[id number]:08/13/2024 Patient: Nicholas CROCKETT Provider: Yoselyn Armando MD :1955 A ge:68 Y S ex:Male Date:08/13/2024 Address:[address] [place] [id number] Subjective: * Chief Complaints: * A ortic stenosis and insufficiencyCardiomyopathyAsthmaCOPDRadiation fibrosisBenign prostatic hypertrophyThyroid nodule * HPI: * : Telehealth L ocation of provider rendering services: { ...} [address] [place] [address] Drive [address] [facility] [address] L ocation of patient: missy arianneess listed in demographics for today's visit P atient identification confirmed using: N ALEXANDER benavides T elehealth method: T elephone only. Patient not visible to care provider. C onsent: P atient verbally consented to treatment, Patient verbally consented to billing insurance company, Patient informed of any privacy concerns related to method of visit T hola time spent with patient (mins) 1 5 The patient, a 68-year-old male, reported for a follow-up visit after a recent PET scan. The scan was performed to investigate some nodules in his thyroid and left lower lobe. The results of the scan were largely positive, with no abnormal activity in the head or neck, normal lymph nodes, and no abnormal fructose uptake. The lining of the patient's right maxillary sinus was slightly thickened, and a 10mm solid nodule was found in the left lower lobe. The patient's pacemaker appeared normal. The patient is scheduled for a thyroid ultrasound on August 21. The doctor suggested that the findings were consistent with a healed infection and did not resemble Lugins. The patient is also awaiting a call to schedule heart valve surgery. He is cleared to proceed with the TAVR. * ROS: G eneral/Constitutional: pain N humble and shoulders. C hills d enies. F atigue a [...] dditional Findings: Tobacco non-user E x-cigarette smoker H e was born in [place]. He is and has 3 children. He [...] t: 70, Wt:163, BMI:23.39, Ht-cm: 177.8, Wt-k.94. Assessment: * Assessment: 1. A ortic stenosis - Q25.3 (Primary) N otes :We are awaiting the day of the TAVR now that the PET CT scan is negative for malignancy. He continues to have mild shortness of breath with exertion. Recent studies have shown significant aortic stenosis and insufficiency. 2 . H odgkin's disease - C81.90 N otes :There is no sign of a new primary lymphoma. 3 . A sthma - J45.909 N otes :He is breathing comfortably. No wheezes are heard on examination. No change in his regimen as needed. His COPDD is mild. 4 . C OPD (chronic obstructive pulmonary disease) - J44.9 N otes :He is not smoking and his COPD is mild. No change in his therapy was needed. 5 . N euromuscular disease - G70.9 N otes :He continues to complain of pain because of the weakness in his neck and back muscles which is from the radiation therapy he received many years ago for Hodgkin's disease. 6 . F ormer smoker - Z87.891 N otes :He is highly motivated not to smoke. He has a plan to prevent relapse an time of stress and illness. Plan: * Treatment: 2. O thers Continue Wixela Inhub Aerosol Powder Breath Activated, 250-50 MCG/ACT, INHALE 1 PUFF BY MOUTH TWICE A DAY. * Procedure Codes: * Preventive Medicine: Counseling: S moking/Tobacco Use Patient counseled on the dangers of tobacco use and urged to quit. 0 08/13/2024 COPD Care Plan: P atient Lifestyle Goals R elieve symptoms and improve quality of life, Be able to be more active with friends and family. T reatment Goals E xercise to help whole body, including lungs, Eat a nutritious diet and increase water consumption to 6-8 glasses a day. B arriers n o barriers. S elf-Managment Goals G et an air purifier for the rooms you are in the most, Eat a healthy diet. * Follow Up: A bout a month from now (Reason: To check on the patient's condition) * Images: * Sign off status: Completed true * Provider: Yoselyn Armando MD Date: 0 08/13/2024 Generated for Janny mesa/Ed/eTransmitting on: 1 10:06 AM EDT History and Physical Notes * HPI (History of Present Illness) Category Sub-Category Detail Notes Telehealth Location of [facility] rendering services:: {...} [address] [place] [address] [place] [id number] Location of patient:: address listed in demographics [...]
--- OUTSIDE RECORDS SUMMARY | 2024-09-18 06:15 | XMS_ITS ---
Author Organization Arnaud Armando III, MD Address [address] [place] [place] [address] Care Team Providers Care Header Boss Name Role Phone Dr. Arnaud Armando III Primary Care Provider [phone] Allergies Allergen (clinical drug ingredient) Drug/Non Drug Allergy documented on EMR Reaction Allergy Type Onset Date Status No Known Drug Allergy Unknown Drug Allergy Active REASON FOR VISIT TAVR Scheduled September 30, 2024 at [facility], Aortic stenosis, Hyperlipidemia, Asthma, COPD, Posterior thoracic [...] Date Provider Diagnosis Arnaud Armando III, MD [address] [place] [address] [place] [address] 09/18/2024 Arnaud Armando Aortic stenosis Q25. 3 [...] He will proceed to the TAVR at [facility] September 30, 2024. I found no contraindication [...] today. He is seen regularly by the plant and instrument engineer. He is doing much better on [...] weeks, Reason: OV Provider Name:Arnaud Armando , 07/22/2025 09:30:00 AM, [address] [place] [address] [address], [place], [phone], Progress Notes * Jesus ANDERSON:1955 ([age] yo M)Acc No.[id number]:09/18/2024 Progress Notes Patient: Nicholas CROCKETT Provider: Yoselyn Armando MD :1955 A ge:68 Y S ex:Male Date:09/18/2024 Address:[address] [place] [address] [place], [id number] Subjective: * Chief Complaints: * [facility] stenosisHyperlipidemiaAsthmaCOPDPosterior thoracic muscle weaknessHypertensionBenign prostatic hypertrophy * HPI: C OVID-19 Screening: He is scheduled to have a TAVR for critical aortic stenosis September 30, 2024 at [facility] to be done by Dr. Boateng. He [...] x-cigarette smoker H e was born in [place]. He is and has 3 children. He [...] List reviewed and reconciled with the patientTaking Jamiexela Inhub 250-50 MCG/ACT Aerosol Powder Breath Activated [...] Date & Time - 07/21/2024 10:28 AM)?ValueReference Range?Jxtsenkqya98.020-40 - mg/dL ???Lab:Free T4 (Free Thyroxine) (Order [...] :He will proceed to the TAVR at [facility] September 30, 2024. I found no contraindication [...] today. He is seen regularly by the plant and instrument engineer. He is doing much better on [...] MD Date: 0 09/18/2024 Generated for Janny mesa/Ed/eTransmitting on: 1 10:05 AM EDT History and Physical Notes [...]
--- OUTSIDE RECORDS SUMMARY | 2024-09-29 06:52 | XMS_ITS ---
Author Organization Arnaud Armando III, MD Address [address] [facility] [place] [address] Care Team Providers Care Research And Insights Executive Name Role Phone Dr. Arnaud Armando III Primary Care Provider [phone] REASON FOR VISIT HCC Risk Codes Social History Sex Assigned At : Social History Observation Description Sex Assigned At Male Encounters Encounter Location Date Provider Diagnosis Arnaud Armando III, MD [address] [place] [address] [place] [address] 09/29/2024 Arnaud Armando Plan Of Treatment Next Appt Details Provider Name:Arnaud Armando , 07/22/2025 09:30:00 AM, [address] [place] [address] [place], [address], Progress Notes * Nahed ANDERSONOB:1955 ([age] yo M)Acc No.[id number]:09/29/2024 Patient: Nicholas CROCKETT :1955 A ge:68 Y S ex:Male Address:[address] [place] [phone] * true * Date: Generated for Janny mesa/Ed/Edieitting on: 10:07 AM EDT
--- OUTSIDE RECORDS SUMMARY | 2024-11-20 05:30 | XMS_ITS ---
Author Organization Arnaud Armando III, MD Address [address] [address] Care Team Providers Care Head Of Conservation Name Role Phone Dr. Arnaud Armando III [...] Provider Diagnosis Arnaud Armando III, MD [address] [place] [address] [place] [address] 11/20/2024 Arnaud Armando Aortic stenosis Q25. 3 ; Weight loss R63.4 ; Cardiomyopathy I42.9 ; Hodgkin's disease C81.90 ; COPD (chronic obstructive pulmonary disease) J44.9 ; Asthma J45.909 ; Essential (primary) hypertension I10 and Former smoker Z87.891 Assessments Encounter Date Diagnosis (ICD Code) Assessment Notes Treat ment Notes Treatment Clinical Notes 11/20/2024 Aortic stenosis (ICD-10 - Q25.3) He had the TAVR at [facility] September 30, 2024. The new valve [...] today. He is seen regularly by the airline customer service agent. He is doing much better on the [...] Weeks, Reason: OV Provider Name:Arnaud Armando , 07/22/2025 09:30:00 AM, [address] [place] [address] [address] [place] [address], [place], [address], Progress Notes * Jesus ANDERSON:1955 ([age] yo M)Acc No.[id number]:11/20/2024 Progress Notes Patient: Nicholas CROCKETT Provider: Yoselyn Armando MD :1955 A ge:69 Y S ex:Male Date:11/20/2024 Address:[address] [place] [address] [id number] Subjective: * Chief Complaints: * R ecent TAVR Due to aortic stenosisMuscle weakness From radiation 5 paralysisCOPDBenign prostatic hypertrophy * HPI: C OVID-19 Screening: Jos mack recently underwent a TAVR at [facility] by Dr. Schwartz, his airline customer service agent. He has noted a marked improvement in [...] x-cigarette smoker H e was born in [place]. He is and has 3 children. He [...] Examination: G eneral Examination: GENERAL APPEARANCE: p my, well nourished, well developed, in no acute [...] N otes :He had the TAVR at [facility] September 30, 2024. The new valve [...] today. He is seen regularly by the airline customer service agent. He is doing much better on the [...] MD Date: 0 11/20/2024 Generated for Janny mesa/Ed/Edieitting on: 1 10:05 AM EDT History and [...]
--- OUTSIDE RECORDS SUMMARY | 2025-01-02 06:15 | XMS_ITS ---
Author Organization Arnaud Armando III, MD Address [address] [place] [address] Care Team Providers Care Soap Grinder Name Role Phone Dr. Arnaud Armando III Primary Care Provider [phone] Allergies Allergen (clinical drug ingredient) Drug/Non Drug [...] Provider Diagnosis Arnaud Armando III, MD [address] [place] [address] [place] [address] 01/02/2025 Arnaud Armando Aortic stenosis Q25. 3 [...] - Q25.3) He had the TAVR at [facility] September 30, 2024. The new valve appears [...] Months, Reason: OV Provider Name:Arnaud Armando , 07/22/2025 09:30:00 AM, [address] [place] [address] , [address], [place], [address], Progress Notes * Nahed ANDERSONOB:1955 ([age] yo M)Acc No.[id number]:01/02/2025 Progress Notes Patient: Nicholas CROCKETT Provider: Yoselyn Armando MD :1955 A ge:69 Y S ex:Male Date:01/02/2025 Address:[address] [place] [id number] Subjective: * Chief Complaints: * R ecent [...] Findings: Tobacco non-user E x-cigarette smoker H frederick was born in [place]. He is and has 3 children. He [...] N otes :He had the TAVR at [facility] September 30, 2024. The new valve appears [...] 01/02/2025 Generated for Janny mesa/Ed/eTransmitting on: 1 10:06 [...]
--- OUTSIDE RECORDS SUMMARY | 2025-02-17 07:30 | XMS_ITS ---
Author Organization Arnaud Armando III, MD Address [address] [place] [address] Care Team Providers Care Genetic Engineer Name Role Phone Dr. Arnaud Armando III Primary Care Provider Allergies Allergen (clinical drug ingredient) Drug/Non Drug Allergy documented on EMR Reaction Allergy Type Onset Date Status No Known Drug Allergy Unknown Drug Allergy Active REASON FOR VISIT mass right forearm, Aortic stenosis, repaired, Hypertension, Asthma, Deped, Benign prostatic hypertrophy, Anticoagulated Medications Medication SIG (Take, Route, Frequency, Duration) Notes Start Date End Date Status Xarelto 20 MG 1 tablet with food O rally Once a day Active Wixela Inhub 250-50 MCG/ACT INHALE 1 PUF F BY MOUTH TWICE A DAY Active Krill Oil 500 MG as directed Orally Active Vitamin E 400 UNIT 1 tablet Orally twic e a day Active Carvedilol 17 MG 1 tablet with food O rally Twice a day Active Rosuvastatin Calcium 20 MG 1 tablet Oral ly Once a day Active Entresto 24-26 MG 1 tablet Orally Twic e a day Active Social History Tobacco Use: [...] Additional Findings: Tobacco non-user Ex-cigaret te smoker Problems Problem Type SNOMED Code ICD Code Onset Dates Problem Status W/U Status Risk Notes Problem [id number] Hematoma (T14.8XXA) Active confirmed We are going to observe this with our treatment as it seems to be improving. He is going to notify me if there is any adverse change. Vital Signs Temperature 98.4 degrees Fahrenheit 02/18/20 25 Blood pressure systolic 133 mm Hg 02/18/20 25 Blood pressure diastolic 95 mm Hg 025 Heart Rate 73 /min 02/17/2025 Height 70 in 02/17/2025 Weight 169 lbs 02/17/2025 BMI 24.25 kg/m2 02/17/2025 Encounters Encounter Location Date Provider Diagnosis Arnaud Armando III, MD [address] [place] [address] [place] [address] 02/17/2025 Arnaud Armando Aortic stenosis Q25. 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 The new valve appears to be working well. 02/17/2025 Hematoma (ICD-10 - T14.8XXA) We are going to observe this with our treatment as it seems to be improving. He is going to notify me if there is any adverse change. 02/17/2025 Cardiomyopathy (ICD-10 - I42.9) His cardiomyopathy is compensated and there was no sign of congestive heart failure today. He is seen regularly by the integrated logistics programs director. He is doing much better on the entresto. 02/17/2025 COPD (chronic obstructive pulmonary disease) (ICD-10 - J44.9) He is not smoking and his COPD is mild. No change in his therapy was needed. 02/17/2025 Asthma (ICD-10 - J45.909) He is breathing comfortably. No wheezes are heard on examination. No change in his regimen as needed. His COPDD is mild. 02/17/2025 Radiation fibrosis of soft tissue from therapeutic [...] long-term control substances which are habit forming. 02/17/2025 Former smoker (ICD-10 - Z87.891) He is highly motivated not to smoke. He has a plan to prevent relapse an time of stress and illness. Plan Of Treatment Medication Medication Name Sig Start Date Stop Date Notes Xarelto 20 MG 1 tablet with food O rally Once a day Wixela Inhub 250-50 MCG/ACT INHALE 1 PUF F BY MOUTH TWICE A DAY Krill Oil 500 MG as directed Orally Vitamin E 400 UNIT 1 tablet Orally twice a day Carvedilol 17 MG 1 tablet with food O rally Twice a day Rosuvastatin Calcium 20 MG 1 tablet Orally Once a day Entresto 24-26 MG 1 tablet Orally Twice a day Next Appt Details Follow Up: call office [place] with update on how he is feeling, Reason: as scheduled Provider Name:Arnaud Armando , 07/22/2025 09:30:00 AM, [address] [place] [address] [address], [place], [address], Progress Notes * Nahed ANDERSONOB:1955 ([age] yo M)Acc No.[id number]:02/17/2025 Patient: Nicholas CROCKETT Provider: Yoselyn Armando MD :1955 A ge:69 Y S ex:Male Date:02/17/2025 Address:[address] [place] [address] [id number] Subjective: * Chief Complaints: * M ass right forearmAortic stenosis, repairedHypertensionAsthmaDepedBenign prostatic hypertrophyAnticoagulated * HPI: C OVID-19 Screening: Several days ago after working he developed pain in the large mass under the skin of his right lateral forearm near the elbow. He came in today for evaluation. There was a 2 inch mass under the skin. The skin was bright pain and surrounded by a large 10-12 cm area of ecchymosis. The most likely etiology was a hematoma from trauma and an anticoagulated patient. It was not painful and does not impair the activities of daily living. He will be observed. He says it is much smaller than it was 3 days ago. Questions H ave you had any new onset fever, chills, cough, congestion, sore throat, shortness of breath, muscle aches? N o * ROS: G eneral/Constitutional: pain o nly normal aches and pains. C hills d enies.?Fatigue a dmits. F ever d enies. E [...] enies. S ciatica d enies. W eakness N humble and posterior shoulder muscles. S kin: Itching d enies. R janice d enies. S kin lesion(s)?denies. N eurologic: Difficulty speaking d enies. D izziness d enies.?Headache d enies. L ow back pain d enies. P sychiatric: Depressed mood d enies. * Medical History: * Surgical History: r [...] x-cigarette smoker Jos mack was born in [place]. He is and has 3 children. He has a twin. * Medications: T akingKrill Oil 500 MG Capsule as directed Orally Vitamin E 400 UNIT Tablet 1 tablet Orally twice a day Carvedilol 17 MG Tablet 1 tablet with food Orally Twice a day Rosuvastatin Calcium 20 MG Tablet 1 tablet Orally Once a day Entresto 24-26 MG Tablet 1 tablet Orally Twice a day Xarelto 20 MG Tablet 1 tablet with food Orally Once a day Wixela Inhub 250-50 MCG/ACT Aerosol Powder Breath Activated INHALE 1 PUFF BY MOUTH TWICE A DAY Medication List reviewed and reconciled with the patientTaking Krill Oil 500 MG Capsule as directed [...] 1 PUFF BY MOUTH TWICE A DAY Medication List reviewed and reconciled with the patient * Allergies: N o Known Drug Allergyno[Allergies Verified] Objective: * Vitals: H t: 70, Wt:169, BMI:24.25, BP:133/95, HR:73, Temp:98.4, Ht-cm: 177.8, Wt-k.66. * Examination: G eneral Examination: GENERAL APPEARANCE: p leasant, well nourished, well developed, in no acute distress, calm and relaxed: man. HEAD: a traumatic, normocephalic. EYES: e [...] no clubbing, cyanosis or edema, Rectangular area muscle atrophy and fibrosis upper thoracic area, right forearm large purple ecchymosis with subcutaneous palpable mass approximately 2 inches in diameter which is nontender, overlying skin is intact. PERIPHERAL PULSES: n ormal. NEUROLOGIC: a lert and oriented, cranial nerves 2-12 grossly intact, deep tendon reflexes 2+ symmetrical, motor strength normal upper and lower extremities, sensory exam intact. PSYCH: a lert, oriented. Assessment: * Assessment: 1. H ematoma - T14.8XXA (Primary) N otes :We are going to observe this with our treatment as it seems to be improving. He is going to notify me if there is any adverse change. 2 . A ortic stenosis - Q25.3 N otes :He had the TAVR at [facility] September 30, 2024. The new valve appears to be working well. 3 . C ardiomyopathy - I42.9 N otes :His cardiomyopathy is compensated and there was no sign of congestive heart failure today. He is seen regularly by the integrated logistics programs director. He is doing much better on the entresto. 4 . C OPD (chronic obstructive pulmonary disease) - J44.9 N otes :He is not smoking and his COPD is mild. No change in his therapy was needed. 5 . A sthma - [...] substances which are habit forming. 7 . F ormer smoker - Z87.891 N [...] tobacco use and urged to quit. 0 02/17/2025 COPD Care Plan: P atient Lifestyle Goals [...] at a healthy diet. * Follow Up: c all office Sunday with update on how he is feeling (Reason: as scheduled) * Images: * Sign off status: Completed true * Provider: Yoselyn Armando MD Date: 0 02/17/2025 Generated for Janny mesa/Faxing/eTransmitting on: 1 10:08 AM EDT History and Physical Notes * HPI (History of Present Illness) Category Sub-Category Detail Notes COVID-19 Screening Questions Have you had any new onset fever, chills, cough, congestion, sore throat, shortness of breath, muscle aches?: No Examination Category Sub-Category Detail Notes General Examination GENERAL APPEARANCE: pleasant , well nourished, well developed, in no acute distress, calm and relaxed: man HEAD: atraumatic, normocep halic EYES: eomi, [...] no clubbing, cyanosis or edema, Rectangular area muscle atrophy and fibrosis upper thoracic area, right forearm large purple ecchymosis with subcutaneous palpable mass approximately 2 inches in diameter which is nontender, overlying skin is intact LYMPH NODES: no enlarged lymph no kennedy,spleen normal RECTAL EXAM: not examined PSYCH: alert, oriented ORAL CAVITY: normal, unremarkable
--- OUTSIDE RECORDS SUMMARY | 2025-05-04 05:30 | XMS_ITS ---
Author Organization Arnaud Armando III, MD Address [address] [place] [address] Care Team Providers Care Mini Shifter Name Role Phone Dr. Arnaud Armando III Primary Care Provider Allergies Allergen (clinical drug ingredient) Drug/Non Drug Allergy documented on EMR Reaction Allergy Type Onset Date Status No Known Drug Allergy Unknown Drug Allergy Active REASON FOR VISIT Right thyroid nodule August 2024, Multinodular thyroid, 10 mm right lower lobe lung nodule, The aortic stenosis, TAVR Medications Medication SIG (Take, Route, Frequency, Duration) Notes Start Date End Date Status Xarelto 20 MG 1 tablet with food O rally Once a day Active Wixela Inhub 250-50 MCG/ACT INHALE 1 PUF F BY MOUTH TWICE A DAY Active Rosuvastatin Calcium 20 MG 1 tablet Oral ly Once a day Active Entresto 24-26 MG 1 tablet Orally Twic e a day Active Carvedilol 17 MG 1 tablet with food O rally Twice a day Active Krill Oil 500 MG as directed Orally Active Vitamin E 400 UNIT 1 tablet Orally twic e a day Active Social History Tobacco [...] non-user Ex-cigaret te smoker Vital Signs Temperature 98.1 degrees Fahrenheit 05/04/20 25 Blood pressure systolic 119 mm Hg 05/04/20 25 Blood pressure diastolic 75 mm Hg 025 Heart Rate 78 /min 05/04/2025 Height 70 in 05/04/2025 Weight 170 lbs 05/04/2025 BMI 24.39 kg/m2 05/04/2025 Encounters Encounter Location Date Provider Diagnosis Arnaud Armando III, MD [address] [place] [address] [place] [address] 05/04/2025 Arnaud Armando Aortic stenosis Q25. 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 The new valve appears to be working well. 05/04/2025 Thyroid nodule (ICD-10 - E04.1) A repeat ultrasound of the thyroid at [facility] has been ordered as has thyroid function tests. 05/04/2025 Other and unspecified hyperlipidemia (ICD-10 - E78.5) His lipids have been stable. No change in his regimen was made today. 05/04/2025 Former smoker (ICD-10 - Z87.891) He is highly motivated not to smoke. He has a plan to prevent relapse an time of stress and illness. 05/04/2025 Cardiomyopathy (ICD-10 - I42.9) His cardiomyopathy is compensated and there was no sign of congestive heart failure today. He is seen regularly by the outside rigger. He is doing much better on the entresto. 05/04/2025 Hodgkin's disease (ICD-10 - C81.90) There is no sign of a new primary lymphoma. 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 05/04/2025 Essential (primary) hypertension (ICD-10 - I10) His blood pressure today is normal and well controlled and no change in his regimen was needed. 05/04/2025 BPH (benign prostatic hyperplasia) (ICD-10 - N40.0) [...] PUF F BY MOUTH TWICE A DAY Rosuvastatin Calcium 20 MG 1 tablet Orally Once a day Entresto 24-26 MG 1 tablet Orally Twice a day Carvedilol 17 MG 1 tablet with food O rally Twice a day Krill Oil 500 MG as directed Orally Vitamin E 400 UNIT 1 tablet Orally twice a day Pending Test Test Name Order Date PROFILE, FASTING (COMPREHENSIVE METABOLI C) 05/04/2025 TSH (THYROID STIMULATING HORMONE) 2024 CBC w DIFF 05/04/2025 Lipid Panel 05/04/2025 Free T4 (Free Thyroxine) 05/04/2025 US thyroid 05/04/2025 Next Appt Details Follow Up: As Scheduled, Judi son: Annual Exam Provider Name:Arnaud Armando , 07/22/2025 09:30:00 AM, [address] [place] [address] [place], [place], [address], Progress Notes * Nahed ANDERSONOB:1955 ([age] yo M)Acc No.[id number]:05/04/2025 Progress Notes Patient: Nicholas CROCKETT Provider: Yoselyn Armando MD :1955 A ge:69 Y S ex:Male Date:05/04/2025 Address:[address] [place], [place] [id number] Subjective: * Chief Complaints: * R ight thyroid nodule August 2024Multinodular frqynuh98 mm right lower lobe lung noduleThe aortic stenosis, TAVR * HPI: C OVID-19 Screening: Jos mack returns for a scheduled visit for management of numerous issues. On August 21, 2024. An ultrasound of his thyroid confirm the presence of a nodule in the right thyroid. This had been seen on his CT scan of his chest. A repeat ultrasound was ordered today for followup. He has a 10 mm nodule in his right lobe and is going to see his prescription benefit specialist, Dr. Corey, May 12, 2025. He had a CT scan of his chest for a 6 month followup recently. It appears to be unchanged. It had an SUV of 2.1. He sees cardiology May 20, 2025 for followup of his aortic valve replacement. He is breathing comfortably and tolerates exercise well.He is going to have comprehensive blood work including thyroid function tests before his next visit in mid June 2025. Questions H ave you had any new [...] exertion d enies. D yspnea on exertion?with prolonged activity. S hortness of breath w ith [...] urination d enies. M usculoskeletal: Muscle aches N humble. P ainful joints d enies. S ciatica [...] x-cigarette smoker Jos mack was born in [place]. He is and has 3 children. He [...] Verified] Objective: * Vitals: H t: 70, Wt:170, BMI:24.39, BP:119/75, HR:78, Temp:98.1, Ht-cm: 177.8, Wt-k.11. * P ast Orders: Imaging:CT chest wo con * Performed Date 04/23/2025 10/15/2024 02:00 PM 02:28 PM Order Date 04/23/2025 10/15/2024 * Examination: G eneral Examination: GENERAL APPEARANCE: p leasant, well nourished, well developed, in no acute distress, calm and relaxed: man. HEAD: a traumatic, normocephalic. EYES: e joselin, perrla, anicteric, conjugate. EARS: n ormal. NOSE: s eptum intact. ORAL CAVITY: n ormal, unremarkable. NECK/THYROID: n o jugular venous distention, no carotid bruit, thyroid nodule is not palpable. LYMPH NODES: n o enlarged lymph nodes,spleen normal. SKIN: n o suspicious lesions, anicteric. HEART: n o clicks, gallops, murmurs, or rubs, regular rhythm, S1, S2 normal, no s3, or vascular bruits. LUNGS: d iminished breath sounds throughout. BREASTS: no masses palpable bilaterally. ABDOMEN: b owel sounds normal, no ascites, no organomegaly, no mass. RECTAL EXAM: n ot examined. MUSCULOSKELETAL: e xtremities unremarkable, no clubbing, cyanosis or edema, A rectangular area muscle atrophy upper thoracic spine. PERIPHERAL PULSES: n ormal. NEUROLOGIC: a lert and oriented, cranial nerves 2-12 grossly intact, deep tendon reflexes 2+ symmetrical, motor strength normal upper and lower extremities, sensory exam intact. PSYCH: a lert, oriented. Assessment: * Assessment: 1. A ortic stenosis - Q25.3 (Primary) N otes :He had the TAVR at [facility] September 30, 2024. The new valve appears to be working well. 2 . T hyroid nodule - E04.1 N otes :A repeat ultrasound of the thyroid at [facility] has been ordered as has thyroid function tests. 3 . O ther and unspecified hyperlipidemia - E78.5 N otes :His lipids have been stable. No change in his regimen was made today. 4 . F ormer smoker - Z87.891 N otes :He is highly motivated not to smoke. He has a plan to prevent relapse an time of stress and illness. 5 . C ardiomyopathy - I42.9 N otes :His cardiomyopathy is compensated and there was no sign of congestive heart failure today. He is seen regularly by the outside rigger. He is doing much better on the entresto. 6 . H odgkin's disease - C81.90 N otes :There is no sign of a new primary lymphoma. 7 . 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 R adiation fibrosis of soft tissue [...] long-term control substances which are habit forming. 9 . E ssential (primary) hypertension - I10 N otes :His blood pressure today is normal and well controlled and no change in his regimen was needed. 1 0. B PH (benign prostatic hyperplasia) - N40.0 N otes :He rises from sleep at most once a night to urinate. We have discussed his options for treatment. We reviewed lifestyle modifications he can make to decrease nocturia. Plan: * Treatment: 2. T hyroid nodule L AB: PROFILE, FASTING (COMPREHENSIVE METABOLIC) L AB: TSH (THYROID STIMULATING HORMONE) L AB: CBC w DIFF L AB: Lipid Panel L AB: Free T4 (Free Thyroxine) I maging: US thyroid 3. O ther and unspecified hyperlipidemia L AB: PROFILE, FASTING (COMPREHENSIVE METABOLIC) L AB: TSH (THYROID STIMULATING HORMONE) L AB: CBC w DIFF L AB: Lipid Panel L AB: Free T4 (Free Thyroxine) 4. O thers Continue Wixela Inhub Aerosol Powder Breath Activated, 250-50 MCG/ACT, INHALE 1 PUFF BY MOUTH TWICE A DAY. * Procedure Codes: * Preventive Medicine: Counseling: S moking/Tobacco Use Patient counseled on the dangers of tobacco use and urged to quit. 1 COPD Care Plan: P atient Lifestyle Goals R educe number of ED and hospitalizations, Relieve symptoms and improve quality of life, Be [...] are in the most, Eat a healthy diet, Exercise at least 3xs per week for at least 30 mins.? * Follow Up: A s Scheduled (Reason: Annual Exam) * Images: * Sign off status: Completed true * Provider: Yoselyn Armando MD Date: Generated for Janny mesa/Ed/eTransmitting on: 10:06 AM EDT History and Physical Notes [...] di stention, no carotid bruit, thyroid nodule is not palpable HEART: no clicks, gallops, murmurs, or rubs, regular rhythm, S1, S2 normal, no s3, or vascular bruits LUNGS: diminished breath so unds throughout ABDOMEN: bowel sounds normal, no ascites, no organomegaly, no mass NEUROLOGIC: alert and oriented, cranial nerves 2-12 grossly intact, deep tendon reflexes 2+ symmetrical, motor strength normal upper and lower extremities, sensory exam intact SKIN: no suspicious lesion s, anicteric PERIPHERAL PULSES: normal BREASTS: no masses palpable b ilaterally MUSCULOSKELETAL: extremities unremark able, no clubbing, cyanosis or edema, A rectangular area muscle atrophy upper thoracic spine LYMPH NODES: no enlarged lymph no kennedy,spleen normal RECTAL EXAM: not examined PSYCH: alert, oriented ORAL CAVITY: normal, unremarkable
[2025-05-12 09:19] VITALS: BP 128/70; PULSE 85; O2SAT 93; BMI 24.0
--- NOTE | 2025-05-12 09:19 | A.OFFVIS_ITS ---
Vital Signs 05/12/25 09:19 Height 5 ft 10 in Weight 167 lb BMI 24.0 BP 128/70 Blood Pressure Location Rt brachial Position Sitting Pulse 85 Pulse Source Pulse Oximeter Pulse Oximetry (%) 93 Oxygen Delivery Method Room Air Intake Visit Reasons: copd Allergies No Known Allergies Allergy (Verified 05/12/25 09:22) HPI HPI copd: Details: 68-year-old gentleman, remote approximately 15 pack-year smoker, quit over 30 years prior, with history of Hodgkin's lymphoma status post radiation 49 years p rior who is being evaluated for TAVR at [facility] and as a part of evaluation had CT chest that demonstrated multiple pulmonary nodules. Patient is also complain of unintended weight loss of approximately 10 lb over the last 3 months. He has been using Wixela for underlying reactive airway disease. 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 Patient a lso had TAVR in September 2024 with improvement in his respiratory symptoms. Patient's PET-CT did not demonstrate significant FDG uptake in his parenchymal or mediastinal nodules. His 6 months follow-up CT chest demonstrates waxing and waning pulmonary densities. Patient also had TAVR on September 30 with improvement in his respiratory symptoms. He denies recent exacerbations. [facility] Medical History (Updated 07/22/24 @ 14:18 by Jose Corey MD) Afib Presence of combination internal cardiac defibrillator (ICD) and pacemaker Asthma with COPD Left bundle branch block BPH (benign prostatic hyperplasia) Aortic stenosis Nonischemic cardiomyopathy Hodgkins disease Hyperlipidemia Surgical History Hx of splenectomy Social History Patient Tobacco Use Status: Former Tobacco user Tobacco use type: Cigarette Years Smoked: 20 Review of Systems Const Denies daytime sleepiness, Denies excessive sweating, Denies fatigue, Denies fever(s), Denies lethargy, Denies malaise, Denies night sweats, Denies snoring and Denies weight loss Eyes Denies blurry vision and Denies itchy eyes ENT Denies nasal congestion, Denies post nasal drip, Denies sinus pain, Denies sinus pressure and Denies other ( Thrush) Card Denies chest pain, Denies pedal edema, Denies dyspnea, Denies orthopnea and Denies paroxysmal nocturnal dyspnea Resp Denies cough, Denies hemoptysis, Denies excessive phlegm production, Denies dyspnea, Denies snoring and Denies wheezing GI Denies abdominal pain and Denies heartburn Musc Denies myalgias, Denies arthralgias and Denies joint swelling Skin/Breast Denies rash Neuro Denies memory loss and Denies seizure-like activity Psych Denies abnormal sleep pattern, Denies anxiety and Denies memory loss Endo Denies excessive sweating, Denies fatigue and Denies heat intolerance Chon/Lymph Denies easy bruising Aller/Immun Denies itchy eyes, Denies seasonal rhinorrhea and Denies wheezing Physical Exam Vital Signs: Last Vital Signs Pulse 85 05/12/25 09:19 BP 128/70 05/12/25 09:19 Pulse Ox 93 05/12/25 09:19 Oxygen Delivery Method Room Air 05/12/25 09:19 BMI result Body Mass Index 24.0 Const General: no acute distress and alert Nutritional Appearance: not obese Orientation/consciousness: Other orientation findings ( oriented) HEENT Head: Yes atraumatic Eyes General: appearance normal, both eyes and all related structures Sclerae: sclerae normal EOM: EOMs intact bilaterally Neck Neck: Yes supple Lymphatic: no lymphadenopathy noted Resp Effort & Inspection: normal respiratory effort and no use of accessory muscles Auscultation: clear to auscultation bilaterally Cardio Rate: regular rate Rhythm: regular rhythm Heart sounds: no gallops, no murmurs and no rubs Skin General skin exam: other ( warm) Extrem General: No clubbing, No cyanosis and No edema Assessment & Plan Assessment & Plan (1) Asthma with COPD: Code(s): J44.9 - Chronic obstructive pulmonary disease, unspecified Category: Medical Plan: Well controlled on Wixela and albuterol MDI. Continue current regimen. (2) Pulmonary nodules: Code(s): R91.8 - Other nonspecific abnormal finding of lung field Category: Medical Plan: Results of six-month follow-up CT chest reviewed, waxing and waning pulmonary densities, continue with radiologic surveillance, necxtCT chest in six-month, ordered. Orders: Orders CT chest wo IV con 10/31/25 R91.8 - Other nonspecific abnormal finding of lung field Coding Level of Care Code Est Pt Level 4 (47817) Diagnoses Asthma with COPD J44.9 Pulmonary nodules R91.8
--- OUTSIDE RECORDS SUMMARY | 2025-05-12 10:06 | XMS_ITS | Clinical Summary ---
Author Organization [facility] [employer] [facility] [employer] Address [address] [place] [address] Care Team Providers Care Motor Rebuilder Name Role Phone No, Pcp FORENSIC SOCIAL WORKER Primary Care Provider Unavailabl e Allergies No known active allergies Medications SYMBICORT 160-4.5 mcg/actuation inhaler 03/09/2018 Active carvedilol (COREG) 25 MG tablet 03/20/2018 Active furosemide (LASIX) 20 MG tablet 03/09/2018 Active rosuvastatin (CRESTOR) 10 MG tablet 02/28/2018 Active Immunizations Immunization Administration Dates Next Due Boostrix (Tdap) Prefilled [...] 90 03/23/2018 11:39 AM EDT Temperature 36.2 C (97.2 F) 03/23/2018 11:39 AM EDT Respiratory Rate 12 03/23/2018 11:39 AM EDT [...] Adults 18 yrs or above (or HM Modifier)([facility]) 10/10/1973 Hepatitis C Virus Infection in Adolescents and Adults: Screening (or Modifier) ([facility]) 10/10/1973 SDOH Screening Reminder: Juliana vizcarra for all adults ([facility]) 10/10/1973 Tobacco Smoking Cessation: i n Adults excluding Women: Behavioral and Pharmacotherapy Interventions ([facility]) 10/10/1973 Colorectal Cancer Screening 45 -75 Yrs (or HM Modifier) 10/10/2000 Colorectal Cancer: FLEXIBLE SIGMOIDOSCOPY Screening every 5 yrs 10/10/2000 Colorectal Cancer: Fecal Imm unochemical Test (FIT) Annually [facility] 10/10/2000 Colorectal Cancer: High-sens itivity gFOBT Screening Annually [facility] 10/10/2000 Colorectal Cancer: Stool Col oguard Screening every 3 yrs 10/10/2000 Colorectal Cancer:CT Colonog grant Screening every 5 yrs 10/10/2000 Lung Cancer: Screening Annua lly in adults aged 50 to 80 years (or HM Modifiers)([facility]) 10/10/2005 Pneumococcal Vaccination Scr eening: Patients 50+ yrs of age ([facility]) (1 of 1 - PCV) 10/10/2005 Zoster/Shingles Vaccine Seri es Screening: Adults aged 18+ yrs (or HM Modifiers)([facility]) (1 of 2) 10/10/2005 Flu Vaccination: Ages 65+: Y early High Dose Recommended (or Modifier)([facility]) 02/13/2025 COVID-19 Vaccine Screening: Initial Series and Booster Status ([facility]) ( - 2023- season) 2025 DTaP/Tdap/Td Vaccines ([facility]) (2 - Td or Tdap) 03/23/2018 RSV Vaccines (1 - 1-dose 75+ series) 10/10/2030 Medical Devices Not on file Insurance [facility] [employer] Care Teams Motor Rebuilder Relationship Specialty Start Date End Date No, Pcp, FORENSIC SOCIAL WORKER N/A Do not use PCP - General 03/23/18
--- OUTSIDE RECORDS SUMMARY | 2025-05-12 10:07 | XMS_ITS | Patient Health Record ---
Author Organization [facility] Address [address] [place] [address] Care Team Providers Care Thermoscrew Operator Name Role Phone Arnaud Armando MD Primary Care Provider Rico Stewart Jr Unavailable [phone] Allergies No Known Allergies Reason For Referral No Information Medications Medication SIG (Take, Route, Frequency, Duration) Notes Start Date End Date Status Baclofen 10 MG/20ML as directed Intrathecal Active MiraLax (colon prep) 17 GM/SCOOP mixed with Gatorade or Crystal Light Orally begin at 5:00 p.m. the day before the procedure; Duration: 1 day 12/28/2022 Active traZODone HCl 50 MG 1 tablet at bedtime as needed Orally Once a day; Duration: 30 day(s) Active Niacin 500 MG 1 tablet with food Orally Once a day; Duration: 30 day(s) Active Carvedilol 25 MG Oral; Duration: 90 Active Pentoxifylline ER 400 MG 1 tablet with m eals Orally Twice a day; Duration: 30 day(s) Active diazePAM 5 MG 1 tablet as needed Orally Once a day Active Symbicort 160-4.5 MCG/ACT 2 puffs Inhala tion Twice a day Active Rosuvastatin Calcium 40 MG Oral; Duration: 90 Active Wixela Inhub 250-50 MCG/ACT Inhalation; Duration: 90 Active Xarelto 20 MG TAKE 1 TABLET BY LATOYA TH EVERY DAY FOR 90 DAYS Oral; Duration: 90 Active Entresto 24-26 MG TAKE 1 TABLET BY LATOYA TH TWICE A DAY FOR 90 DAYS Oral; Duration: 90 Active Immunizations Vaccine Route Administration Date [...] Problem Status W/U Status Risk Notes Problem Long-term current use of anticoagulant ([id number]) 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 anticoagulants (Z79.01) Active confirmed Problem Abnormal feces ([id number]) Abnormal findings in stool (R19.5) Active confirmed Plan Of Treatment Future Test Test Name Order Date COLONOSCOPY 12/28/2022 Insurance Providers Payer Name Payer Address Payer Phone Subscriber Number Group Number Insured Name Patient Relationship to Insured Coverage Start Date Coverage End Date [facility] [address] [facility] [place] [phone] [id number] RENNY ANDERSON Self - patient is the insured Medical (General) History Medical History History ICD Code Hyperlipidemia Hodgkin's disease status pos t colectomy and radiation with radiation fibrosis Nonischemic cardiomyopathy Aortic stenosis BPH Anxiety Left bundle-branch block Asthma/COPD Surgical History Surgery Date(Month/Year) Splenectomy 1985 Pacemaker/defibrillator 2019
--- OUTSIDE RECORDS SUMMARY | 2025-05-12 10:08 | XMS_ITS | Patient Health Record ---
Author Organization Arnaud Armando III, MD Address [address] [address] Care Team Providers Care Drawing Kiln Operator Name Role Phone Dr. Arnaud Armando III Primary Care Provider [phone] Allergies Allergen (clinical drug ingredient) Drug/Non Drug Allergy documented on EMR Reaction Allergy Type Onset Date Status No Known Drug Allergy Unknown Drug Allergy Active Results Component Value Reference Range Notes PROFILE, FASTING (COMPREHENS DARRELL METABOLIC) Reviewed date:09/18/2024 01:37:11 PM Interpretation: Performing Lab: Notes/Report: BRAIN NATRIURETIC PEPTIDE (B HOLE DIGGER) Reviewed date:09/18/2024 01:37:21 PM Interpretation: Performing Lab: [...] Prealbumin Reviewed date:07/22/2024 05:18:01 PM Interpretation: Performing Lab:[facility], [address] [place] [phone] Notes/Report: FAX RESULTS TO [phone] Prealbumin 24.0 20-40 mg/dL Free T4 (Free Thyroxine) Reviewed date:07/22/2024 05:18:01 PM Interpretation: Performing Lab:[facility], [address] [place] [phone] Notes/Report: FAX RESULTS TO [phone] Free T4 (Free Thyroxine) 1.15 0.71-1.85 ng/dL US thyroid Reviewed date:08/22/2024 10:11:23 AM Interpretation: Performing Lab: Notes/Report: Thyroid Stimulating Hormone Reviewed date:07/22/2024 05:18:01 PM Interpretation: Performing Lab:[facility], [address] [place] [address] Notes/Report: FAX RESULTS TO [phone] Thyroid Stimulating Hormone 2.68 0.32-4.0 uIU/mL Note: A sustained TSH level above 2.5 uIU/mL may warrant further investigation. TSH 3rd Generation ([facility]) CT chest wo con Reviewed date:12/14/2024 08:17:31 PM Interpretation: Performing Lab: Notes/Report: [address] [place] [address] CT Scan Report Signed Patient: Nicholas Anderson MR#: [id number] : 1955 Acct:[id number] Age/Sex: 69 / M ADM Date: 10/14/24 Loc: HO.CT Attending Dr: Jose Corey MD Ordering Physician: Jose Corey MD Date of Service: 10/14/24 Procedure(s): CT chest wo IV con Accession Number(s): [id number] cc: Arnaud Armando MD; Jose Corey MD Report Number: [id number]: Total DLP = 150.00 mGy-cm CLINICAL HISTORY: [...] 10/15/24 1429 DD/ 1428 TD/TT: 10/15/24 1428 Rn Manager: [place] [address] [address] Scan Report Signed Patient: Nicholas Anderson MR#: [id number] : 1955 Acct:[id number] Age/Sex: 69 / M ADM Date: 10/14/24 Loc: HO.CT Attending Dr: Jose Corey MD Ordering Physician: Jose Corey MD Date of Service: 10/14/24 Procedure(s): CT odalis [facility] wo IV con Accession Number(s): [id number] cc: Arnaud Armando MD; Jose Corey MD Report Number: [id number]: Total DLP = 150.00 mGy-cm CLINICAL HISTORY: [...] 10/15/24 1429 DD/ 1428 TD/TT: 10/15/24 1428 Rn Manager: CT chest wo con Reviewed date:04/27/2025 08:50:05 AM Interpretation: Performing Lab: Notes/Report: [address] [address] [address] Scan Report Signed Patient: Nicholas Anderson MR#: [id number] : 1955 Acct:[id number] Age/Sex: 69 / M ADM Date: 04/16/25 Loc: HO.CT Attending Dr: Jose Corey MD Ordering Physician: Jose Corey MD Date of Service: 04/16/25 Procedure(s): CT chest wo IV con Accession Number(s): [id number] cc: Arnaud Armando MD; Jose Corey MD Report Number: [id number]: Total DLP = 143.00 mGy-cm Reason for Exam: R91.8 - Other nonspecific abnormal finding of lung field CLINICAL HISTORY: R91.8 - Other nonspecific abnormal finding of lung field CT chest without contrast Comparison: CT/SR - CT CHEST WO IV CON - 10/14/24 10:[address]/SR - CT CHEST WITHOUT IV CONTRAST - 10/14/24 10:15 EDT Findings: No cardiomegaly. Aortic valve replacement. Moderate diffuse atherosclerotic coronary arteries. Multiple subcentimeter lymph nodes within the mediastinum, similar to prior. Increasing airway thickening and reticulonodular densities within the lung bases. Stable rounded 10 mm nodule at the left lung base, axial 124. New focal ill-defined consolidation within the medial lingula, axial images 94-100. Several new ill-defined smaller nodules are present peripheral to this. Scattered ground-glass densities, regions of scarring and/or atelectasis are again noted. No effusion. No pneumothorax. No acute osseous finding. Impression: Increased bibasilar airway thickening, regions of endobronchial plugging and reticulonodular densities. New ill-defined lingular consolidation with several nodular densities peripheral to this. Correlation for acute infection and three-month follow-up recommended. This document has been electronically signed by: Laci Mi MD on 04/23/2025 14:00:41 Dictated By: Laci Mi MD Signed By: <Electronically signed by Laci Mi MD in OV> 04/23/25 1400 DD/ 1400 TD/TT: 04/23/25 1400 Rn Manager: [address] [address] [address] Scan Report Signed Patient: Nicholas Anderson MR#: [id number] : 1955 Acct:[id number] Age/Sex: 69 / M ADM Date: 04/16/25 Loc: HO.CT Attending Dr: Jose Corey MD Ordering Physician: Jose Corey MD Date of Service: 04/16/25 Procedure(s): CT odalis [facility] wo IV con Accession Number(s): [id number] cc: Arnaud Armando MD; Jose Corey MD Report Number: [id number]: Total DLP = 143.00 mGy-cm Reason for Exam: R91 .8 - Other nonspecific abnormal finding of lung field CLINICAL HISTORY: R9 1.8 - Other nonspecific abnormal finding of lung field CT chest without contrast Comparison: CT/SR - CT CHEST WO IV CON - 10/14/24 10:[address]/SR - CT CHEST WIT HOUT IV CONTRAST - 10/14/24 10:15 EDT Findings: No cardiomegaly. Aortic valve replacement. Moderate diffuse atherosclerotic coronary arteries. Multiple subcentimet er lymph nodes within the mediastinum, similar to prior. Increasing airway thickening and reticulonodular densities within the lung bases. Stable rounded 10 mm nodule at the left lung base, axial 124. New focal ill-define d consolidation within the medial lingula, axial images 94-100. Sever al new ill-defined smaller nodules are present peripheral to this. Scattered ground-gla ss densities, regions of scarring and/or atelectasis are again noted. No effusion. No pneumothorax. No acute osseous finding. Impression: Increased bibasilar airway thickening, regions of endobronchial plugging and reticulonodular densities. New ill-defined ling ular consolidation with several nodular densities peripheral to this. Correlation for acute infection and three-month follow-up recommended. This document has be en electronically signed by: Laci Mi MD on 04/23/2025 14:00:41 Dictated By: Laci Mi MD Signed By: <Electronically signed by Laci Mi MD in OV> 04/23/25 1400 DD/ 1400 TD/TT: 04/23/25 1400 Rn Manager: Reason For Referral No Information Medications Medication SIG (Take, Route, Frequency, Duration) Notes Start Date End Date Status Krill Oil 500 MG as directed Orally Active Xarelto 20 MG 1 tablet with food O rally Once a day Active Wixela Inhub 250-50 MCG/ACT INHALE 1 PUF F BY MOUTH TWICE A DAY Active Rosuvastatin Calcium 20 MG 1 tablet Oral ly Once a day Active Entresto 24-26 MG 1 tablet Orally Twic e a day Active Vitamin E 400 UNIT [...] Problem Status W/U Status Risk Notes Problem 0460365 Former smoker (Z87.891) Active confirmed He is highly motivated not to smoke. He has a plan to prevent relapse an time of stress and illness. Problem 682075610 Asthma (J45.909) Active confirmed He is breathing comfortably. No wheezes are heard on examination. No change in his regimen as needed. His COPDD is mild. Problem 413649727 Overweight (E66.3) Active confirmed His body mass index is 25.54. I recommended stabilizing his weight at this level and then gradually reducing it over the summer time. Problem Weight loss (147656357) Weight loss (R63.4) Active confirmed His BMI is now 23. Her continue to watch his weight to see if it becomes under weight. A thyroid evaluation has been ordered. Problem 63896172 Anxiety (F41.9) Active confirmed His anxiety is well controlled at this time. No additional therapy is necessary. Problem Essential hypertension (86819577) Essential (primary) hypertension (I10) Active confirmed His blood pressure today is normal and well controlled and no change in his regimen was needed. Problem Benign prostatic hyperplasia (047172229) BPH (benign prostatic hyperplasia) (N40.0) Active confirmed He rises from sleep at most once a night to urinate. We have discussed his options for treatment. We reviewed lifestyle modifications he can make to decrease nocturia. Problem 042625918 Anticoagulated (Z79.01) Active confirmed He told me tokiara y that he has stopped taking his xarelto. He dislikes the cost and does not think he needs it. He was adamant about not restarting it.I urged him to speak to the hoseman about this at the upcoming visit. Problem 57557757 COPD (chronic obstructive pulmonary disease) (J44.9) Active confirmed He is not smoking and his COPD is mild. No change in his therapy was needed. Problem Thyroid nodule (569487047) Thyroid nodule (E04.1) Active confirmed A repeat ultrasound of the thyroid at [facility] has been ordered as has thyroid function tests. Problem 24828023 Cardiomyopathy (I42.9) Active confirmed His cardiomyopathy is compensated and there was no sign of congestive heart failure today. He is seen regularly by the hoseman. He is doing much better on the entresto. Problem 56641736 Other and unspecified hyperlipidemia (E78.5) Active confirmed His lipids have been stable. No change in his regimen was made today. Problem 753430324 Hodgkin's disease (C81.90) Active confirmed There is no sign of a new primary lymphoma. Problem 65456895 Aortic stenosis (Q25.3) Active confirmed He had the TAVR at [facility] September 30, 2024. The new valve appears to be working well. 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 Problem 63180210 Hyperlipidemia, unspecified hyperlipidemia type (E78.5) Active confirmed Comprehensive blood work is not available today. A fasting lipid profile has been ordered. Problem 621216668 Hematoma (T14.8XXA) Active confirmed We are going to observe this with our treatment as it seems to be improving. He is going to notify me if there is any adverse change. Problem 499415563 Positive colorectal cancer screening using Cologuard test (R19.5) Active confirmed He has had a colonoscopy that did not show a malignancy. Several polyps were removed. He had no complications afterward. Problem 320434675 Nonrheumatic aortic valve insufficiency (I35.1) Active confirmed He is currently be considered for TAVR. Vital Signs Heart Rate 78 /min 05/04/2025 Temperature 98.1 degrees Fahrenheit 05/04/2025 Blood pressure diastolic 75 mm Hg 05/04/2025 Height 70 in 05/04/2025 Blood pressure systolic 119 mm Hg 05/04/2025 Weight 170 lbs 05/04/2025 BMI 24.39 kg/m2 05/04/2025 Encounters Encounter Location Date Provider Diagnosis Arnaud Armando III, MD [address] [place] [address] [place] [address] 05/15/2024 Arnaud Armando Aortic stenosis Q25. 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 3 [...] (primary) hypertension I10 Arnaud Armando III, MD [address] [place] [address] [place] [address] 07/30/2024 Arnaud Armando Aortic stenosis Q25. 3 ; Cardiomyopathy I42.9 ; Hodgkin's disease C81.90 ; Other and unspecified hyperlipidemia E78.5 ; Asthma J45.909 ; COPD (chronic obstructive pulmonary disease) J44.9 ; Neuromuscular disease G70.9 ; Pulmonary nodules R91.8 and Thyroid nodule E04.1 Arnaud Armando III, MD [address] [place] [address] [place] [address] 08/13/2024 Arnaud Armando Aortic stenosis Q25. 3 ; Hodgkin's disease C81.90 ; Asthma J45.909 ; COPD (chronic obstructive pulmonary disease) J44.9 ; Neuromuscular disease G70.9 and Former smoker Z87.891 Arnaud Armando III, MD [address] [place] [address] [place] [address] 09/18/2024 Arnaud Armando Aortic stenosis Q25. 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 3 ; Weight loss R63.4 ; Cardiomyopathy I42.9 ; Hodgkin's disease C81.90 ; COPD (chronic obstructive pulmonary disease) J44.9 ; Asthma J45.909 ; Essential (primary) hypertension I10 and Former smoker Z87.891 Arnaud Armando III, MD [address] [place] [address] [place] [address] 01/02/2025 Arnaud Armando Aortic stenosis Q25. 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 05/15/2024 Aortic stenosis (ICD-10 - Q25.3) He will continue to see the hoseman and appropriate intervals. He would be a good medical candidate for cardiac surgery if necessary.Appointment to see his hoseman this month. 07/21/2024 Aortic stenosis (ICD-10 - Q25.3) He will continue to see the hoseman and appropriate intervals. He would be a good medical candidate for cardiac surgery if necessary.Appointment to see his hoseman this month. 07/21/2024 Nonrheumatic aortic valve insufficiency (ICD-10 - I35.1) He is currently be considered for TAVR. 07/30/2024 Cardiomyopathy (ICD-10 - I42.9) His cardiomyopathy is compensated and there was no sign of congestive heart failure today. He is seen regularly by the hoseman. He is doing much better on the entresto. 07/30/2024 Aortic stenosis (ICD-10 - Q25.3) He will continue to see the hoseman and appropriate intervals. He would be a good medical candidate for cardiac surgery if necessary.Appointment to see his hoseman this month. 08/13/2024 Hodgkin's disease (ICD-10 - [...] He will proceed to the TAVR at [facility] September 30, 2024. I found no contraindication to the procedure today. 11/20/2024 Weight loss (ICD-10 - R63.4) His BMI is now 23. Her continue to watch his weight to see if it becomes under weight. A thyroid evaluation has been ordered. 11/20/2024 Aortic stenosis (ICD-10 - Q25.3) He had the TAVR at [facility] September 30, 2024. The new valve appears to be working well. 01/02/2025 Anxiety (ICD-10 - F41.9) His anxiety is well controlled at this time. No additional therapy is necessary. 01/02/2025 Aortic stenosis (ICD-10 - Q25.3) He had the TAVR at [facility] September 30, 2024. The new valve appears to be working well. 02/17/2025 Aortic stenosis (ICD-10 - Q25.3) He had the TAVR at [facility] September 30, 2024. The new valve appears to be working well. 02/17/2025 Hematoma (ICD-10 - T14.8XXA) We are going to observe this with our treatment as it seems to be improving. He is going to notify me if there is any adverse change. 05/04/2025 Thyroid nodule (ICD-10 - E04.1) A repeat ultrasound of the thyroid at [facility] has been ordered as has thyroid function tests. 05/04/2025 Aortic stenosis (ICD-10 - Q25.3) He had the TAVR at [facility] September 30, 2024. The new valve appears to be working well. 05/15/2024 BPH (benign prostatic hyperplasia) (ICD-10 - [...] today. He is seen regularly by the hoseman. He is doing much better on the entresto. 01/02/2025 Hodgkin's disease (ICD-10 - C81.90) There is no sign of a new primary lymphoma. 02/17/2025 Cardiomyopathy (ICD-10 - I42.9) His cardiomyopathy is compensated and there was no sign of congestive heart failure today. He is seen regularly by the hoseman. He is doing much better on the entresto. 05/04/2025 Other and unspecified hyperlipidemia (ICD-10 - E78.5) His lipids have been stable. No change in his regimen was made today. 05/15/2024 Hodgkin's disease (ICD-10 - C81.90) There [...] today. He is seen regularly by the hoseman. He is doing much better on the [...] No change in his therapy was needed. 05/04/2025 Former smoker (ICD-10 - Z87.891) He is highly motivated not to smoke. He has a plan to prevent relapse an time of stress and illness. 05/15/2024 COPD (chronic obstructive pulmonary disease) (ICD-10 - J44.9) He is not smoking and his COPD is mild. No change in his therapy was needed. 07/21/2024 Cardiomyopathy (ICD-10 - I42.9) His cardiomyopathy is compensated and there was no sign of congestive heart failure today. He is seen regularly by the hoseman. He is doing much better on the [...] regimen as needed. His COPDD is mild. 05/04/2025 Cardiomyopathy (ICD-10 - I42.9) His cardiomyopathy is compensated and there was no sign of congestive heart failure today. He is seen regularly by the hoseman. He is doing much better on the entresto. 05/15/2024 Former smoker (ICD-10 - Z87.891) He [...] control substances which are habit forming. 05/04/2025 Hodgkin's disease (ICD-10 - C81.90) There is no sign of a new primary lymphoma. 05/15/2024 Asthma (ICD-10 - J45.909) He is [...] an time of stress and illness. 05/04/2025 Osteoblastoma (ICD-10 - D16.9) 05/15/2024 Radiation fibrosis of soft tissue from [...] change in his regimen was needed. 05/04/2025 Radiation fibrosis of soft tissue from [...] control substances which are habit forming. 05/15/2024 HTN (hypertension) (ICD-10 - I10) His blood pressure is normal and well controlled and no change in his regimen was needed today.Today's blood pressure [id number]. 07/21/2024 Asthma (ICD-10 - J45.909) He is [...] modifications he can make to decrease nocturia. 05/04/2025 Essential (primary) hypertension (ICD-10 - I10) His blood pressure today is normal and well controlled and no change in his regimen was needed. 07/21/2024 Other and unspecified hyperlipidemia (ICD-10 - E78.5) Her recent lipid profile shows good control of his lipids in no change in his regimen was needed. 05/04/2025 BPH (benign prostatic hyperplasia) (ICD-10 - N40.0) He rises from sleep at most once a night to urinate. We have discussed his options for treatment. We reviewed lifestyle modifications he can make to decrease nocturia. 07/21/2024 Former smoker (ICD-10 - Z87.891) He [...] Date PROFILE, FASTING (COMPREHENSIVE METABOLI C) 05/04/2025 PROFILE, FASTING (COMPREHENSIVE METABOLI C) 11/20/2024 PROFILE, FASTING (COMPREHENSIVE METABOLI C) 01/02/2025 TSH (THYROID STIMULATING HORMONE) 2024 TSH (THYROID STIMULATING HORMONE) 2024 PSA, TOTAL 01/02/2025 CBC w DIFF 05/04/2025 CBC w DIFF 11/20/2024 CBC w DIFF 01/02/2025 FREE T3 (FT3) 11/20/2024 Lipid Panel 11/20/2024 Lipid Panel 05/04/2025 Lipid Panel 01/02/2025 Free T4 (Free Thyroxine) 11/20/2024 Free T4 (Free Thyroxine) 05/04/2025 US thyroid 05/04/2025 Next Appt Details Provider Name:Arnaud Armando , 07/22/2025 09:30:00 AM, [address] [place] [address] , [place] [address], [place], [address], Insurance Providers Payer Name Payer Address Payer Phone Subscriber Number Group Number Insured Name Patient Relationship to Insured Coverage Start Date Coverage End Date [facility] [address] [place] [phone] [id number] Nicholas Anderson Self - patient is the insured 9 MED[employer]ARE NGS [address] [place] [address] [id number] Nicholas Anderson Self - patient is the [...]
== END 2025-05-12 09:30 | disposition home or self-care (01) ==
PROVIDERS: PCP Internal Medicine Medical Oncology; Visit Provider Internal Medicine Pulmonary Disease
DX: J44.9 Chronic obstructive pulmonary disease, unspecified (principal); R91.8 Other nonspecific abnormal finding of lung field
CPT/HCPCS: 99214

== ENCOUNTER → 2025-05-12 09:04 | Outpatient (BNVA) | payer MEDICARE, SELFPAY | PROVIDERS: PCP Internal Medicine Medical Oncology; Visit Provider Internal Medicine Pulmonary Disease | DX: J44.9 Chronic obstructive pulmonary disease, unspecified (principal); R91.8 Other nonspecific abnormal finding of lung field | CPT/HCPCS: 99212 ==